=== PATIENT | female | born 1935 | race Caucasian/White ===

== ENCOUNTER 2017-03-01 23:31 | Inpatient (IN) | payer MEDICARE ==
[2017-03-01 23:42] LABS: Lactic Acid 2.6 (0.4-2.0); VBG BASE EXCESS -0.3 (-2.0-2.0); VBG CARBOXYHEMOGLOBIN 2.2 % T HGB (0.0-6.9); VBG HCO3- 28.3 meq/L (22-28); VBG HEMOGLOBIN 14.1; VBG O2 SATURATION 71.9 (95-100); VBG POTASSIUM 4.7 (3.5-5.1); VBG pH 7.26 (7.32-7.42)
[2017-03-01] MEDS ORDERED: DUONEB 0.5-3 MG/3 ml Neb IH ONE ×2 (23:44→23:48)
[2017-03-01] MEDS ORDERED: Lasix 40 MG/4 ML IV ONE (23:44)
[2017-03-01 23:47] LABS: BASOPHIL % 0.4 % (0.0-0.4); Eosinophil % 2.8 % (0.00-5.0); Granulocytes % 53.3 % (36.0-66.0); Lymphocytes % 35.9 % (24.0-44.0); Mean Cell Volume 100.2 fl (78-100); Mean Corpuscular Hemoglobin 31.9 pg (26-32); Mean Platelet Volume 10.1 fl (6-9.5); Monocytes % 7.6 % (0.0-12.0); Platelet Count 213 K/mm3 (150-450); Red Blood Count 4.17 M/mm3 (4.1-5.4); Red Cell Distribution Width 13.7 % (11.5-14.0); White Blood Count 11.3 K/mm3 (4.0-10.5)
[2017-03-01] MEDS ORDERED: Lasix 40 MG/4 ML ONE (23:47)
[2017-03-01] MEDS ORDERED: Zithromax 500 MG/ 250 ML NaCl Premix 500 MG/250 ML IVPB IV STA (23:56)
[2017-03-01] MEDS ORDERED: ROCEPHIN 1 Gm-D5w 50 ml Bag** 1 G/50 ML IVPB IV STA (23:56)
[2017-03-02] MEDS ORDERED: Zithromax 500 MG/ 250 ML NaCl Premix 500 MG/250 ML IVPB IV ONE
[2017-03-02] MEDS ORDERED: ROCEPHIN 1 Gm-D5w 50 ml Bag** 1 G/50 ML IVPB IV ONE
[2017-03-02 00:11] LABS: ADD URINE CULTURE? YES (NO); Bacteria MODERATE /HPF (NEGATIVE); COMPLETE URINE MICROSCOPIC? YES; Collection Type CLEAN CATCH; Epithelial Cells MODERATE /HPF (FEW); Mucus MODERATE /HPF (NEGATIVE); Ph 5.5 (5-6)
[2017-03-02 00:16] LABS: INR 1.45 (0.8-3.0); PROTIME 16.3 SECONDS (9.95-12.35)
[2017-03-02 00:17] LABS: ALBUMIN 3.8 g/dL (3.4-5.0); BILIRUBIN,TOTAL 1.4 mg/dL (0.2-1.0); Carbon Dioxide 27.6 mEq/L (21-32); MAGNESIUM 2.2 mg/dL (1.8-2.4); Potassium 4.5 mEq/L (3.5-5.1); Total Protein 7.6 gm/dL (6.4-8.2)
[2017-03-02 00:19] LABS: PTT 28.6 SECONDS (25.3-37.0)
--- NOTE | 2017-03-02 00:27 | ERPHSYRPT ---
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 She has hx of COPD, CHF, and prior AICD. She uses home oxygen. She is on [facility]. Daughters reports she has been skipping some lasix doses as her ankles were not swollen. She has increasing dyspnea all day today. No cough or fever. No chest pain. She is on eliquis and ASA for afib and took those today. Missed AM lasix today. Worsened shortness of breath so called EMS. Initial saturations 70's but required CPAP for improvement. Symptoms severe. Timing/Duration: today Severity of Dyspnea-Max: severe Severity of Dyspnea-Current: severe Allergies/Adverse Reactions: OLIVIA Inhibitors Allergy (Intermediate, Verified 03/02/17 00:05) Home Medications: Amlodipine Besylate 5 mg [Norvasc 5 mg] 5 mg PO DAILY 03/02/17 [History] Apixaban [Eliquis] 2.5 mg PO BID 03/02/17 [History] Aspirin 81 gm Chew [Baby Aspirin 81 mg Chew] 81 mg PO DAILY 03/02/17 [ History] Atorvastatin Calcium [Lipitor] 20 mg PO HS 03/02/17 [History] Citalopram Hydrobromide 20 mg* [ceLEXa 20 MG] 20 mg PO DAILY 03/02/17 [ History] Furosemide 20 mg [Lasix 20 mg] 20 mg PO BID 03/02/17 [History] Levothyroxine Sodium 112 Mcg [Synthroid 112 Mcg] 112 mcg PO DAILY 03/02/17 [History] Nitroglycerin 0.4 mg (Ed) [Nitrostat 0.4 MG (ED)] 0.4 mg SL UD 03/02/17 [ History] Tramadol HCl 50 mg [Ultram 50 mg] 50 mg PO UD 03/02/17 [History] Hx Tetanus, Diphtheria Vaccination/Date Given: No Hx Influenza Vaccination/Date Given: Yes Hx Pneumococcal Vaccination/Date Given: Yes Immunizations Up to Date: Yes - Review of Systems Constitutional: Malaise, Weakness, No Fever, No Chills Eyes: No Symptoms Ears, Nose, & Throat: No Symptoms Respiratory: Dyspnea, No Cough Cardiac: Edema, No Chest Pain Abdominal/Gastrointestinal: No Abdominal Pain, No Nausea, No Vomiting All Other Systems: Reviewed and Negative - Past Medical History Pertinent Past Medical History: Yes Cardiac History: Arrhythmia, Congestive Heart Failure, Hypertension Respiratory History: COPD Endocrine Medical History: Hypothyroidism - Past Surgical History Past Surgical History: Yes Cardiac: CABG Other Surgical History: AICD - Social History Smoking Status: Never smoker Drug Use: none Patient Lives Alone: No - Nursing Vital Signs Nursing Vital Signs: Initial Vital Signs Temperature 96.5 F Temperature Source Core Pulse Rate 82 Respiratory Rate 24 Blood Pressure [] 113/66 Pain Intensity 0 - Physical Exam General Appearance: alert Eye Exam: PERRL/EOMI Neck Exam: normal inspection, non-tender, supple Respiratory Exam: respiratory distress, diminished breath sounds Cardiovascular/Chest Exam: irregular, No edema Abdominal/Gastrointestinal Exam: soft, No tenderness, No distention Extremity Exam: non-tender, pedal edema (mild) Neurologic Exam: alert, oriented x 3, cooperative Skin Exam: warm, dry, No rash SpO2 Interpretation: normal, O2 applied SpO2: 100 Oxygen Delivery: BiPap - Course Nursing assessment & vital signs reviewed: Yes EKG Interpreted by Me: RATE, A-fib (with some pacemaker rhythm), Non-specific ST Changes (similar to prior tracing) - Radiology Exams cxr X-ray Interpretation: Interpreted by me (COPD with bilateral infiltates consistent with CHF) Ordered Tests: Active Orders 24 hr Category Date Time Status Lift Team Technician STAT Care 03/01/17 23:34 Active Catheter-[place] Conrad STAT Care 03/01/17 23:34 Active EKG-ER Only STAT Care 03/01/17 23:34 Active IV Insertion STAT Care 03/01/17 23:34 Active NPO (ED) STAT Care 03/01/17 23:34 Active Pulse Oximetry (ED) STAT Care 03/01/17 23:34 Active CHEST 1 VIEW (PORTABLE) Stat Exams 03/01/17 23:34 Taken BLOOD CULTURE Stat Lab 03/01/17 23:40 Received CBC W DIFF Stat Lab 03/01/17 23:40 Completed CMP Stat Lab 03/01/17 23:40 Completed CULTURE,URINE Stat Lab 03/01/17 23:51 Received Lactic Acid Stat Lab 03/01/17 23:34 Results Lactic Acid Urgent Lab 03/02/17 00:40 Completed MAGNESIUM Stat Lab 03/01/17 23:40 Completed NT PRO BNP Stat Lab 03/01/17 23:40 Completed PROTIME WITH INR Stat Lab 03/01/17 23:40 Completed PTT Stat Lab 03/01/17 23:40 Completed TROPONIN Q3H Lab 03/01/17 23:48 Completed TROPONIN Q3H Lab 03/02/17 02:45 Ordered TROPONIN Q3H Lab 03/02/17 05:45 Ordered TROPONIN Q3H Lab 03/02/17 08:45 Ordered TROPONIN Q3H Lab 03/02/17 11:45 Ordered UA W/ MICROSCOPIC Stat Lab 03/01/17 23:51 Completed VENOUS BLOOD GAS Stat Lab 03/01/17 23:34 Results VENOUS BLOOD GAS Urgent Lab 03/02/17 00:40 Completed Respiratory Nebulizer STAT RT 03/01/17 23:45 Completed Medication Summary Generic Name Dose Route Start Last Admin Trade Name Freq PRN Reason Stop Dose Admin Azithromycin 500 mg in 250 mls @ 250 mls/hr 03/01/17 23:56 03/02/17 00:07 Zithromax 500 Mg/ 250 Ml Nacl Premix IV 03/02/17 00:55 250 mls/hr STAT STA Administration Discontinued Medications Generic Name Dose Route Start Last Admin Trade Name Freq PRN Reason Stop Dose Admin Albuterol/Ipratropium 3 ml 03/01/17 23:44 03/01/17 23:49 Duoneb 0.5-3 Mg/3 Ml Neb IH 03/01/17 23:45 3 ml STAT ONE Administration Albuterol/Ipratropium Confirm 03/01/17 23:48 Duoneb 0.5-3 Mg/3 Ml Neb Administered 03/01/17 23:49 Dose 3 ml IH .STK-MED ONE Furosemide 40 mg 03/01/17 23:44 03/01/17 23:58 Lasix 40 Mg/4 Ml IV 03/01/17 23:45 40 mg STAT ONE Administration Furosemide Confirm 03/01/17 23:47 Lasix 40 Mg/4 Ml Administered 03/01/17 23:48 Dose 40 mg .ROUTE .STK-MED ONE Ceftriaxone Sodium/Dextrose 1 g in 50 mls @ 100 mls/hr 03/01/17 23:56 00:04 Rocephin 1 Gm-D5w 50 Ml Bag IV 03/02/17 00:25 100 mls/hr STAT STA Administration Azithromycin Confirm 03/02/17 00:00 Zithromax 500 Mg/ 250 Ml Nacl Premix Administered 03/02/17 00:01 Dose 500 mg in 250 mls @ ud IV .STK-MED ONE Ceftriaxone Sodium/Dextrose Confirm 03/02/17 00:00 Rocephin 1 Gm-D5w 50 Ml Bag Administered 03/02/17 00:01 Dose 1 g in 50 mls @ ud IV .STK-MED ONE Insulin Aspart 5 unit 03/02/17 00:48 Novolog Insulin SQ 03/02/17 00:49 STAT ONE Lab/Rad Data: Laboratory Result Diagrams 03/01/17 23:40 03/01/17 23:40 Laboratory Results 03/02/17 03/01/17 03/01/17 Range/Units 00:40 23:51 23:48 WBC (4.0-10.5) K/mm3 RBC (4.1-5.4) M/mm3 Hgb (12.0-16.0) gm/dl Hct (35-47) % MCV (78-100) fl MCH (26-32) pg MCHC (32-36) g/dl RDW (11.5-14.0) % Plt Count (150-450) K/mm3 MPV (6-9.5) fl Gran % (36.0-66.0) % Lymphocytes % (24.0-44.0) % Monocytes % (0.0-12.0) % Eosinophils % (0.00-5.0) % Basophils % (0.0-0.4) % Basophils # (0-0.4) INR (0.8-3.0) APTT (25.3-37.0) SECONDS VBG pH 7.26 L (7.32-7.42) VBG pCO2 at Pat Temp 71 H* (42-55) mm/Hg VBG pO2 at Pat Temp 29 (25-40) mm/Hg VBG HCO3 31.9 H* (22-28) meq/L VBG O2 Sat ([place]) 48.7 L (95-100) VBG Base Excess 3.1 H (-2.0-2.0) VBG Hemoglobin 11.7 VBG Carboxyhemoglobin 1.6 (0.0-6.9) % T HGB POC Potassium 4.6 (3.5-5.1) Sodium (136-145) mEq/L Potassium (3.5-5.1) mEq/L Chloride (98-107) mEq/L Carbon Dioxide (21-32) mEq/L Anion Gap (5-15) MEQ/L BUN (9-20) mg/dL Creatinine (0.55-1.30) mg/dl Estimated GFR ML/MIN Glucose (70-110) MG/DL Lactic Acid 1.8 (0.4-2.0) Calcium (8.5-10.1) mg/dL Magnesium (1.8-2.4) mg/dL Total Bilirubin (0.2-1.0) mg/dL AST (15-37) U/L ALT (12-78) U/L Alkaline Phosphatase (46-116) U/L Troponin I < 0.017 (0.000-0.056) ng/ml NT-Pro-B Natriuret Pep (0-450) pg/ml Serum Total Protein (6.4-8.2) gm/dL Albumin (3.4-5.0) g/dL Ur Collection Type CLEAN CATCH Urine Color YELLOW (YELLOW) Urine Appearance SLIGHTLY CLOUDY (CLEAR) Urine pH 5.5 (5-6) Ur Specific [place] >=1.030 (1.005-1.025) Urine Protein 100 (Negative) Urine Glucose (UA) NEGATIVE (NEGATIVE) mg/dL Urine Ketones NEGATIVE (NEGATIVE) Urine Nitrite NEGATIVE (NEGATIVE) Urine Bilirubin NEGATIVE (NEGATIVE) Urine Urobilinogen 2 (0-1) mg/dL Urine WBC (Auto) SMALL (NEGATIVE) Urine RBC (Auto) LARGE (0-5) Gaston/ul Urine Microscopic RBC 25-50 (0-2) /HPF Urine Microscopic WBC 10-15 (0-5) /HPF Ur Epithelial Cells MODERATE (FEW) /HPF Urine Bacteria MODERATE (NEGATIVE) /HPF Urine Mucus MODERATE (NEGATIVE) /HPF Specimen Received 03/01/17 [id number] 03/01/17 03/01/17 03/01/17 Range/Units 23:40 23:40 23:40 WBC 11.3 H (4.0-10.5) K/mm3 RBC 4.17 (4.1-5.4) M/mm3 Hgb 13.3 (12.0-16.0) gm/dl Hct 41.8 (35-47) % MCV 100.2 H (78-100) fl MCH 31.9 (26-32) pg MCHC 31.8 L (32-36) g/dl RDW 13.7 (11.5-14.0) % Plt Count 213 (150-450) K/mm3 MPV 10.1 H (6-9.5) fl Gran % 53.3 (36.0-66.0) % Lymphocytes % 35.9 (24.0-44.0) % Monocytes % 7.6 (0.0-12.0) % Eosinophils % 2.8 (0.00-5.0) % Basophils % 0.4 (0.0-0.4) % Basophils # 0.04 (0-0.4) INR 1.45 (0.8-3.0) APTT 28.6 (25.3-37.0) SECONDS VBG pH (7.32-7.42) VBG pCO2 at Pat Temp (42-55) mm/Hg VBG pO2 at Pat Temp (25-40) mm/Hg VBG HCO3 (22-28) meq/L VBG O2 Sat ([place]) (95-100) VBG Base Excess (-2.0-2.0) VBG Hemoglobin VBG Carboxyhemoglobin (0.0-6.9) % T HGB POC Potassium (3.5-5.1) Sodium 138 (136-145) mEq/L Potassium 4.5 (3.5-5.1) mEq/L Chloride 100 (98-107) mEq/L Carbon Dioxide 27.6 (21-32) mEq/L Anion Gap 15.0 (5-15) MEQ/L BUN 23 H (9-20) mg/dL Creatinine 1.77 H (0.55-1.30) mg/dl Estimated GFR 29 ML/MIN Glucose 271 H (70-110) MG/DL Lactic Acid (0.4-2.0) Calcium 9.1 (8.5-10.1) mg/dL Magnesium 2.2 (1.8-2.4) mg/dL Total Bilirubin 1.40 H (0.2-1.0) mg/dL AST 34 (15-37) U/L ALT 27 (12-78) U/L Alkaline Phosphatase 90 (46-116) U/L Troponin I (0.000-0.056) ng/ml NT-Pro-B Natriuret Pep 5328 H (0-450) pg/ml Serum Total Protein 7.6 (6.4-8.2) gm/dL Albumin 3.8 (3.4-5.0) g/dL Ur Collection Type Urine Color (YELLOW) Urine Appearance (CLEAR) Urine pH (5-6) Ur Specific [place] (1.005-1.025) Urine Protein (Negative) Urine Glucose (UA) (NEGATIVE) mg/dL Urine Ketones (NEGATIVE) Urine Nitrite (NEGATIVE) Urine Bilirubin (NEGATIVE) Urine Urobilinogen (0-1) mg/dL Urine WBC (Auto) (NEGATIVE) Urine RBC (Auto) (0-5) Gaston/ul Urine Microscopic RBC (0-2) /HPF Urine Microscopic WBC (0-5) /HPF Ur Epithelial Cells (FEW) /HPF Urine Bacteria (NEGATIVE) /HPF Urine Mucus (NEGATIVE) /HPF Specimen Received 03/01/17 Range/Units 23:34 WBC (4.0-10.5) K/mm3 RBC (4.1-5.4) M/mm3 Hgb (12.0-16.0) gm/dl Hct (35-47) % MCV (78-100) fl MCH (26-32) pg MCHC (32-36) g/dl RDW (11.5-14.0) % Plt Count (150-450) K/mm3 MPV (6-9.5) fl Gran % (36.0-66.0) % Lymphocytes % (24.0-44.0) % Monocytes % (0.0-12.0) % Eosinophils % (0.00-5.0) % Basophils % (0.0-0.4) % Basophils # (0-0.4) INR (0.8-3.0) APTT (25.3-37.0) SECONDS VBG pH 7.26 L (7.32-7.42) VBG pCO2 at Pat Temp 63 H* (42-55) mm/Hg VBG pO2 at Pat Temp 41 H (25-40) mm/Hg VBG HCO3 28.3 H (22-28) meq/L VBG O2 Sat ([place]) 71.9 L (95-100) VBG Base Excess -0.3 (-2.0-2.0) VBG Hemoglobin 14.1 VBG Carboxyhemoglobin 2.2 (0.0-6.9) % T HGB POC Potassium 4.7 (3.5-5.1) Sodium (136-145) mEq/L Potassium (3.5-5.1) mEq/L Chloride (98-107) mEq/L Carbon Dioxide (21-32) mEq/L Anion Gap (5-15) MEQ/L BUN (9-20) mg/dL Creatinine (0.55-1.30) mg/dl Estimated GFR ML/MIN Glucose (70-110) MG/DL Lactic Acid 2.6 H (0.4-2.0) Calcium (8.5-10.1) mg/dL Magnesium (1.8-2.4) mg/dL Total Bilirubin (0.2-1.0) mg/dL AST (15-37) U/L ALT (12-78) U/L Alkaline Phosphatase (46-116) U/L Troponin I (0.000-0.056) ng/ml NT-Pro-B Natriuret Pep (0-450) pg/ml Serum Total Protein (6.4-8.2) gm/dL Albumin (3.4-5.0) g/dL Ur Collection Type Urine Color (YELLOW) Urine Appearance (CLEAR) Urine pH (5-6) Ur Specific [place] (1.005-1.025) Urine Protein (Negative) Urine Glucose (UA) (NEGATIVE) mg/dL Urine Ketones (NEGATIVE) Urine Nitrite (NEGATIVE) Urine Bilirubin (NEGATIVE) Urine Urobilinogen (0-1) mg/dL Urine WBC (Auto) (NEGATIVE) Urine RBC (Auto) (0-5) Gaston/ul Urine Microscopic RBC (0-2) /HPF Urine Microscopic WBC (0-5) /HPF Ur Epithelial Cells (FEW) /HPF Urine Bacteria (NEGATIVE) /HPF Urine Mucus (NEGATIVE) /HPF Specimen Received - Progress Progress Note: 03/02/17 00:26 Pt afebrile. LAsix, bipap given. She has possible UTI. Will cover with abtx. Cultures sent. This appears to be CHF exacerbation as prior. Daughters request SCO status with no CPR or ventilator but agree with admission here, bipap, and medication management. CHF likely exacerbated by her lasix noncompliance. 03/02/17 00:54 She is clinically improved. Even speaking to family. pH same. LActic improved. Called Dr Llamas and will admit to ICU. Discussed with .: Gab Will see patient in: hospital (full admit) Counseled pt/family regarding: lab results, diagnosis, need for follow-up, rad results - Departure Time of Disposition: 00:55 Departure Disposition: In-patient Admission Clinical Impression: CHF (congestive heart failure), Atrial fibrillation, UTI (urinary tract infection), Acute respiratory failure Condition: Fair Critical Care Time: Yes Critical Care Time(excluding separately billable procedures): 30-74 minutes Referrals: MITCH LLAMAS MD [Primary Care Provider] -
[2017-03-02 00:45] LABS: Lactic Acid 1.8 (0.4-2.0); VBG BASE EXCESS 3.1 (-2.0-2.0); VBG CARBOXYHEMOGLOBIN 1.6 % T HGB (0.0-6.9); VBG HCO3- 31.9 meq/L (22-28); VBG HEMOGLOBIN 11.7; VBG O2 SATURATION 48.7 (95-100); VBG POTASSIUM 4.6 (3.5-5.1); VBG pH 7.26 (7.32-7.42)
[2017-03-02] MEDS ORDERED: NovoLOG Insulin SQ ONE (00:48)
[2017-03-02] MEDS ORDERED: NovoLOG Insulin ONE (00:56)
[2017-03-02 03:20] LABS: A-aADO2 203; ARTERIAL BLD GAS O2 SATURATION 99.1 % (95-100); ARTERIAL BLOOD GAS BASE EXCESS 4.7 (-2.0-2.0); ARTERIAL BLOOD GAS FIO2 50 %; ARTERIAL BLOOD GAS PO2 101 mmHg (75-100); ARTERIAL BLOOD GAS pH 7.45 (7.35-7.45); BIPAP(E) 6; BIPAP(I) 14
[2017-03-02] MEDS: DUONEB 0.5-3 MG/3 ml Neb IH SCH ×3 (03:25→11:14)
[2017-03-02 05:58] LABS: Mean Cell Volume 99.7 fl (78-100); Platelet Count 143 K/mm3 (150-450); Red Cell Distribution Width 13.6 % (11.5-14.0); White Blood Count 7.5 K/mm3 (4.0-10.5)
[2017-03-02 06:03] LABS: Mean Corpuscular Hemoglobin 32.1 pg (26-32)
[2017-03-02 06:33] LABS: ANION GAP 12.9 MEQ/L (5-15); Potassium 4.1 mEq/L (3.5-5.1)
--- NOTE | 2017-03-02 09:05 | XRAY ---
Indication: Dyspnea. Comparison: December 04, 2011. Portable chest demonstrates interval enlarging heart, central vascular congestion, and small bibasilar effusions favoring cardiac decompensation. Superimposed pneumonia not completely excluded. Again CABG surgery with new left-sided dual lead pacemaker. Bony thorax intact.
[2017-03-02] MEDS: Nitrostat 0.4 MG Tablet SL PRN ×2 (11:14→11:58)
[2017-03-02] MEDS: Lasix 40 MG/4 ML IV SCH ×2 (11:25→17:59)
[2017-03-02] MEDS: ceLEXa 20 MG PO SCH (11:25)
[2017-03-02] MEDS: ELIQUIS PO SCH ×2 (11:25→21:39)
[2017-03-02] MEDS: Pepcid 20 MG VIAL IV SCH ×2 (11:25→21:39)
[2017-03-02] MEDS: NORVASC 5 MG PO SCH (11:25)
[2017-03-02] MEDS: ECOTRIN 81 MG PO SCH (11:25)
[2017-03-02] MEDS: COREG 12.5 MG PO SCH ×2 (11:25→21:39)
[2017-03-02] MEDS: SYNTHROID 112 MCG PO SCH (11:26)
[2017-03-02] MEDS ORDERED: MEDICATION INTERVENTION MC PRN (11:33)
--- NOTE | 2017-03-02 12:54 | PCM.HP ---
History of Present Illness - Chief Complaint Chief Complaint: Shortness of Breath History of Present Illness: 82 y/o patient of Dr De Guzman and Dr sorensen. She has hx of COPD, CHF, and prior AICD. She uses home oxygen. She is on [facility]. Daughters reports she has been skipping some lasix doses as her ankles were not swollen. She has increasing dyspnea all day today. No cough or fever. No chest pain. She is on eliquis and ASA for afib and took those today. Missed AM lasix today. Worsened shortness of breath so called EMS. Initial saturations 70's but required CPAP for improvement. Symptoms severe. - Review of Systems Constitutional: No Fever, No Chills Eyes: No Symptoms Ears, Nose, & Throat: No Symptoms Respiratory: Orthopnea, Short Of Breath, No Cough Cardiac: Edema, Palpitations, No Chest Pain, No Syncope Abdominal/Gastrointestinal: No Abdominal Pain, No Nausea, No Vomiting, No Diarrhea Genitourinary Symptoms: No Dysuria Musculoskeletal: No Back Pain, No Neck Pain Skin: No Rash Neurological: No Dizziness, No Focal Weakness, No Sensory Changes Psychological: No Symptoms Endocrine: No Symptoms Hematologic/Lymphatic: No Symptoms Immunological/Allergic: No Symptoms Medications & Allergies Home Medications: Home Medication List Amlodipine Besylate 5 mg [Norvasc 5 mg] 5 mg PO DAILY 03/02/17 [History Confirmed 03/02/17] Apixaban [Eliquis] 2.5 mg PO BID 03/02/17 [History Confirmed 03/02/17] Aspirin 81 gm Chew [Baby Aspirin 81 mg Chew] 81 mg PO DAILY 03/02/17 [ History Confirmed 03/02/17] Atorvastatin Calcium [Lipitor] 20 mg PO HS 03/02/17 [History Confirmed 03/02/17] Carvedilol 12.5 mg [Coreg 12.5 mg] 25 mg PO BID 03/02/17 [History Confirmed 03/02/17] Citalopram Hydrobromide 20 mg* [ceLEXa 20 MG] 20 mg PO DAILY 03/02/17 [ History Confirmed 03/02/17] Furosemide 20 mg [Lasix 20 mg] 20 mg PO BID 03/02/17 [History Confirmed ] Levothyroxine Sodium 112 Mcg [Synthroid 112 Mcg] 112 mcg PO DAILY 03/02/17 [History Confirmed 03/02/17] Nitroglycerin 0.4 mg (Ed) [Nitrostat 0.4 MG (ED)] 0.4 mg SL UD 03/02/17 [ History Confirmed 03/02/17] Tramadol HCl 50 mg [Ultram 50 mg] 50 mg PO TIDPRN PRN 03/02/17 [History Confirmed 03/02/17] Allergies/Adverse Reactions: Allergies Allergy/AdvReac Type Severity Reaction Status Date / Time OLIVIA Inhibitors Allergy Intermediate Verified 03/02/17 00:05 - Past Medical History Past Medical History: Yes Neurological History: No Pertinent History ENT History: No Pertinent History Cardiac History: Arrhythmia, Congestive Heart Failure, Hypertension Respiratory History: COPD Endocrine Medical History: Hypothyroidism Musculoskelatal History: No Pertinent History GI Medical History: No Pertinent History History: No Pertinent History Pyscho-Social History: No Pertinent History Reproductive Disorders: No Pertinent History - Female History Are you now?: No - Past Surgical History Past Surgical History: Yes Neuro Surgical History: No Pertinent History Cardiac History: CABG Respiratory Surgery: No Pertinent History GI Surgical History: No Pertinent History Genitourinary Surgical Hx: No Pertinent History Musculskeletal Surgical Hx: No Pertinent History Female Surgical History: No Pertinent History Other Surgical History: AICD replaced by pacemaker 4weeks ago. - Social History Smoking Status: Former smoker Alcohol: None Drug Use: none - Physical Exam Vital Signs: Vital Signs - 24 hr Temp Pulse Resp BP BP Pulse Ox 03/02/17 12:00 99.5 F 124 H 23 115/87 91 L 03/02/17 11:58 140 H 115/87 03/02/17 11:14 140 H 20 131/89 92 L 03/02/17 10:00 99.9 F 136 H 19 131/89 91 L 03/02/17 08:00 98.8 F 115 H 25 H 127/93 92 L 03/02/17 06:48 91 H 18 95 03/02/17 06:00 98.6 F 52 L 14 118/73 95 03/02/17 04:00 98.2 F 86 17 136/67 98 03/02/17 03:25 90 20 96 03/02/17 02:00 98.4 F 92 H 24 122/67 98 03/02/17 01:59 94 H 25 H 134/75 88 L 03/02/17 00:57 92 H 26 H 104/67 99 03/02/17 00:55 100 03/02/17 00:19 82 24 113/66 100 03/01/17 23:50 96.5 F 97 H 30 H 145/78 100 03/01/17 23:49 91 H 25 H 100 Oxygen-Last 24 hours O2 Percentage 5 Liters = 40% O2 Percentage 5 Liters = 40% O2 Percentage 5 Liters = 40% O2 Percentage 40% O2 Percentage 50% O2 Percentage 50% O2 Percentage 6 Liters = 44% General Appearance: no apparent distress, alert Neurologic Exam: alert, oriented x 3, cooperative, normal mood/affect, nml cerebellar function, nml station & gait, sensation nml, No motor deficits Eye Exam: PERRL/EOMI, eyes nml inspection Ears, Nose, Throat Exam: normal ENT inspection, TMs normal, pharynx normal, moist mucous membranes Neck Exam: normal inspection, non-tender, supple, full range of motion Respiratory Exam: normal breath sounds, lungs clear, No respiratory distress Cardiovascular Exam: regular rate/rhythm, normal heart sounds, normal peripheral pulses Gastrointestinal/Abdomen Exam: soft, normal bowel sounds, No tenderness, No mass Back Exam: normal inspection, normal range of motion, No CVA tenderness, No vertebral tenderness Extremity Exam: normal inspection, normal range of motion, pelvis stable Skin Exam: normal color, warm, dry, No rash Lymphatic Exam: No adenopathy Results - Labs Lab/Micro Results: Accuchecks Accucheck Value: 131 Accucheck Value: 148 Lab Results-Last 24 Hours 03/02/17 03/02/17 03/02/17 Range/Units 03:13 03:13 03:14 WBC (4.0-10.5) K/mm3 RBC (4.1-5.4) M/mm3 Hgb (12.0-16.0) gm/dl Hct (35-47) % MCV (78-100) fl MCH (26-32) pg MCHC (32-36) g/dl RDW (11.5-14.0) % Plt Count (150-450) K/mm3 MPV (6-9.5) fl Puncture Site RIGHT BRACHIAL pCO2 42 (35-45) mmHg pO2 101 H (75-100) mmHg Base Excess 4.7 H (-2.0-2.0) O2 Saturation 95.4 (94-100) g/dF ABG pH 7.45 (7.35-7.45) ABG HCO3 29.2 H* (22-28) ABG O2 Sat (Measured) 99.1 (95-100) % Chris Test NOT APPLICABLE A-a Gradient 203 a/A Ratio 0.33 Hemoglobin 10.9 Carboxyhemoglobin 2.5 (0.0-6.9) % THgb Methemoglobin 1.1 L (1.4-1.5) % Potassium 4.0 (3.5-5.1) Temperature 37.0 C POC O2 Flow Rate 50 % Inspiratory BiPAP 14 Expiratory BiPAP 6 Sodium (136-145) mEq/L Chloride (98-107) mEq/L Carbon Dioxide (21-32) mEq/L Anion Gap (5-15) MEQ/L BUN (9-20) mg/dL Creatinine (0.55-1.30) mg/dl Estimated GFR ML/MIN Glucose (70-110) MG/DL Lactic Acid 1.0 (0.4-2.0) Calcium (8.5-10.1) mg/dL Troponin I 0.032 (0.000-0.056) ng/ml NT-Pro-B Natriuret Pep (0-450) pg/ml 03/02/17 03/02/17 03/02/17 Range/Units 05:25 05:25 05:25 WBC 7.5 (4.0-10.5) K/mm3 RBC 3.70 L (4.1-5.4) M/mm3 Hgb 11.9 L (12.0-16.0) gm/dl Hct 36.9 (35-47) % MCV 99.7 (78-100) fl MCH 32.1 H (26-32) pg MCHC 32.2 (32-36) g/dl RDW 13.6 (11.5-14.0) % Plt Count 143 L (150-450) K/mm3 MPV 10.0 H (6-9.5) fl Puncture Site pCO2 (35-45) mmHg pO2 (75-100) mmHg Base Excess (-2.0-2.0) O2 Saturation (94-100) g/dF ABG pH (7.35-7.45) ABG HCO3 (22-28) ABG O2 Sat (Measured) (95-100) % Chris Test A-a Gradient a/A Ratio Hemoglobin Carboxyhemoglobin (0.0-6.9) % THgb Methemoglobin (1.4-1.5) % Potassium 4.1 (3.5-5.1) Temperature C POC O2 Flow Rate % Inspiratory BiPAP Expiratory BiPAP Sodium 141 (136-145) mEq/L Chloride 102 (98-107) mEq/L Carbon Dioxide 30.0 (21-32) mEq/L Anion Gap 12.9 (5-15) MEQ/L BUN 23 H (9-20) mg/dL Creatinine 1.61 H (0.55-1.30) mg/dl Estimated GFR 32 ML/MIN Glucose 121 H (70-110) MG/DL Lactic Acid (0.4-2.0) Calcium 9.2 (8.5-10.1) mg/dL Troponin I 0.037 (0.000-0.056) ng/ml NT-Pro-B Natriuret Pep 6832 H (0-450) pg/ml 03/02/17 03/02/17 Range/Units 08:55 11:42 WBC (4.0-10.5) K/mm3 RBC (4.1-5.4) M/mm3 Hgb (12.0-16.0) gm/dl Hct (35-47) % MCV (78-100) fl MCH (26-32) pg MCHC (32-36) g/dl RDW (11.5-14.0) % Plt Count (150-450) K/mm3 MPV (6-9.5) fl Puncture Site pCO2 (35-45) mmHg pO2 (75-100) mmHg Base Excess (-2.0-2.0) O2 Saturation (94-100) g/dF ABG pH (7.35-7.45) ABG HCO3 (22-28) ABG O2 Sat (Measured) (95-100) % Chris Test A-a Gradient a/A Ratio Hemoglobin Carboxyhemoglobin (0.0-6.9) % THgb Methemoglobin (1.4-1.5) % Potassium (3.5-5.1) Temperature C POC O2 Flow Rate % Inspiratory BiPAP Expiratory BiPAP Sodium (136-145) mEq/L Chloride (98-107) mEq/L Carbon Dioxide (21-32) mEq/L Anion Gap (5-15) MEQ/L BUN (9-20) mg/dL Creatinine (0.55-1.30) mg/dl Estimated GFR ML/MIN Glucose (70-110) MG/DL Lactic Acid (0.4-2.0) Calcium (8.5-10.1) mg/dL Troponin I 0.034 0.038 (0.000-0.056) ng/ml NT-Pro-B Natriuret Pep (0-450) pg/ml Accuchecks Accucheck Value: 131 Accucheck Value: 148 - Other Procedures and Tests Respiratory Therapy 03/02/17 02:24 BiPap/CPAP Assessment ROUTINE 03/02/17 02:25 Oxygen NASAL CANNULA 2 lpm 03/02/17 03:00 Respiratory Nebulizer Q4H Assessment/Plan (1) Atrial fibrillation Current Visit: Yes Status: Acute Code(s): I48.91 - UNSPECIFIED ATRIAL FIBRILLATION (2) CHF (congestive heart failure) Current Visit: Yes Status: Acute Code(s): I50.9 - HEART FAILURE, UNSPECIFIED
[2017-03-02] MEDS: Xopenex 1.25 MG/0.5 ML UD NEBULE IH SCH (18:43)
[2017-03-02] MEDS: PULMICORT 0.5 MG/2 ML RESPULES IH SCH (18:43)
[2017-03-02] MEDS: ZOCOR 20MG PO SCH (21:38)
[2017-03-02] MEDS: NovoLOG Insulin SQ PRN (21:46)
[2017-03-02] MEDS: ROCEPHIN 1 Gm-D5w 50 ml Bag** 1 G/50 ML IVPB IV SCH (21:48)
[2017-03-02] MEDS ORDERED: NON-FORMULARY ITEM (Atorvastatin Calcium [Lipitor] 20 MG) PO SCH (22:00)
[2017-03-02] MEDS ORDERED: LASIX 20 MG PO SCH (22:00)
[2017-03-02] MEDS: Zithromax 500 MG/ 250 ML NaCl Premix 500 MG/250 ML IVPB IV SCH (22:20)
[2017-03-03] MEDS ORDERED: Sodium Chloride 3 ML UD NEBULES IH ONE (06:37)
[2017-03-03] MEDS: Xopenex 1.25 MG/0.5 ML UD NEBULE IH SCH ×2 (06:40→19:43)
[2017-03-03] MEDS: PULMICORT 0.5 MG/2 ML RESPULES IH SCH ×2 (06:40→19:43)
[2017-03-03] MEDS: Lasix 40 MG/4 ML IV SCH ×2 (09:16→17:27)
[2017-03-03] MEDS: COREG 12.5 MG PO SCH ×2 (09:16→22:37)
[2017-03-03] MEDS: ECOTRIN 81 MG PO SCH (09:16)
[2017-03-03] MEDS: SYNTHROID 112 MCG PO SCH (09:16)
[2017-03-03] MEDS: ceLEXa 20 MG PO SCH (09:16)
[2017-03-03] MEDS: Pepcid 20 MG VIAL IV SCH ×2 (09:16→22:37)
[2017-03-03] MEDS: NORVASC 5 MG PO SCH (09:16)
[2017-03-03] MEDS: ELIQUIS PO SCH ×2 (09:17→22:38)
[2017-03-03] MEDS ORDERED: BABY ASPIRIN 81 MG CHEW PO SCH (10:00)
--- NOTE | 2017-03-03 14:31 | XRAY ---
Indication: CHF. Comparison: March 01, 2017. PA/lateral chest again hyperinflated with the heart slightly smaller and diminished vascular congestion. Little to no improvement in the bibasilar infiltrates/atelectasis/effusion. No new abnormalities.
--- NOTE | 2017-03-03 14:44 | PROG NOTE ---
DATE: 03/03/17 Chart reviewed. Events noted. At the time of this evaluation, the patient says she is still having some shortness of breath. Denied chest pain. Complains of cough with occasional phlegm. Denies palpitations. Complains of fatigue. Appears comfortable. VITALS: BP 102/64, heart rate 97, respiratory rate 20, temperature 100, O2 saturations of 92-94% on 5 liters. HEENT: Pallor present. No icterus noted. NECK: No JVD present. CVS: S1 and S2 present. RESPIRATORY: Breath sounds bilaterally diminished. Occasional crackles present. ABDOMEN: Obese, soft, nontender. NEURO: She is alert and awake. Answers simple questions appropriately. EXTREMITIES: Reveals no edema on bilateral lower extremities. There were no new labs today. Medications were reviewed. ASSESSMENT: 82 y/o woman with impression: 1. CONGESTIVE HEART FAILURE WITH DECOMPENSATION. 2. ATRIAL FIBRILLATION. 3. CHRONIC RESPIRATORY FAILURE. 4. HISTORY OF HYPERTENSION/CORONARY ARTERY DISEASE. 5. ANEMIA. 6. RENAL INSUFFICIENCY. 7. ACUTE BRONCHOPNEUMONIA. PLAN: 1. Patient appears to be hemodynamically stable. Patient's directory carrier was contacted by nursing yesterday and they have advised to continue current medications and no transfer is indicated at this time per cardiology. 2. Will continue to follow CBC. 3. Continue IV diuretics and broad spectrum IV antibiotics. 4. Continue to follow labs and chest x-ray. 5. Transfer out of Intensive Care Unit. Plan was discussed with patient. She seems to be in understanding and agreement. Discussed with patient's nurse, Mir.
[2017-03-03] MEDS: NovoLOG Insulin SQ PRN (17:35)
[2017-03-03] MEDS: ULTRAM 50 MG PO PRN (18:39)
[2017-03-03] MEDS ORDERED: TYLENOL 325 MG PO PRN (18:59)
[2017-03-03] MEDS ORDERED: Ativan 2 MG/1 ML VIAL IV PRN (19:02)
[2017-03-03] MEDS: Zithromax 500 MG/ 250 ML NaCl Premix 500 MG/250 ML IVPB IV SCH (22:37)
[2017-03-03] MEDS: ROCEPHIN 1 Gm-D5w 50 ml Bag** 1 G/50 ML IVPB IV SCH (22:37)
[2017-03-03] MEDS: ZOCOR 20MG PO SCH (22:39)
[2017-03-04 05:40] LABS: Mean Cell Volume 97.8 fl (78-100); Mean Platelet Volume 9.8 fl (6-9.5); Platelet Count 150 K/mm3 (150-450); Red Blood Count 3.56 M/mm3 (4.1-5.4); Red Cell Distribution Width 13.9 % (11.5-14.0); White Blood Count 7.6 K/mm3 (4.0-10.5)
[2017-03-04 06:21] LABS: ANION GAP 10.8 MEQ/L (5-15); Carbon Dioxide 29.6 mEq/L (21-32); Potassium 3.1 mEq/L (3.5-5.1)
[2017-03-04] MEDS: Xopenex 1.25 MG/0.5 ML UD NEBULE IH SCH ×2 (06:44→19:12)
[2017-03-04] MEDS: PULMICORT 0.5 MG/2 ML RESPULES IH SCH ×2 (06:44→19:13)
[2017-03-04] MEDS ORDERED: PREVNAR 13 SYRINGE IM ONE (10:00)
[2017-03-04] MEDS: ceLEXa 20 MG PO SCH (11:02)
[2017-03-04] MEDS: COREG 12.5 MG PO SCH ×2 (11:02→22:11)
[2017-03-04] MEDS: Pepcid 20 MG VIAL IV SCH ×2 (11:03→22:12)
[2017-03-04] MEDS: ELIQUIS PO SCH ×2 (11:03→22:10)
[2017-03-04] MEDS: ECOTRIN 81 MG PO SCH (11:03)
[2017-03-04] MEDS: Lasix 40 MG/4 ML IV SCH (11:03)
[2017-03-04] MEDS: NORVASC 5 MG PO SCH (11:03)
[2017-03-04] MEDS: SYNTHROID 112 MCG PO SCH (11:06)
[2017-03-04] MEDS ORDERED: Klor Con 10 MEQ PO SCH ×2 (12:00→18:00)
[2017-03-04] MEDS: Lasix 20 MG/2 ML IV SCH (16:54)
[2017-03-04] MEDS ORDERED: Lasix 40 MG/4 ML IV SCH (17:00)
[2017-03-04] MEDS: ULTRAM 50 MG PO PRN (18:39)
[2017-03-04] MEDS: ZOCOR 20MG PO SCH (22:11)
[2017-03-04] MEDS: ROCEPHIN 1 Gm-D5w 50 ml Bag** 1 G/50 ML IVPB IV SCH (22:12)
[2017-03-04] MEDS: Zithromax 500 MG/ 250 ML NaCl Premix 500 MG/250 ML IVPB IV SCH (22:51)
[2017-03-05 05:50] LABS: Mean Cell Volume 99.4 fl (78-100); Mean Platelet Volume 10.2 fl (6-9.5); Platelet Count 140 K/mm3 (150-450); Red Blood Count 3.48 M/mm3 (4.1-5.4); Red Cell Distribution Width 13.9 % (11.5-14.0); White Blood Count 7.9 K/mm3 (4.0-10.5)
[2017-03-05 05:52] LABS: ANION GAP 9.6 MEQ/L (5-15); Carbon Dioxide 30.3 mEq/L (21-32); Mean Corpuscular Hemoglobin 32.7 pg (26-32); Potassium 3.8 mEq/L (3.5-5.1)
[2017-03-05] MEDS: PULMICORT 0.5 MG/2 ML RESPULES IH SCH ×2 (06:50→18:46)
[2017-03-05] MEDS: Xopenex 1.25 MG/0.5 ML UD NEBULE IH SCH ×2 (06:50→18:46)
[2017-03-05] MEDS: ULTRAM 50 MG PO PRN (08:05)
[2017-03-05] MEDS: NORVASC 5 MG PO SCH (09:53)
[2017-03-05] MEDS: Klor Con 10 MEQ PO SCH (09:53)
[2017-03-05] MEDS: ECOTRIN 81 MG PO SCH (09:54)
[2017-03-05] MEDS: Lasix 20 MG/2 ML IV SCH ×2 (09:54→16:31)
[2017-03-05] MEDS: ceLEXa 20 MG PO SCH (09:54)
[2017-03-05] MEDS: ELIQUIS PO SCH ×2 (09:54→21:17)
[2017-03-05] MEDS: Pepcid 20 MG VIAL IV SCH ×2 (09:54→21:21)
[2017-03-05] MEDS: SYNTHROID 112 MCG PO SCH (09:55)
[2017-03-05] MEDS: COREG 12.5 MG PO SCH ×2 (10:04→21:17)
[2017-03-05] MEDS: Flonase NASAL NS SCH ×2 (11:55→21:19)
[2017-03-05 13:18] LABS: Collection Type VOID
[2017-03-05 13:19] LABS: COMPLETE URINE MICROSCOPIC? YES
[2017-03-05 13:22] LABS: Epithelial Cells RARE /HPF (FEW); WBC 0-2 /HPF (0-5)
--- NOTE | 2017-03-05 20:55 | XRAY ---
Indication: Acute respiratory failure. CHF. Comparison: March 03, 2017. PA/lateral chest again hyperinflated with bibasilar infiltrates/atelectasis/effusions, slightly worsened on the left. Heart remains borderline enlarged again with left-sided AICD. No new cardiopulmonary abnormalities. Comment: Preliminary interpretation was made by [facility]. No critical discrepancy.
[2017-03-05] MEDS: ZOCOR 20MG PO SCH (21:17)
[2017-03-05] MEDS: ROCEPHIN 1 Gm-D5w 50 ml Bag** 1 G/50 ML IVPB IV SCH (21:20)
[2017-03-05] MEDS: Zithromax 500 MG/ 250 ML NaCl Premix 500 MG/250 ML IVPB IV SCH (21:56)
[2017-03-06 06:08] LABS: Mean Cell Volume 98.6 fl (78-100); Mean Corpuscular Hemoglobin 31.9 pg (26-32); Mean Platelet Volume 10.2 fl (6-9.5); Platelet Count 161 K/mm3 (150-450); Red Blood Count 3.57 M/mm3 (4.1-5.4); Red Cell Distribution Width 13.9 % (11.5-14.0); White Blood Count 8.3 K/mm3 (4.0-10.5)
[2017-03-06 06:37] LABS: ALBUMIN 3.1 g/dL (3.4-5.0); ANION GAP 11.2 MEQ/L (5-15); Carbon Dioxide 30.2 mEq/L (21-32); Potassium 3.8 mEq/L (3.5-5.1); Total Protein 6.5 gm/dL (6.4-8.2)
[2017-03-06] MEDS: PULMICORT 0.5 MG/2 ML RESPULES IH SCH ×2 (06:46→18:59)
[2017-03-06] MEDS: Xopenex 1.25 MG/0.5 ML UD NEBULE IH SCH ×2 (06:46→18:59)
[2017-03-06] MEDS: COREG 12.5 MG PO SCH ×2 (09:37→22:11)
[2017-03-06] MEDS: ECOTRIN 81 MG PO SCH (09:37)
[2017-03-06] MEDS: Flonase NASAL NS SCH ×2 (09:37→22:24)
[2017-03-06] MEDS: ELIQUIS PO SCH ×2 (09:37→22:11)
[2017-03-06] MEDS: NORVASC 5 MG PO SCH (09:37)
[2017-03-06] MEDS: Lasix 20 MG/2 ML IV SCH ×2 (09:37→16:48)
[2017-03-06] MEDS: ceLEXa 20 MG PO SCH (09:37)
[2017-03-06] MEDS: Pepcid 20 MG VIAL IV SCH ×2 (09:37→22:12)
[2017-03-06] MEDS: Klor Con 10 MEQ PO SCH (09:38)
[2017-03-06] MEDS: SYNTHROID 112 MCG PO SCH (09:39)
[2017-03-06] MEDS: ULTRAM 50 MG PO PRN (09:52)
--- NOTE | 2017-03-06 14:11 | PCM.NOTE ---
Date and Time: 03/06/17 1411 Subjective Assessment: still very short of breath - Review of Systems Constitutional: No Fever, No Chills Eyes: No Symptoms Ears, Nose, & Throat: No Symptoms Respiratory: No Cough, No Short Of Breath Cardiac: No Chest Pain, No Edema, No Syncope Abdominal/Gastrointestinal: No Abdominal Pain, No Nausea, No Vomiting, No Diarrhea Genitourinary Symptoms: No Dysuria Musculoskeletal: No Back Pain, No Neck Pain Skin: No Rash Neurological: No Dizziness, No Focal Weakness, No Sensory Changes Psychological: No Symptoms Endocrine: No Symptoms Hematologic/Lymphatic: No Symptoms Immunological/Allergic: No Symptoms Objective Exam General Appearance: mild distress, alert Neurologic Exam: alert, oriented x 3, cooperative, normal mood/affect, nml cerebellar function, sensation nml, No motor deficits Skin Exam: normal color, warm, dry Eye Exam: PERRL, EOMI, eyes nml inspection Ears, Nose, Throat Exam: normal ENT inspection, pharynx normal, moist mucous membranes Neck Exam: normal inspection, non-tender, supple, full range of motion Respiratory Exam: normal breath sounds, lungs clear, No respiratory distress Cardiovascular Exam: regular rate/rhythm, normal heart sounds Gastrointestinal/Abdomen Exam: soft, No tenderness, No mass Extremity Exam: normal inspection, normal range of motion Back Exam: normal inspection, normal range of motion, No CVA tenderness, No vertebral tenderness Pelvic Exam: deferred Rectal Exam: deferred OBJECTIVE DATA Vital Signs: Vital Signs - 24 hr Temp Pulse Resp BP Pulse Ox 03/06/17 10:59 97.6 F 92 H 18 136/88 92 L 03/06/17 07:20 98.0 F 73 24 129/65 96 03/06/17 06:57 73 24 96 03/06/17 03:57 98.2 F 85 20 137/64 92 L 03/06/17 00:00 97.9 F 64 20 118/69 93 L 03/05/17 20:00 97.5 F 61 18 123/71 95 03/05/17 18:49 61 18 95 03/05/17 16:00 98.5 F 86 20 113/61 91 L Oxygen-Last 24 hours O2 Percentage 2 Liters = 28% O2 Percentage 50% O2 Percentage 4 Liters = 36% O2 Percentage 4 Liters = 36% O2 Percentage 4 Liters = 36% O2 Percentage 6 Liters = 44% Pain Assessment - Last Documented Pain Intensity 0 Pain Scale Used 0-10 Pain Scale Intake and Output: Intake & Output 03/04/17 03/05/17 03/06/17 03/07/17 11:59 11:59 11:59 11:59 Intake Total 1175 820 503 Output Total 3825 2660 1150 Balance -640 -137 -985 Weight 57.3 kg 58.377 kg 57.153 kg Lab Results: Accuchecks Date 03/06/17 Date 03/06/17 Date 03/05/17 Date 03/05/17 Time 11:30 Time 07:30 Time 16:30 Accucheck Value: 156 Accucheck Value: 142 Accucheck Value: 127 Accucheck Value: 137 Lab Results-Last 24 Hours 03/06/17 03/06/17 Range/Units 05:50 05:50 WBC 8.3 (4.0-10.5) K/mm3 RBC 3.57 L (4.1-5.4) M/mm3 Hgb 11.4 L (12.0-16.0) gm/dl Hct 35.2 (35-47) % MCV 98.6 (78-100) fl MCH 31.9 (26-32) pg MCHC 32.4 (32-36) g/dl RDW 13.9 (11.5-14.0) % Plt Count 161 (150-450) K/mm3 MPV 10.2 H (6-9.5) fl Sodium 139 (136-145) mEq/L Potassium 3.8 (3.5-5.1) mEq/L Chloride 101 (98-107) mEq/L Carbon Dioxide 30.2 (21-32) mEq/L Anion Gap 11.2 (5-15) MEQ/L BUN 26 H (9-20) mg/dL Creatinine 1.63 H (0.55-1.30) mg/dl Estimated GFR 32 ML/MIN Glucose 118 H (70-110) MG/DL Calcium 9.1 (8.5-10.1) mg/dL Total Bilirubin 1.00 (0.2-1.0) mg/dL AST 22 (15-37) U/L ALT 17 (12-78) U/L Alkaline Phosphatase 61 (46-116) U/L Serum Total Protein 6.5 (6.4-8.2) gm/dL Albumin 3.1 L (3.4-5.0) g/dL Radiology Exams: Radiology Procedures Category Date Time Status CHEST 2 VIEWS (PA AND LAT) Routine Exams 03/05/17 11:30 Completed Assessment/Plan (1) Atrial fibrillation Current Visit: Yes Status: Acute Code(s): I48.91 - UNSPECIFIED ATRIAL FIBRILLATION (2) CHF (congestive heart failure) Current Visit: Yes Status: Acute Code(s): I50.9 - HEART FAILURE, UNSPECIFIED
[2017-03-06] MEDS: ROCEPHIN 1 Gm-D5w 50 ml Bag** 1 G/50 ML IVPB IV SCH (22:11)
[2017-03-06] MEDS: NovoLOG Insulin SQ PRN (22:23)
[2017-03-06] MEDS: Zithromax 500 MG/ 250 ML NaCl Premix 500 MG/250 ML IVPB IV SCH (22:55)
[2017-03-06] MEDS: ZOCOR 20MG PO SCH (23:00)
[2017-03-07] MEDS: Xopenex 1.25 MG/0.5 ML UD NEBULE IH SCH (07:16)
[2017-03-07] MEDS: PULMICORT 0.5 MG/2 ML RESPULES IH SCH (07:16)
[2017-03-07] MEDS: COREG 12.5 MG PO SCH (10:09)
[2017-03-07] MEDS: NORVASC 5 MG PO SCH (10:09)
[2017-03-07] MEDS: ELIQUIS PO SCH (10:09)
[2017-03-07] MEDS: Pepcid 20 MG VIAL IV SCH (10:10)
[2017-03-07] MEDS: Lasix 20 MG/2 ML IV SCH (10:10)
[2017-03-07] MEDS: ceLEXa 20 MG PO SCH (10:10)
[2017-03-07] MEDS: ECOTRIN 81 MG PO SCH (10:11)
[2017-03-07] MEDS: Klor Con 10 MEQ PO SCH (10:11)
[2017-03-07] MEDS: Flonase NASAL NS SCH (10:11)
[2017-03-07] MEDS: SYNTHROID 112 MCG PO SCH (10:12)
--- NOTE | 2017-03-07 12:45 | PCM.DS ---
Discharge Summary Date of Admission: 03/02/17 01:27 Admitting Physician: MITCH LLAMAS Consults: Consults on Case 03/02/17 14:52 Tele-Health Consult Primary Care Provider: MITCH LLAMAS Allergies Allergies OLIVIA Inhibitors Allergy (Intermediate, Verified 03/02/17 00:05) Hospital Summary - Hospital Course Hospital Course: Chief Complaint Diagnosis Shortness of Breath Allergies Allergy/AdvReac Type Severity Reaction Status Date / Time OLIVIA Inhibitors Allergy Intermediate Verified 03/02/17 00:05 Vital Signs (Last 24 hours) Temp Pulse Resp BP Pulse Ox 03/07/17 08:00 97.3 F 97 H 20 159/70 96 03/07/17 07:19 97 H 20 96 03/07/17 04:00 98.6 F 82 19 141/60 96 03/07/17 00:23 98.7 F 79 19 132/69 95 03/06/17 20:17 97.7 F 85 19 132/71 91 L 03/06/17 18:59 97 H 20 95 03/06/17 15:57 98.2 F 71 18 147/75 93 L 03/06/17 15:12 92 L Home Medications Medication Instructions Recorded Confirmed Last Taken Type Amlodipine Besylate 5 mg 5 mg PO DAILY 03/02/17 03/02/17 03/02/17 History [Norvasc 5 mg] Apixaban [Eliquis] 2.5 mg PO BID 03/02/17 03/02/17 03/02/17 History Aspirin 81 gm Chew [Baby 81 mg PO DAILY 03/02/17 03/02/17 03/02/17 History Aspirin 81 mg Chew] Atorvastatin Calcium [Lipitor] 20 mg PO HS 03/02/17 03/02/17 03/02/17 History Carvedilol 12.5 mg [Coreg 12.5 25 mg PO BID 03/02/17 03/02/17 03/01/17 History mg] Citalopram Hydrobromide 20 mg* 20 mg PO DAILY 03/02/17 03/02/17 03/02/17 History [ceLEXa 20 MG] Furosemide 20 mg [Lasix 20 20 mg PO BID 06/05/1103/02/17 03/02/17 History mg] Levothyroxine Sodium 112 Mcg 112 mcg PO DAILY 03/02/17 03/02/17 03/02/17 History [Synthroid 112 Mcg] Nitroglycerin 0.4 mg (Ed) 0.4 mg SL UD 03/02/17 03/02/17 Unknown History [Nitrostat 0.4 MG (ED)] Tramadol HCl 50 mg [Ultram 50 50 mg PO TIDPRN PRN 03/02/17 03/02/17 Unknown History mg] Current Medications Generic Name Dose Route Start Last Admin Trade Name Freq PRN Reason Stop Dose Admin Acetaminophen 650 mg 03/03/17 18:59 03/03/17 19:53 Tylenol 325 Mg PO 04/02/17 18:58 650 mg Q8H PRN PRN Administration PAIN AND/OR FEVER Amlodipine Besylate 5 mg 03/02/17 12:00 03/07/17 10:09 Norvasc 5 Mg PO 04/01/17 11:59 5 mg DAILY ABHIJIT Administration Apixaban 2.5 mg 03/02/17 11:15 03/07/17 10:09 Eliquis PO 04/01/17 11:14 2.5 mg BID ABHIJIT Administration Aspirin 81 mg 03/02/17 11:30 03/07/17 10:11 Ecotrin 81 Mg PO 04/01/17 11:29 81 mg DAILY ABHIJIT Administration Budesonide 0.5 mg 03/02/17 19:00 03/07/17 07:16 Pulmicort 0.5 Mg/2 Ml Respules IH 04/01/17 18:59 0.5 mg BIDRT ABHIIJT Administration Carvedilol 25 mg 03/02/17 11:15 03/07/17 10:09 Coreg 12.5 Mg PO 04/01/17 11:14 25 mg BID ABHIJIT Administration Citalopram Hydrobromide 20 mg 03/02/17 11:15 03/07/17 10:10 Celexa 20 Mg PO 04/01/17 11:14 20 mg DAILY ABHIJIT Administration Famotidine 20 mg 03/02/17 10:00 03/07/17 10:10 Pepcid 20 Mg Vial IV 04/01/17 09:59 20 mg Q12HT ABHIJIT Administration Fluticasone Propionate 0 gm 03/05/17 12:00 03/07/17 10:11 Flonase Nasal NS 04/04/17 11:59 16 gm BID ABHIJIT Administration Furosemide 20 mg 03/04/17 17:00 03/07/17 10:10 Lasix 20 Mg/2 Ml IV 04/03/17 16:59 20 mg BID DIURETIC ABHIJIT Administration Azithromycin 500 mg in 250 mls @ 250 mls/hr 03/02/17 22:00 03/06/17 22:55 Zithromax 500 Mg/ 250 Ml Nacl Premix IV 04/01/17 21:59 250 mls/hr Q24H22 ABHIJIT Administration Ceftriaxone Sodium/Dextrose 1 g in 50 mls @ 100 mls/hr 03/02/17 22:00 22:11 Rocephin 1 Gm-D5w 50 Ml Bag IV 04/01/17 21:59 100 mls/hr Q24H22 ABHIJIT Administration Insulin Aspart 0 unit 03/02/17 01:28 03/06/17 22:23 Novolog Insulin SQ 04/01/17 01:27 3 unit UD PRN Administration HYPERGLYCEMIA Levalbuterol HCl 1.25 mg 03/02/17 19:00 03/07/17 07:16 Xopenex 1.25 Mg/0.5 Ml Ud Nebule IH 04/01/17 18:59 1.25 mg BIDRT ABHIJIT Administration Levothyroxine Sodium 112 mcg 03/02/17 11:15 03/07/17 10:12 Synthroid 112 Mcg PO 04/01/17 11:14 112 mcg DAILY ABHIJIT Administration Lorazepam 0.25 mg 03/03/17 19:02 Ativan 2 Mg/1 Ml Vial IV 04/02/17 19:01 Q4H PRN PRN ANXIETY Nitroglycerin 0.4 mg 03/02/17 11:07 03/02/17 11:58 Nitrostat 0.4 Mg Tablet SL 04/01/17 11:06 0.4 mg PRN PRN Administration Potassium Chloride 10 meq 03/05/17 10:00 03/07/17 10:11 Klor Con 10 Meq PO 04/04/17 09:59 10 meq DAILY ABHIJIT Administration Simvastatin 20 mg 03/02/17 22:00 03/06/17 23:00 Zocor 20mg PO 04/01/17 21:59 20 mg HS ABHIJIT Administration Tramadol HCl 50 mg 03/02/17 11:08 03/06/17 09:52 Ultram 50 Mg PO 04/01/17 11:07 50 mg TIDPRN PRN Administration PAIN Discontinued Medications Generic Name Dose Route Start Last Admin Trade Name Freq PRN Reason Stop Dose Admin Albuterol/Ipratropium 3 ml 03/01/17 23:44 03/01/17 23:49 Duoneb 0.5-3 Mg/3 Ml Neb IH 03/01/17 23:45 3 ml STAT ONE Administration Albuterol/Ipratropium Confirm 03/01/17 23:48 Duoneb 0.5-3 Mg/3 Ml Neb Administered 03/01/17 23:49 Dose 3 ml IH .STK-MED ONE Albuterol/Ipratropium 3 ml 03/02/17 03:00 03/02/17 11:14 Duoneb 0.5-3 Mg/3 Ml Neb IH 04/01/17 02:59 Not Given Q4HRT ABHIJIT Furosemide 40 mg 03/01/17 23:44 03/01/17 23:58 Lasix 40 Mg/4 Ml IV 03/01/17 23:45 40 mg STAT ONE Administration Furosemide Confirm 03/01/17 23:47 Lasix 40 Mg/4 Ml Administered 03/01/17 23:48 Dose 40 mg .ROUTE .STK-MED ONE Furosemide 40 mg 03/02/17 10:00 03/04/17 11:03 Lasix 40 Mg/4 Ml IV 04/01/17 09:59 40 mg BID DIURETIC ABHIJIT Administration Furosemide 20 mg 03/04/17 17:00 Lasix 40 Mg/4 Ml IV 04/03/17 16:59 BID DIURETIC ABHIJIT Ceftriaxone Sodium/Dextrose 1 g in 50 mls @ 100 mls/hr 03/01/17 23:56 00:04 Rocephin 1 Gm-D5w 50 Ml Bag IV 03/02/17 00:25 100 mls/hr STAT STA Administration Azithromycin 500 mg in 250 mls @ 250 mls/hr 03/01/17 23:56 03/02/17 00:07 Zithromax 500 Mg/ 250 Ml Nacl Premix IV 03/02/17 00:55 250 mls/hr STAT STA Administration Azithromycin Confirm 03/02/17 00:00 Zithromax 500 Mg/ 250 Ml Nacl Premix Administered 03/02/17 00:01 Dose 500 mg in 250 mls @ ud IV .STK-MED ONE Ceftriaxone Sodium/Dextrose Confirm 03/02/17 00:00 Rocephin 1 Gm-D5w 50 Ml Bag Administered 03/02/17 00:01 Dose 1 g in 50 mls @ ud IV .STK-MED ONE Insulin Aspart 5 unit 03/02/17 00:48 03/02/17 00:57 Novolog Insulin SQ 03/02/17 00:49 5 unit STAT ONE Administration Insulin Aspart Confirm 03/02/17 00:56 Novolog Insulin Administered 03/02/17 00:57 Dose 5 unit .ROUTE .STK-MED ONE Pneumococcal 13-Valent Conj Vacc 0.5 ml 03/04/17 10:00 03/04/17 11:45 Prevnar 13 Syringe IM 03/04/17 10:01 0.5 ml .ONCE ONE Administration Potassium Chloride 40 meq 03/04/17 12:00 03/04/17 12:06 Klor Con 10 Meq PO 03/04/17 12:01 40 meq 1200 ABHIJIT Administration Potassium Chloride 20 meq 03/04/17 18:00 03/04/17 16:53 Klor Con 10 Meq PO 03/04/17 18:01 20 meq 1800 ABHIJIT Administration Sodium Chloride Confirm 03/03/17 06:37 Sodium Chloride 3 Ml Ud Nebules Administered 03/03/17 06:38 Dose 3 ml IH .STK-MED ONE Intake & Output (Last 24 hours) 03/05/17 03/06/17 03/07/17 03/08/17 11:59 11:59 11:59 11:59 Intake Total 820 503 480 Output Total 1350 1150 1100 Balance -830 -586 -250 Weight 58.377 kg 57.153 kg 61.235 kg Patient Care Notes (Last 24 hours) 03/07/17 08:24 Case Management Note by Beatrice Daugherty REFERRAL TO [facility] LONG-TERM. SPOKE WITH LYLY. TO REPORT TO CARLEEN MOTTA, [employer] , COVERING FOR MYLES COTTER, [employer]. Initialized on 03/07/17 08:24 - END OF NOTE 03/07/17 08:00 (created 03/07/17 08:13) Case Management Note by Beatrice Daugherty LONG DISCUSSION WITH JOAN BECERRA, PT'S DAUGHTER. REPORTS THAT THEY HAVE TALKED A FAMILY AND DISCUSSED A SNF STAY THEY FEEL PT CAN NOT BE LEFT ALONE AT PRESENT TIME. REPORTS THAT THEY HAVE DISCUSSED ALL OPTIONS, HHC, HOSPICE, HIRED CAREGIVERS, AND SNF STAY. REPORTS THAT THEY ALSO DISCUSSED PT MOVING IN WITH ONE OF HER DAUGHTERS. JOAN REPORTS THAT CHAYITO DOES NOT WANT TO MOVE IN WITH FAMILY. SHE IS HOPEFUL THAT SHE CAN GO FOR REHAB STAY AND BECOME STRONG ENOUGH TO RETURN HOME WITH HOSPICE SERVICES AND THAT IS WHAT THEY WOULD LIKE TO TRY. DECLINED ADDNL NEEDS AT PRESENT. REQUESTS REFERRAL TO [facility] THEY ARE FAMILIAR WITH STAFF THERE. DECLINED ADDNL NEEDS AT PRESENT. WILL CONTINUE TO FOLLOW AND ASSESS FOR ALL DC NEEDS. Initialized on 03/07/17 08:13 - END OF NOTE 03/06/17 15:13 Physical Therapy Note by Tatiana Brink PATIENT NOT A CANDIDATE FOR SKILLED THERAPY INTERVENTION. SHE IS UNABLE TO TOLERATE ROUTINE FUNCTIONAL TRANSFERS TO THE BATHROOM WITHOUT O2 DEPLETION REQUIRING BI-PAP VENTILATION HELP AFTERWARDS. IS ON 5L O2 NC AT ALL OTHER TIMES. 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 Initialized on 03/06/17 15:13 - END OF NOTE patient discharge plan d/w daughter. she wanted to go to rehab at [facility]. will continue BIPAP at night. continue all home meds, plan to d/c [facility] - Vitals & Intake/Output Vital Signs: Vital Signs Temperature 97.3 F 03/07/17 08:00 Pulse Rate 97 H 03/07/17 08:00 Respiratory Rate 20 03/07/17 08:00 Blood Pressure 159/70 03/07/17 08:00 O2 Sat by Pulse Oximetry 96 03/07/17 08:00 Oxygen-Last Documented O2 Percentage 50% Intake & Output: Intake & Output 03/05/17 03/06/17 03/07/17 06/14/17 11:59 11:59 11:59 11:59 Intake Total 820 503 480 Output Total 1350 1150 6655 Balance -074 -101 -494 Weight 58.377 kg 57.153 kg 61.235 kg - Lab Result Diagrams: 03/06/17 05:50 03/06/17 05:50 Lab Results-Last 24 Hrs: Accuchecks Date 03/07/17 Date 03/06/1703/06/17 Time 07:30 Time 16:30 Accucheck Value: 140 Accucheck Value: 192 Accucheck Value: 161 Micro Results-Entire Visit: Accuchecks Date 03/07/17 Date 03/06/17 Date 03/06/17 Time 07:30 Time 16:30 Accucheck Value: 140 Accucheck Value: 192 Accucheck Value: 161 - Procedures and Test Procedures and Tests throughout Hospitalization: Therapy Orders & Screens 03/02/17 02:24 BiPap/CPAP Assessment ROUTINE Comment: PRESSURES OF 14/6, O2 TO KEEP SPO2 >92% Diagnosis: Shortness of Breath 03/02/17 02:25 Oxygen NASAL CANNULA 2 lpm Comment: Diagnosis: Shortness of Breath 03/02/17 02:48 RT Screen per Nursing Assess ONCE Comment: Protocol Order Physician Instructions: Greater than 3 points order RT Admission Screen Reason For Exam: Triggered on Admission Diagnosis: Shortness of Breath Diagnosis: Shortness of Breath Pneumonia: No Home O2: Yes: 2L all the time Asthma: No CHF: Yes Home CPAP/BIPAP: No Home Nebs/MDI: No Total Points: 8 03/02/17 03:00 Respiratory Nebulizer Q4H Comment: DUONEB Q4 HOURS Diagnosis: Shortness of Breath 03/02/17 13:04 EKG ROUTINE Comment: Diagnosis: Shortness of Breath 03/02/17 19:00 Respiratory Nebulizer BID Comment: PULMICORT BID Diagnosis: Shortness of Breath Respiratory Nebulizer BID Comment: XOPENEX BID Diagnosis: Shortness of Breath Discharge Exam General Appearance: no apparent distress, alert Neurologic Exam: alert, oriented x 3, cooperative, normal mood/affect, nml cerebellar function, sensation nml, No motor deficits Skin Exam: normal color, warm, dry Eye Exam: PERRL, EOMI, eyes nml inspection Ears, Nose, Throat Exam: normal ENT inspection, pharynx normal, moist mucous membranes Neck Exam: normal inspection, non-tender, supple, full range of motion Respiratory Exam: crackles/rales, rhonchi, No respiratory distress Cardiovascular Exam: regular rate/rhythm, normal heart sounds Gastrointestinal/Abdomen Exam: soft, No tenderness, No mass Extremity Exam: normal inspection, normal range of motion Back Exam: normal inspection, normal range of motion, No CVA tenderness, No vertebral tenderness Pelvic Exam: deferred Rectal Exam: deferred Final Diagnosis/Problem List - Final Discharge Diagnosis/Problem (1) Atrial fibrillation Current Visit: Yes Status: Acute Assessment & Plan: Last Vital Signs Temp 97.3 F 03/07/17 08:00 Pulse 97 H 03/07/17 08:00 Resp 20 03/07/17 08:00 BP 159/70 03/07/17 08:00 Pulse Ox 96 03/07/17 08:00 Allergies OLIVIA Inhibitors Allergy (Intermediate, Verified 03/02/17 00:05) Active Medications Acetaminophen (Tylenol 325 Mg) 650 mg PO Q8H PRN PRN PRN Reason: PAIN AND/OR FEVER Stop: 04/02/17 18:58 Last Admin: 03/03/17 19:53 Dose: 650 mg Amlodipine Besylate (Norvasc 5 Mg) 5 mg PO DAILY [facility] Stop: 04/01/17 11:59 Last Admin: 03/07/17 10:09 Dose: 5 mg Apixaban (Eliquis) 2.5 mg PO BID [facility] Stop: 04/01/17 11:14 Last Admin: 03/07/17 10:09 Dose: 2.5 mg Aspirin (Ecotrin 81 Mg) 81 mg PO DAILY [facility] Stop: 04/01/17 11:29 Last Admin: 03/07/17 10:11 Dose: 81 mg Budesonide (Pulmicort 0.5 Mg/2 Ml Respules) 0.5 mg IH BIDRT [facility] Stop: 04/01/17 18:59 Last Admin: 03/07/17 07:16 Dose: 0.5 mg Carvedilol (Coreg 12.5 Mg) 25 mg PO BID [facility] Stop: 04/01/17 11:14 Last Admin: 03/07/17 10:09 Dose: 25 mg Citalopram Hydrobromide (Celexa 20 Mg) 20 mg PO DAILY [facility] Stop: 04/01/17 11:14 Last Admin: 03/07/17 10:10 Dose: 20 mg Famotidine (Pepcid 20 Mg Vial) 20 mg IV Q12HT [facility] Stop: 04/01/17 09:59 Last Admin: 03/07/17 10:10 Dose: 20 mg Fluticasone Propionate (Flonase Nasal) 0 gm NS BID [facility] Stop: 04/04/17 11:59 Last Admin: 03/07/17 10:11 Dose: 16 gm Furosemide (Lasix 20 Mg/2 Ml) 20 mg IV BID DIURETIC [facility] Stop: 04/03/17 16:59 Last Admin: 03/07/17 10:10 Dose: 20 mg Azithromycin (Zithromax 500 Mg/ 250 Ml Nacl Premix) 500 mg in 250 mls @ 250 mls /hr IV Q24H22 [facility] Stop: 04/01/17 21:59 Last Admin: 03/06/17 22:55 Dose: 250 mls/hr Ceftriaxone Sodium/Dextrose (Rocephin 1 Gm-D5w 50 Ml Bag) 1 g in 50 mls @ 100 mls/hr IV Q24H22 [facility] Stop: 04/01/17 21:59 Last Admin: 03/06/17 22:11 Dose: 100 mls/hr Insulin Aspart (Novolog Insulin) 0 unit SQ UD PRN PRN Reason: HYPERGLYCEMIA Stop: 04/01/17 01:27 Last Admin: 03/06/17 22:23 Dose: 3 unit Levalbuterol HCl (Xopenex 1.25 Mg/0.5 Ml Ud Nebule) 1.25 mg IH BIDRT [facility] Stop: 04/01/17 18:59 Last Admin: 03/07/17 07:16 Dose: 1.25 mg Levothyroxine Sodium (Synthroid 112 Mcg) 112 mcg PO DAILY [facility] Stop: 04/01/17 11:14 Last Admin: 03/07/17 10:12 Dose: 112 mcg Lorazepam (Ativan 2 Mg/1 Ml Vial) 0.25 mg IV Q4H PRN PRN PRN Reason: ANXIETY Stop: 04/02/17 19:01 Nitroglycerin (Nitrostat 0.4 Mg Tablet) 0.4 mg SL PRN PRN Stop: 04/01/17 11:06 Last Admin: 03/02/17 11:58 Dose: 0.4 mg Potassium Chloride (Klor Con 10 Meq) 10 meq PO DAILY ABHIJIT Stop: 04/04/17 09:59 Last Admin: 03/07/17 10:11 Dose: 10 meq Simvastatin (Zocor 20mg) 20 mg PO HS ABHIJIT Stop: 04/01/17 21:59 Last Admin: 03/06/17 23:00 Dose: 20 mg Tramadol HCl (Ultram 50 Mg) 50 mg PO TIDPRN PRN PRN Reason: PAIN Stop: 04/01/17 11:07 Last Admin: 03/06/17 09:52 Dose: 50 mg Intake & Output 03/07/17 03/08/17 11:59 11:59 Intake Total 480 Output Total 1100 Balance -620 Weight 61.235 kg (2) CHF (congestive heart failure) Current Visit: Yes Status: Acute - Discharge Discharge Date: 03/07/17 Disposition: DC TO [facility] Condition: Stable Prescriptions: New Alprazolam 0.25 mg [xanAX 0.25 MG] 0.25 mg PO TID PRN #45 tablet Continue Tramadol HCl 50 mg [Ultram 50 mg] 50 mg PO TIDPRN PRN PRN Reason: Pain Levothyroxine Sodium 112 Mcg [Synthroid 112 Mcg] 112 mcg PO DAILY Furosemide 20 mg [Lasix 20 mg] 20 mg PO BID Citalopram Hydrobromide 20 mg* [ceLEXa 20 MG] 20 mg PO DAILY Atorvastatin Calcium [Lipitor] 20 mg PO HS Aspirin 81 gm Chew [Baby Aspirin 81 mg Chew] 81 mg PO DAILY Apixaban [Eliquis] 2.5 mg PO BID Amlodipine Besylate 5 mg [Norvasc 5 mg] 5 mg PO DAILY Nitroglycerin 0.4 mg (Ed) [Nitrostat 0.4 MG (ED)] 0.4 mg SL UD Carvedilol 12.5 mg [Coreg 12.5 mg] 25 mg PO BID Follow up with: MITCH LLAMAS MD [Primary Care Provider] - 1 Week
[2017-03-07 16:33] VITALS: BP 142/88; PULSE 108; O2SAT 91
== END 2017-03-07 16:20 | DRG 308 ==
LOC: ED 23:31 → ICU 03-02 01:27 → MED SURG 03-04 10:20
PROVIDERS: ADMIT General Practice; ATTEND General Practice
DX: I48.91 Unspecified atrial fibrillation (principal); J96.90 Respiratory failure, unspecified, unspecified whether with hypoxia or hypercapnia; J18.0 Bronchopneumonia, unspecified organism; I25.810 Atherosclerosis of coronary artery bypass graft(s) without angina pectoris; I50.9 Heart failure, unspecified; J44.9 Chronic obstructive pulmonary disease, unspecified; Z99.81 Dependence on supplemental oxygen; I10 Essential (primary) hypertension; E03.9 Hypothyroidism, unspecified; D64.9 Anemia, unspecified; N28.9 Disorder of kidney and ureter, unspecified; Z79.01 Long term (current) use of anticoagulants; Z79.899 Other long term (current) drug therapy; Z95.0 Presence of cardiac pacemaker
CPT/HCPCS: 36000; 36415; 36600; 51702; 71010; 71020; 80048; 80053; 81000; 81002; 82375; 82803; 82805; 82962; 83036; 83605; 83735; 83880; 84443; 84484; 85025; 85027; 85610; 85730; 87040; 87086; 90670; 93005; 93041; 94002; 94003; 94640; 94760; 96360; 96361; 96365; 96366; 96367; 96372; 96374; 99285; 99291; G0009; J0456; J0696; J1940; A9270-GY

== ENCOUNTER 2017-03-19 19:12 | Observation (INO) | payer MEDICARE ==
[2017-03-19 20:35] LABS: Mean Cell Volume 100.5 fl (78-100); Mean Corpuscular Hemoglobin 33.3 pg (26-32); Mean Platelet Volume 10.9 fl (6-9.5); Platelet Count 273 K/mm3 (150-450); Red Blood Count 3.78 M/mm3 (4.1-5.4); Red Cell Distribution Width 14.9 % (11.5-14.0); White Blood Count 11.8 K/mm3 (4.0-10.5)
[2017-03-19 20:49] LABS: ANION GAP 15.3 MEQ/L (5-15); Carbon Dioxide 26.7 mEq/L (21-32); Potassium 4.5 mEq/L (3.5-5.1); TROPONIN 0.042 ng/ml (0.000-0.056)
[2017-03-19] MEDS ORDERED: ZOCOR 20MG PO SCH (23:55)
[2017-03-19] MEDS ORDERED: ELIQUIS PO ONE (23:55)
[2017-03-20] MEDS: COREG 12.5 MG PO SCH ×2 (00:05→09:42)
[2017-03-20] MEDS ORDERED: xanAX 0.25 MG PO PRN (07:14)
[2017-03-20] MEDS ORDERED: ULTRAM 50 MG PO PRN (07:14)
[2017-03-20] MEDS ORDERED: Nitrostat 0.4 MG (ED) SL PRN (07:14)
[2017-03-20] MEDS ORDERED: Nitrostat 0.4 MG Tablet SL PRN (07:21)
[2017-03-20] MEDS ORDERED: LASIX 20 MG PO SCH ×2 (07:30→12:00)
[2017-03-20] MEDS ORDERED: BABY ASPIRIN 81 MG CHEW PO SCH (10:00)
[2017-03-20] MEDS ORDERED: Klor Con 10 MEQ PO SCH (10:00)
[2017-03-20] MEDS ORDERED: NORVASC 5 MG PO SCH (10:00)
[2017-03-20] MEDS ORDERED: NON-FORMULARY ITEM (Potassium Chloride 20 Meq [Klor-Con 20 Meq] 20 MEQ) PO SCH (10:00)
[2017-03-20] MEDS ORDERED: ELIQUIS PO SCH (10:00)
[2017-03-20] MEDS ORDERED: ceLEXa 20 MG PO SCH (10:00)
[2017-03-20] MEDS ORDERED: ECOTRIN 81 MG PO SCH (10:00)
[2017-03-20] MEDS ORDERED: SYNTHROID 112 MCG PO SCH (10:00)
[2017-03-20 11:15] VITALS: BP 120/56; PULSE 80; O2SAT 97
--- NOTE | 2017-03-20 13:01 | PCM.SSS ---
History of Present Illness - Chief Complaint Chief Complaint: shortness of breath for 1 day History of Present Illness: is a 82 year old female.admitted with worsening short of breath at [facility]. so she was send to [facility]. - Review of Systems Constitutional: Lethargy, Weakness, No Fever, No Chills Eyes: No Symptoms Ears, Nose, & Throat: No Symptoms Respiratory: Orthopnea, Short Of Breath, No Cough Cardiac: Orthopnea, No Chest Pain, No Edema, No Syncope Abdominal/Gastrointestinal: No Abdominal Pain, No Nausea, No Vomiting, No Diarrhea Genitourinary Symptoms: No Dysuria Musculoskeletal: No Back Pain, No Neck Pain Skin: No Rash Neurological: No Dizziness, No Focal Weakness, No Sensory Changes Psychological: No Symptoms Endocrine: No Symptoms Hematologic/Lymphatic: No Symptoms Immunological/Allergic: No Symptoms Medications & Allergies Home Medications: Home Medication List Amlodipine Besylate 5 mg [Norvasc 5 mg] 5 mg PO DAILY 03/02/17 [History Confirmed 03/19/17] Apixaban [Eliquis] 2.5 mg PO BID 03/02/17 [History Confirmed 03/19/17] Aspirin 81 gm Chew [Baby Aspirin 81 mg Chew] 81 mg PO DAILY 03/02/17 [ History Confirmed 03/19/17] Atorvastatin Calcium [Lipitor] 20 mg PO HS 03/02/17 [History Confirmed 03/19/17] Carvedilol 12.5 mg [Coreg 12.5 mg] 25 mg PO BID 03/02/17 [History Confirmed 03/19/17] Citalopram Hydrobromide 20 mg* [ceLEXa 20 MG] 20 mg PO DAILY 03/02/17 [ History Confirmed 03/19/17] Furosemide 20 mg [Lasix 20 mg] 20 mg PO DAILY 03/02/17 [History Confirmed 03/19/17] Nitroglycerin 0.4 mg (Ed) [Nitrostat 0.4 MG (ED)] 0.4 mg SL UD PRN [History Confirmed 03/19/17] Tramadol HCl 50 mg [Ultram 50 mg] 50 mg PO TIDPRN PRN 03/02/17 [History Confirmed 03/19/17] Alprazolam 0.25 mg [xanAX 0.25 MG] 0.25 mg PO Q8H PRN PRN 03/19/17 [ History Confirmed 03/19/17] Furosemide 20 mg [Lasix 20 mg] 20 mg PO LUNCH 03/19/17 [History Confirmed 03/19/17] Levothyroxine Sodium 112 Mcg [Synthroid 112 Mcg] 112 mcg PO DAILY 03/19/17 [History Confirmed 03/19/17] Potassium Chloride 20 Meq [Klor-Con 20 MEQ] 20 meq PO BID 03/19/17 [History Confirmed 03/19/17] Allergies/Adverse Reactions: Allergies Allergy/AdvReac Type Severity Reaction Status Date / Time OLIVIA Inhibitors Allergy Intermediate Verified 03/02/17 00:05 - Past Medical History Past Medical History: Yes Neurological History: No Pertinent History ENT History: No Pertinent History Cardiac History: Arrhythmia, Congestive Heart Failure, Hypertension Respiratory History: COPD Endocrine Medical History: Hypothyroidism Musculoskelatal History: No Pertinent History GI Medical History: No Pertinent History History: No Pertinent History Pyscho-Social History: No Pertinent History Reproductive Disorders: No Pertinent History - Female History Are you now?: No - Past Surgical History Past Surgical History: Yes Neuro Surgical History: No Pertinent History Cardiac History: CABG Respiratory Surgery: No Pertinent History GI Surgical History: No Pertinent History Genitourinary Surgical Hx: No Pertinent History Musculskeletal Surgical Hx: No Pertinent History Female Surgical History: No Pertinent History Other Surgical History: pacemaker - Social History Smoking Status: Former smoker Exposure to second hand smoke: No Alcohol: None Drug Use: none - Physical Exam Vital Signs: Vital Signs - 24 hr Temp Pulse Resp BP Pulse Ox 03/20/17 11:13 97.8 F 80 20 120/56 97 03/20/17 07:10 97.9 F 78 22 122/58 98 03/20/17 04:00 97.0 F 69 17 119/58 98 03/19/17 23:53 97.4 F 80 12 142/74 99 03/19/17 21:00 98 03/19/17 20:41 96.2 F 106 H 27 H 122/61 98 Oxygen-Last 24 hours O2 Percentage 5 Liters = 40% O2 Percentage 50% General Appearance: no apparent distress, alert Neurologic Exam: alert, oriented x 3, cooperative, normal mood/affect, nml cerebellar function, nml station & gait, sensation nml, No motor deficits Eye Exam: PERRL/EOMI, eyes nml inspection Ears, Nose, Throat Exam: normal ENT inspection, TMs normal, pharynx normal, moist mucous membranes Neck Exam: normal inspection, non-tender, supple, full range of motion Respiratory Exam: prolonged expirations, crackles/rales, rhonchi, wheezing, No respiratory distress Cardiovascular Exam: regular rate/rhythm, normal heart sounds, normal peripheral pulses Gastrointestinal/Abdomen Exam: soft, normal bowel sounds, No tenderness, No mass Back Exam: normal inspection, normal range of motion, No CVA tenderness, No vertebral tenderness Extremity Exam: normal inspection, normal range of motion, pelvis stable Skin Exam: normal color, warm, dry, No rash Lymphatic Exam: No adenopathy Results - Labs Lab/Micro Results: Accuchecks Date 03/20/17 Time 11:07 Accucheck Value: 110 Lab Results-Last 24 Hours 03/19/17 03/19/17 Range/Units 19:00 19:00 WBC 11.8 H (4.0-10.5) K/mm3 RBC 3.78 L (4.1-5.4) M/mm3 Hgb 12.6 (12.0-16.0) gm/dl Hct 38.0 (35-47) % MCV 100.5 H (78-100) fl MCH 33.3 H (26-32) pg MCHC 33.2 (32-36) g/dl RDW 14.9 H (11.5-14.0) % Plt Count 273 (150-450) K/mm3 MPV 10.9 H (6-9.5) fl Sodium 142 (136-145) mEq/L Potassium 4.5 (3.5-5.1) mEq/L Chloride 104 (98-107) mEq/L Carbon Dioxide 26.7 (21-32) mEq/L Anion Gap 15.3 H (5-15) MEQ/L BUN 25 H (9-20) mg/dL Creatinine 1.94 H (0.55-1.30) mg/dl Estimated GFR 26 ML/MIN Glucose 311 H (70-110) MG/DL Calcium 8.5 (8.5-10.1) mg/dL Troponin I 0.042 (0.000-0.056) ng/ml NT-Pro-B Natriuret Pep 9222 H (0-450) pg/ml Accuchecks Date 03/20/17 Time 11:07 Accucheck Value: 110 - Other Procedures and Tests Respiratory Therapy 03/19/17 20:24 BiPap/CPAP Assessment ROUTINE Oxygen NASAL CANNULA 4 lpm Assessment/Plan (1) Atrial fibrillation Current Visit: Yes Status: Chronic Qualifiers: Atrial fibrillation type: chronic Qualified Code(s): I48.2 - Chronic atrial fibrillation Code(s): I48.91 - UNSPECIFIED ATRIAL FIBRILLATION (2) CHF (congestive heart failure) Current Visit: Yes Status: Acute Qualifiers: Congestive heart failure type: combined Congestive heart failure chronicity : acute on chronic Qualified Code(s): I50.43 - Acute on chronic combined systolic (congestive) and diastolic (congestive) heart failure Code(s): I50.9 - HEART FAILURE, UNSPECIFIED Hospital Summary - Hospital Course Hospital Course: Chief Complaint Diagnosis CHF Allergies Allergy/AdvReac Type Severity Reaction Status Date / Time OLIVIA Inhibitors Allergy Intermediate Verified 03/02/17 00:05 Vital Signs (Last 24 hours) Temp Pulse Resp BP Pulse Ox 03/20/17 11:13 97.8 F 80 20 120/56 97 03/20/17 07:10 97.9 F 78 22 122/58 98 03/20/17 04:00 97.0 F 69 17 119/58 98 03/19/17 23:53 97.4 F 80 12 142/74 99 03/19/17 21:00 98 03/19/17 20:41 96.2 F 106 H 27 H 122/61 98 Home Medications Medication Instructions Recorded Confirmed Last Taken Type Alprazolam 0.25 mg [xanAX 0.25 0.25 mg PO Q8H PRN PRN 03/19/17 03/19/17 Unknown History MG] Furosemide 20 mg [Lasix 20 20 mg PO LUNCH 03/19/17 03/19/17 Unknown History mg] Levothyroxine Sodium 112 Mcg 112 mcg PO DAILY 03/19/17 03/19/17 Unknown History [Synthroid 112 Mcg] Potassium Chloride 20 Meq 20 meq PO BID 03/19/17 03/19/17 Unknown History [Klor-Con 20 MEQ] Current Medications Generic Name Dose Route Start Last Admin Trade Name Freq PRN Reason Stop Dose Admin Alprazolam 0.25 mg 03/20/17 07:14 Xanax 0.25 Mg PO 04/19/17 07:13 Q8H PRN PRN ANXIETY Amlodipine Besylate 5 mg 03/20/17 10:00 03/20/17 09:42 Norvasc 5 Mg PO 04/19/17 09:59 5 mg DAILY ABHIJIT Administration Apixaban 2.5 mg 03/20/17 10:00 03/20/17 09:41 Eliquis PO 04/19/17 09:59 2.5 mg BID ABHIJIT Administration Aspirin 81 mg 03/20/17 10:00 03/20/17 09:41 Ecotrin 81 Mg PO 04/19/17 09:59 81 mg DAILY ABHIJIT Administration Carvedilol 25 mg 03/19/17 23:55 03/20/17 09:42 Coreg 12.5 Mg PO 04/18/17 23:54 25 mg BID ABHIJIT Administration Citalopram Hydrobromide 20 mg 03/20/17 10:00 03/20/17 09:42 Celexa 20 Mg PO 04/19/17 09:59 20 mg DAILY ABHIJIT Administration Furosemide 20 mg 03/20/17 07:30 03/20/17 09:44 Lasix 20 Mg PO 04/19/17 07:29 20 mg 0600 ABHIJIT Administration Furosemide 20 mg 03/20/17 12:00 03/20/17 12:54 Lasix 20 Mg PO 04/19/17 11:59 20 mg LUNCH ABHIJIT Administration Levothyroxine Sodium 112 mcg 03/20/17 10:00 03/20/17 09:42 Synthroid 112 Mcg PO 04/19/17 09:59 112 mcg DAILY ABHIJIT Administration Nitroglycerin 0.4 mg 03/20/17 07:21 Nitrostat 0.4 Mg Tablet SL 04/19/17 07:20 PRN PRN CHEST PAIN Potassium Chloride 20 meq 03/20/17 10:00 03/20/17 09:41 Klor Con 10 Meq PO 04/19/17 09:59 20 meq BID ABHIJIT Administration Simvastatin 20 mg 03/19/17 23:55 03/20/17 00:03 Zocor 20mg PO 04/18/17 23:54 20 mg HS ABHIJIT Administration Tramadol HCl 50 mg 03/20/17 07:14 Ultram 50 Mg PO 04/19/17 07:13 TIDPRN PRN PAIN Discontinued Medications Generic Name Dose Route Start Last Admin Trade Name Hitesh PRN Reason Stop Dose Admin Apixaban 2.5 mg 03/19/17 23:55 03/20/17 00:03 Eliquis PO 03/19/17 23:56 2.5 mg ONCE ONE Administration Intake & Output (Last 24 hours) 03/18/17 03/19/17 03/20/17 03/21/17 11:59 11:59 11:59 11:59 Intake Total 460 240 Output Total 150 300 Balance 310 -60 Weight 56.79 kg Laboratory Results (Last 24 hours) 03/19/17 03/19/17 19:00 19:00 WBC 11.8 H RBC 3.78 L Hgb 12.6 Hct 38.0 MCV 100.5 H MCH 33.3 H MCHC 33.2 RDW 14.9 H Plt Count 273 MPV 10.9 H Sodium 142 Potassium 4.5 Chloride 104 Carbon Dioxide 26.7 Anion Gap 15.3 H BUN 25 H Creatinine 1.94 H Estimated GFR 26 Glucose 311 H Calcium 8.5 Troponin I 0.042 NT-Pro-B Natriuret Pep 9222 H Orders (Last 24 hours) Category Date Time Status Bedrest TOLERATED Activity 03/19/17 20:20 Active Admission/Status Order ROUTINE Care 03/19/17 20:19 Active Code Status Order ROUTINE Care 03/19/17 20:17 Active Implement CHF Pathway ROUTINE Care 03/19/17 20:19 Active Miscellaneous Nursing Order ROUTINE Care 03/19/17 21:29 Active Telemetry Q4H Care 03/19/17 21:52 Active Weight,Daily 0600 Care 03/19/17 20:19 Active Nutritional Consult Diet 03/19/17 20:19 Active Regular Diet Diet 03/20/17 Lunch Active BMP Stat Lab 03/19/17 19:00 Completed CBC Stat Lab 03/19/17 19:00 Completed NT PRO BNP Stat Lab 03/19/17 19:00 Completed TROPONIN Stat Lab 03/19/17 19:00 Completed Alprazolam 0.25 mg [xanAX 0.25 MG] Med 03/20/17 07:14 Active 0.25 mg PO Q8H PRN PRN Amlodipine Besylate 5 mg [Norvasc 5 mg] Med 03/20/17 10:00 Active 5 mg PO DAILY Apixaban [Eliquis] Med 03/20/17 10:00 Active 2.5 mg PO BID Apixaban [Eliquis] Med 03/19/17 23:55 Discontinued 2.5 mg PO ONCE ONE Aspirin EC 81 mg [Ecotrin 81 mg] Med 03/20/17 10:00 Active 81 mg PO DAILY Carvedilol 12.5 mg [Coreg 12.5 mg] Med 03/19/17 23:55 Active 25 mg PO BID Citalopram Hydrobromide 20 mg* [ceLEXa 20 MG] Med 03/20/17 10:00 Active 20 mg PO DAILY Furosemide 20 mg [Lasix 20 mg] Med 03/20/17 07:30 Active 20 mg PO 0600 Furosemide 20 mg [Lasix 20 mg] Med 03/20/17 12:00 Active 20 mg PO LUNCH Levothyroxine Sodium 112 Mcg [Synthroid 112 Mcg] Med 03/20/17 10:00 Active 112 mcg PO DAILY Nitroglycerin 0.4 mg Tablet [Nitrostat 0.4 MG Tablet Med 03/20/17 07:21 Active ] 0.4 mg SL PRN PRN Potassium Chloride 10 Meq Tab* [Klor Con 10 MEQ] Med 03/20/17 10:00 Active 20 meq PO BID Simvastatin 20Mg [Zocor 20Mg] Med 03/19/17 23:55 Active 20 mg PO HS Tramadol HCl 50 mg [Ultram 50 mg] Med 03/20/17 07:14 Active 50 mg PO TIDPRN PRN BiPap/CPAP Assessment ROUTINE RT 03/19/17 20:24 Active EKG STAT RT 03/19/17 20:19 Completed Oxygen NASAL CANNULA 4 lpm RT 03/19/17 20:24 Active Pulse Oximetry OVERNIGHT RT 03/19/17 20:19 Active Patient was admitted with shortness of breath. Diagnosed with CHF exacerbation. Patient was put on CHF pathway, BIPAP, Patient condition improved and will transfer to [facility]. - Vitals & Intake/Output Vital Signs: Vital Signs Temperature 97.8 F 03/20/17 11:13 Pulse Rate 80 03/20/17 11:13 Respiratory Rate 20 03/20/17 11:13 Blood Pressure 120/56 03/20/17 11:13 O2 Sat by Pulse Oximetry 97 03/20/17 11:13 Oxygen-Last Documented O2 Percentage 5 Liters = 40% Intake & Output: Intake & Output 03/18/17 03/19/17 03/20/17 03/21/17 11:59 11:59 11:59 11:59 Intake Total 460 240 Output Total 150 300 Balance 310 -60 Weight 56.79 kg - Lab Result Diagrams: 03/19/17 19:00 03/19/17 19:00 Lab Results-Last 24 Hrs: Accuchecks Date 03/20/17 Time 11:07 Accucheck Value: 110 Lab Results-Last 24 Hours 03/19/17 03/19/17 Range/Units 19:00 19:00 WBC 11.8 H (4.0-10.5) K/mm3 RBC 3.78 L (4.1-5.4) M/mm3 Hgb 12.6 (12.0-16.0) gm/dl Hct 38.0 (35-47) % MCV 100.5 H (78-100) fl MCH 33.3 H (26-32) pg MCHC 33.2 (32-36) g/dl RDW 14.9 H (11.5-14.0) % Plt Count 273 (150-450) K/mm3 MPV 10.9 H (6-9.5) fl Sodium 142 (136-145) mEq/L Potassium 4.5 (3.5-5.1) mEq/L Chloride 104 (98-107) mEq/L Carbon Dioxide 26.7 (21-32) mEq/L Anion Gap 15.3 H (5-15) MEQ/L BUN 25 H (9-20) mg/dL Creatinine 1.94 H (0.55-1.30) mg/dl Estimated GFR 26 ML/MIN Glucose 311 H (70-110) MG/DL Calcium 8.5 (8.5-10.1) mg/dL Troponin I 0.042 (0.000-0.056) ng/ml NT-Pro-B Natriuret Pep 9222 H (0-450) pg/ml Micro Results-Entire Visit: Accuchecks Date 03/20/17 Time 11:07 Accucheck Value: 110 - Procedures and Test Procedures and Tests throughout Hospitalization: Therapy Orders & Screens 03/19/17 20:19 EKG STAT Comment: Diagnosis: CHF 03/19/17 20:24 BiPap/CPAP Assessment ROUTINE Comment: Oxygen NASAL CANNULA 4 lpm Comment: as per [facility] - Discharge Discharge Date: 03/20/17 Disposition: DC TO [facility] Condition: Stable Prescriptions: Continue Tramadol HCl 50 mg [Ultram 50 mg] 50 mg PO TIDPRN PRN PRN Reason: Pain Furosemide 20 mg [Lasix 20 mg] 20 mg PO DAILY Citalopram Hydrobromide 20 mg* [ceLEXa 20 MG] 20 mg PO DAILY Atorvastatin Calcium [Lipitor] 20 mg PO HS Aspirin 81 gm Chew [Baby Aspirin 81 mg Chew] 81 mg PO DAILY Apixaban [Eliquis] 2.5 mg PO BID Amlodipine Besylate 5 mg [Norvasc 5 mg] 5 mg PO DAILY Nitroglycerin 0.4 mg (Ed) [Nitrostat 0.4 MG (ED)] 0.4 mg SL UD PRN PRN Reason: Chest Pain Carvedilol 12.5 mg [Coreg 12.5 mg] 25 mg PO BID Levothyroxine Sodium 112 Mcg [Synthroid 112 Mcg] 112 mcg PO DAILY Furosemide 20 mg [Lasix 20 mg] 20 mg PO LUNCH Potassium Chloride 20 Meq [Klor-Con 20 MEQ] 20 meq PO BID Alprazolam 0.25 mg [xanAX 0.25 MG] 0.25 mg PO Q8H PRN PRN PRN Reason: Anxiety Follow up with: MARIYA CARR [Family Provider] - 1 Week SAUNDRA MARRERO [Primary Care Provider] - 1 Week
== END 2017-03-20 15:00 ==
LOC: MED SURG 19:12
PROVIDERS: ADMIT General Practice; ATTEND General Practice
DX: I48.2 Chronic atrial fibrillation (principal); I50.43 Acute on chronic combined systolic (congestive) and diastolic (congestive) heart failure; F41.9 Anxiety disorder, unspecified; I10 Essential (primary) hypertension; E03.9 Hypothyroidism, unspecified; J44.9 Chronic obstructive pulmonary disease, unspecified; Z79.899 Other long term (current) drug therapy; Z95.1 Presence of aortocoronary bypass graft; Z95.0 Presence of cardiac pacemaker
CPT/HCPCS: 36415; 80048; 82962; 83880; 84484; 85027; 93005; 93268; 94002; 94003; 94760; G0378; A9270-GY

== ENCOUNTER 2017-03-30 07:09 | Inpatient (IN) | payer MEDICARE ==
[2017-03-30] MEDS ORDERED: solu-MEDROL 125 MG IV ONE (07:13)
[2017-03-30] MEDS ORDERED: Lasix 40 MG/4 ML IV ONE (07:13)
[2017-03-30] MEDS ORDERED: DUONEB 0.5-3 MG/3 ml Neb IH ONE ×2 (07:13→07:57)
[2017-03-30] MEDS ORDERED: Pepcid 20 MG VIAL IV ONE ×2 (07:13→07:44)
[2017-03-30] MEDS ORDERED: NITRO-BID 2% UD PACKETS TOP ONE (07:13)
[2017-03-30] MEDS ORDERED: Sodium Chloride 0.9% 1000 ML 1,000 ML IV SCH (07:15)
[2017-03-30 07:19] LABS: A-aADO2 535; ALLEN TEST OK? YES; ARTERIAL BLD GAS O2 SATURATION 99.8 % (95-100); ARTERIAL BLOOD GAS BASE EXCESS 0.7 (-2.0-2.0); ARTERIAL BLOOD GAS FIO2 100 %; ARTERIAL BLOOD GAS PO2 124 mmHg (75-100); ARTERIAL BLOOD GAS pH 7.39 (7.35-7.45); Lactic Acid 2.9 (0.4-2.0)
--- NOTE | 2017-03-30 07:22 | ERPHSYRPT ---
- History of Present Illness Time Seen by Provider: 03/30/17 07:13 Source: patient, EMS, old records Exam Limitations: clinical condition (dyspnea) Physician History: progressive SOB x 2 days; hx copd and chf; placed on bipap and given lasix ; no improvement; sats 87% on bipap in NH; no fever; no productive cough; N without emesis; no other complaints Timing/Duration: yesterday, gradual onset, worse Activities at Onset: rest Severity of Dyspnea-Max: severe Severity of Dyspnea-Current: severe Possible Cause: frequent episodes Modifying Factors: Improves With: oxygen, other (bipap) Associated Symptoms: loss of appetite, ankle swelling, sweating Allergies/Adverse Reactions: OLIVIA Inhibitors Allergy (Intermediate, Verified 03/30/17 07:35) Home Medications: Alprazolam 0.25 mg [xanAX 0.25 MG] 0.25 mg PO TIDPRN 03/30/17 [History] Amlodipine Besylate 5 mg [Norvasc 5 mg] 5 mg PO DAILY 03/30/17 [History] Apixaban [Eliquis] 2.5 mg PO BID 03/30/17 [History] Aspirin 81 mg PO DAILY 03/30/17 [History] Atorvastatin Calcium [Lipitor 20MG Tablet] 20 mg PO HS 03/30/17 [History] Carvedilol 12.5 mg [Coreg 12.5 mg] 12.5 mg PO BID 03/30/17 [History] Citalopram Hydrobromide 20 mg* [ceLEXa 20 MG] 20 mg PO DAILY 03/30/17 [ History] Furosemide 20 mg [Lasix 20 mg] 20 mg PO DAILY 03/30/17 [History] Furosemide [Lasix] 10 mg PO UD 03/30/17 [History] Levothyroxine Sodium 125 mcg PO DAILY 03/30/17 [History] Hx Tetanus, Diphtheria Vaccination/Date Given: No Hx Influenza Vaccination/Date Given: Yes Hx Pneumococcal Vaccination/Date Given: Yes - Review of Systems Constitutional: Malaise Eyes: No Symptoms Ears, Nose, & Throat: No Symptoms Respiratory: Dyspnea, Wheezing Cardiac: Edema, Palpitations, Orthopnea Abdominal/Gastrointestinal: Nausea, Diarrhea, No Abdominal Pain, No Vomiting, No Hematemesis, No Melena Genitourinary Symptoms: No Dysuria, No Hematuria, No Flank Pain, No Menorrhagia Musculoskeletal: Arthralgias, No Neck Pain, No Fall, No Injury Skin: No Symptoms Neurological: No Symptoms Psychological: Anxiety, No Alcohol Abuse, No Drug Abuse, No Suicidal Ideations, No Homicidal Ideations Endocrine: No Symptoms Hematologic/Lymphatic: No Symptoms Immunological/Allergic: No Symptoms - Past Medical History Pertinent Past Medical History: Yes Neurological History: No Pertinent History ENT History: No Pertinent History Cardiac History: Arrhythmia, Congestive Heart Failure, Hypertension Respiratory History: COPD Endocrine Medical History: Hypothyroidism Musculoskeletal History: No Pertinent History GI Medical History: No Pertinent History History: No Pertinent History Psycho-Social History: No Pertinent History Female Reproductive Disorders: No Pertinent History - Past Surgical History Past Surgical History: Yes Neuro Surgical History: No Pertinent History Cardiac: CABG Respiratory: No Pertinent History Gastrointestinal: No Pertinent History Genitourinary: No Pertinent History Musculoskeletal: No Pertinent History Female Surgical History: No Pertinent History Other Surgical History: pacemaker - Social History Smoking Status: Former smoker Exposure to second hand smoke: No Alcohol Use: None Drug Use: none Patient Lives Alone: No Significant Family History: no pertinent family hx - Female History Hx Now: No - Nursing Vital Signs Nursing Vital Signs: Initial Vital Signs Temperature 98.8 F Temperature Source Rectal Pulse Rate 115 Respiratory Rate 27 Blood Pressure [] 155/100 Pain Intensity 0 - Physical Exam General Appearance: moderate distress (respiratory), alert, anxiety Eye Exam: PERRL/EOMI, eyes nml inspection, No photophobia Ears, Nose, Throat Exam: hearing grossly normal, normal ENT inspection, normal pharynx Neck Exam: normal inspection, non-tender, supple, full range of motion, JVD ( moderate) Respiratory Exam: respiratory distress (tachypnea), airway intact, diminished breath sounds, crackles/rales (few basilar), wheezing (few scattered), No chest tenderness, No rhonchi, No pleural rub Cardiovascular/Chest Exam: normal peripheral pulses, edema (trace), JVD ( moderate upright), tachycardia (104), irregular, No murmur Abdominal/Gastrointestinal Exam: soft, normal bowel sounds, No tenderness, No distention, No guarding, No pulsatile mass, No rebound, No organomegaly Rectal Exam: deferred Extremity Exam: non-tender, normal range of motion, normal inspection, normal capillary refill, no calf tenderness, pedal edema (trace) Peripheral Pulses Exam: carotid (R): 4+, carotid (L): 4+, femoral (R): 4+, femoral (L): 4+, dorsalis-pedis (R): 3+, dorsalis-pedis (L): 3+ Neurologic Exam: alert, oriented x 3, cooperative, tool analyst II-XII nml as tested, sensation nml, agitation Skin Exam: normal color, warm, dry, No rash, No petechiae Lymphatic Exam: No adenopathy SpO2 Interpretation: ABG ordered SpO2: 100 (rebreather - 100% will adjust after abg) Oxygen Delivery: BiPap (will be applied) - Course Nursing assessment & vital signs reviewed: Yes EKG Interpreted by Me: RATE (83), A-fib, Left [place] Deviation, Left Bundle Branch Block, Non-specific ST Changes Rhythm Strip: Rate (84), Atrial Fibrillation - Radiology Exams Chest X-ray Interpretation: Interpreted by me, Other (cardiomegaly/ s/p CABG; defib unit; changes of chf with effusions; ? infiltrates) Ordered Tests: Active Orders 24 hr Category Date Time Status Staff Scientist STAT Care 03/30/17 07:13 Active Catheter-[place] STAT Care 03/30/17 07:13 Active EKG-ER Only STAT Care 03/30/17 07:13 Active IV Insertion STAT Care 03/30/17 07:13 Active Pulse Oximetry (ED) STAT Care 03/30/17 07:13 Active Re-Check Vital Signs STAT Care 03/30/17 07:17 Completed Rectal Temperature STAT Care 03/30/17 07:13 Active CHEST 1 VIEW (PORTABLE) Stat Exams 03/30/17 07:14 Completed ABG [ARTERIAL BLOOD GASES] Urgent Lab 03/30/17 08:10 Completed ARTERIAL BLOOD GASES Stat Lab 03/30/17 07:15 Completed BLOOD CULTURE Stat Lab 03/30/17 08:04 Received CBC W DIFF Stat Lab 03/30/17 08:04 Completed CMP Stat Lab 03/30/17 08:04 Completed Lactic Acid Stat Lab 03/30/17 07:15 Completed MAGNESIUM Stat Lab 03/30/17 08:04 Completed NT PRO BNP Stat Lab 03/30/17 08:04 Completed PROTIME WITH INR Stat Lab 03/30/17 08:04 Completed TROPONIN Stat Lab 03/30/17 08:04 Completed UA W/RFX UR CULTURE Stat Lab 03/30/17 07:35 Completed BiPap/CPAP Assessment STAT RT 03/30/17 07:13 Active Peak Expiratory Flow Rate ONCE RT 03/30/17 07:13 Completed Respiratory Nebulizer STAT RT 03/30/17 07:16 Completed Medication Summary Generic Name Dose Route Start Last Admin Trade Name Freq PRN Reason Stop Dose Admin Sodium Chloride 1,000 mls @ 50 mls/hr 03/30/17 07:15 03/30/17 07:47 Sodium Chloride 0.9% 1000 Ml IV 04/29/17 07:14 50 mls/hr .Q20H ABHIJIT Administration Levofloxacin/Dextrose 500 mg in 100 mls @ 100 mls/hr 03/30/17 08:51 03/30/17 08:57 Levofloxacin 500mg/100ml D5w IV 03/30/17 09:50 100 mls/hr STAT ONE Administration Discontinued Medications Generic Name Dose Route Start Last Admin Trade Name Freq PRN Reason Stop Dose Admin Albuterol/Ipratropium 3 ml 03/30/17 07:13 03/30/17 08:01 Duoneb 0.5-3 Mg/3 Ml Neb IH 03/30/17 07:14 3 ml STAT ONE Administration Albuterol/Ipratropium Confirm 03/30/17 07:57 Duoneb 0.5-3 Mg/3 Ml Neb Administered 03/30/17 07:58 Dose 3 ml IH .STK-MED ONE Famotidine 20 mg 03/30/17 07:13 03/30/17 07:50 Pepcid 20 Mg Vial IV 03/30/17 07:14 20 mg STAT ONE Administration Famotidine Confirm 03/30/17 07:44 Pepcid 20 Mg Vial Administered 03/30/17 07:45 Dose 20 mg IV .STK-MED ONE Furosemide 40 mg 03/30/17 07:13 03/30/17 07:49 Lasix 40 Mg/4 Ml IV 03/30/17 07:14 40 mg STAT ONE Administration Furosemide Confirm 03/30/17 07:44 Lasix 40 Mg/4 Ml Administered 03/30/17 07:45 Dose 40 mg .ROUTE .STK-MED ONE Metronidazole 500 mg in 100 mls @ 200 mls/hr 03/30/17 08:52 Flagyl 500 Mg Ivpb IV 03/30/17 09:21 STAT STA Levofloxacin/Dextrose Confirm 03/30/17 08:56 Levofloxacin 500mg/100ml D5w Administered 03/30/17 08:57 Dose 500 mg in 100 mls @ ud IV .STK-MED ONE Lorazepam 1 mg 03/30/17 07:28 03/30/17 07:50 Ativan 2 Mg/1 Ml Vial IV 03/30/17 07:29 1 mg STAT ONE Administration Lorazepam Confirm 03/30/17 07:46 Ativan 2 Mg/1 Ml Vial Administered 03/30/17 07:47 Dose 2 mg .ROUTE .STK-MED ONE Methylprednisolone Sodium Succinate 125 mg 03/30/17 07:13 03/30/17 07:49 Solu-Medrol 125 Mg IV 03/30/17 07:14 125 mg STAT ONE Administration Methylprednisolone Sodium Succinate Confirm 03/30/17 07:44 Solu-Medrol 125 Mg Administered 03/30/17 07:45 Dose 125 mg .ROUTE .STK-MED ONE Nitroglycerin 1 gm 03/30/17 07:13 03/30/17 07:49 Nitro-Bid 2% Ud Packets TOP 03/30/17 07:14 1 gm STAT ONE Administration Nitroglycerin Confirm 03/30/17 07:44 Nitro-Bid 2% Ud Packets Administered 03/30/17 07:45 Dose 1 gm .ROUTE .STK-MED ONE Lab/Rad Data: Laboratory Result Diagrams 03/30/17 08:04 03/30/17 08:04 Laboratory Results 03/30/17 03/30/17 03/30/17 Range/Units 08:10 08:04 08:04 WBC (4.0-10.5) K/mm3 RBC (4.1-5.4) M/mm3 Hgb (12.0-16.0) gm/dl Hct (35-47) % MCV (78-100) fl MCH (26-32) pg MCHC (32-36) g/dl RDW (11.5-14.0) % Plt Count (150-450) K/mm3 MPV (6-9.5) fl Gran % (36.0-66.0) % Lymphocytes % (24.0-44.0) % Monocytes % (0.0-12.0) % Eosinophils % (0.00-5.0) % Basophils % (0.0-0.4) % Basophils # (0-0.4) INR 1.59 (0.8-3.0) Puncture Site RIGHT RADIAL pCO2 42 (35-45) mmHg pO2 124 H* (75-100) mmHg Base Excess 1.0 (-2.0-2.0) O2 Saturation 96.0 (94-100) g/dF ABG pH 7.40 (7.35-7.45) ABG HCO3 26.0 (22-28) ABG O2 Sat (Measured) 99.2 (95-100) % Chris Test YES A-a Gradient 180 a/A Ratio 0.41 Hemoglobin 13.9 Carboxyhemoglobin 2.1 (0.0-6.9) % THgb Methemoglobin 1.2 L (1.4-1.5) % Potassium 3.7 (3.5-5.1) Temperature 37.0 C POC O2 Flow Rate 50 % Sodium (136-145) mEq/L Chloride (98-107) mEq/L Carbon Dioxide (21-32) mEq/L Anion Gap (5-15) MEQ/L BUN (9-20) mg/dL Creatinine (0.55-1.30) mg/dl Estimated GFR ML/MIN Glucose (70-110) MG/DL Lactic Acid (0.4-2.0) Calcium (8.5-10.1) mg/dL Magnesium (1.8-2.4) mg/dL Total Bilirubin (0.2-1.0) mg/dL AST (15-37) U/L ALT (12-78) U/L Alkaline Phosphatase (46-116) U/L Troponin I (0.000-0.056) ng/ml NT-Pro-B Natriuret Pep (0-450) pg/ml Serum Total Protein (6.4-8.2) gm/dL Albumin (3.4-5.0) g/dL Ur Collection Type Urine Color (YELLOW) Urine Appearance (CLEAR) Urine pH (5-6) Ur Specific [place] (1.005-1.025) Urine Protein (Negative) Urine Ketones (NEGATIVE) Urine Blood (0-5) [place]/ul Urine Nitrite (NEGATIVE) Urine Bilirubin (NEGATIVE) Urine Urobilinogen (0-1) mg/dL Ur Leukocyte Esterase (NEGATIVE) Urine Glucose (NEGATIVE) mg/dL Influenza Type A Ag NEGATIVE (NEGATIVE) Influenza Type B Ag NEGATIVE (NEGATIVE) RSV (PCR) NEGATIVE (Negative) Specimen Received 03/30/17 03/30/17 03/30/17 Range/Units 08:04 08:04 07:35 WBC 9.5 (4.0-10.5) K/mm3 RBC 4.06 L (4.1-5.4) M/mm3 Hgb 13.2 (12.0-16.0) gm/dl Hct 40.5 (35-47) % MCV 99.8 (78-100) fl MCH 32.5 H (26-32) pg MCHC 32.6 (32-36) g/dl RDW 15.5 H (11.5-14.0) % Plt Count 221 (150-450) K/mm3 MPV 10.6 H (6-9.5) fl Gran % 64.7 (36.0-66.0) % Lymphocytes % 21.5 L (24.0-44.0) % Monocytes % 12.1 H (0.0-12.0) % Eosinophils % 1.3 (0.00-5.0) % Basophils % 0.4 (0.0-0.4) % Basophils # 0.04 (0-0.4) INR (0.8-3.0) Puncture Site pCO2 (35-45) mmHg pO2 (75-100) mmHg Base Excess (-2.0-2.0) O2 Saturation (94-100) g/dF ABG pH (7.35-7.45) ABG HCO3 (22-28) ABG O2 Sat (Measured) (95-100) % Chris Test A-a Gradient a/A Ratio Hemoglobin Carboxyhemoglobin (0.0-6.9) % THgb Methemoglobin (1.4-1.5) % Potassium 3.9 (3.5-5.1) Temperature C POC O2 Flow Rate % Sodium 143 (136-145) mEq/L Chloride 103 (98-107) mEq/L Carbon Dioxide 25.0 (21-32) mEq/L Anion Gap 18.7 H (5-15) MEQ/L BUN 32 H (9-20) mg/dL Creatinine 1.58 H (0.55-1.30) mg/dl Estimated GFR 33 ML/MIN Glucose 141 H (70-110) MG/DL Lactic Acid (0.4-2.0) Calcium 9.7 (8.5-10.1) mg/dL Magnesium 1.8 (1.8-2.4) mg/dL Total Bilirubin 2.00 H (0.2-1.0) mg/dL AST 37 (15-37) U/L ALT 41 (12-78) U/L Alkaline Phosphatase 105 (46-116) U/L Troponin I 0.056 (0.000-0.056) ng/ml NT-Pro-B Natriuret Pep 40097 H (0-450) pg/ml Serum Total Protein 6.4 (6.4-8.2) gm/dL Albumin 3.3 L (3.4-5.0) g/dL Ur Collection Type CLEAN CATCH Urine Color YELLOW (YELLOW) Urine Appearance CLEAR (CLEAR) Urine pH 5.0 (5-6) Ur Specific [place] 1.015 (1.005-1.025) Urine Protein NEGATIVE (Negative) Urine Ketones NEGATIVE (NEGATIVE) Urine Blood NEGATIVE (0-5) [place]/ul Urine Nitrite NEGATIVE (NEGATIVE) Urine Bilirubin NEGATIVE (NEGATIVE) Urine Urobilinogen NORMAL (0-1) mg/dL Ur Leukocyte Esterase NEGATIVE (NEGATIVE) Urine Glucose NEGATIVE (NEGATIVE) mg/dL Influenza Type A Ag (NEGATIVE) Influenza Type B Ag (NEGATIVE) RSV (PCR) (Negative) Specimen Received 03/30/17 0709 03/30/17 Range/Units 07:15 WBC (4.0-10.5) K/mm3 RBC (4.1-5.4) M/mm3 Hgb (12.0-16.0) gm/dl Hct (35-47) % MCV (78-100) fl MCH (26-32) pg MCHC (32-36) g/dl RDW (11.5-14.0) % Plt Count (150-450) K/mm3 MPV (6-9.5) fl Gran % (36.0-66.0) % Lymphocytes % (24.0-44.0) % Monocytes % (0.0-12.0) % Eosinophils % (0.00-5.0) % Basophils % (0.0-0.4) % Basophils # (0-0.4) INR (0.8-3.0) Puncture Site LEFT RADIAL pCO2 43 (35-45) mmHg pO2 124 H* (75-100) mmHg Base Excess 0.7 (-2.0-2.0) O2 Saturation 96.4 (94-100) g/dF ABG pH 7.39 (7.35-7.45) ABG HCO3 26.0 (22-28) ABG O2 Sat (Measured) 99.8 (95-100) % Chris Test YES A-a Gradient 535 a/A Ratio 0.19 Hemoglobin 14.1 Carboxyhemoglobin 2.4 (0.0-6.9) % THgb Methemoglobin 0.9 L (1.4-1.5) % Potassium 4.3 (3.5-5.1) Temperature 37.0 C POC O2 Flow Rate 100 % Sodium (136-145) mEq/L Chloride (98-107) mEq/L Carbon Dioxide (21-32) mEq/L Anion Gap (5-15) MEQ/L BUN (9-20) mg/dL Creatinine (0.55-1.30) mg/dl Estimated GFR ML/MIN Glucose (70-110) MG/DL Lactic Acid 2.9 H (0.4-2.0) Calcium (8.5-10.1) mg/dL Magnesium (1.8-2.4) mg/dL Total Bilirubin (0.2-1.0) mg/dL AST (15-37) U/L ALT (12-78) U/L Alkaline Phosphatase (46-116) U/L Troponin I (0.000-0.056) ng/ml NT-Pro-B Natriuret Pep (0-450) pg/ml Serum Total Protein (6.4-8.2) gm/dL Albumin (3.4-5.0) g/dL Ur Collection Type Urine Color (YELLOW) Urine Appearance (CLEAR) Urine pH (5-6) Ur Specific [place] (1.005-1.025) Urine Protein (Negative) Urine Ketones (NEGATIVE) Urine Blood (0-5) [place]/ul Urine Nitrite (NEGATIVE) Urine Bilirubin (NEGATIVE) Urine Urobilinogen (0-1) mg/dL Ur Leukocyte Esterase (NEGATIVE) Urine Glucose (NEGATIVE) mg/dL Influenza Type A Ag (NEGATIVE) Influenza Type B Ag (NEGATIVE) RSV (PCR) (Negative) Specimen Received reviewed - Progress Progress: improved (after placed on bipap), re-examined (after meds, xr and bipap) Air Movement: fair Progress Note: 03/30/17 07:27 willl get ABG and place on bipap; ekg A Fib with chronic changes; cxr pending; clinically in chf; will give diuretic and NTG, monitor and recheck; patient is DNR 03/30/17 07:48 rechecked after meds and bipap; patient feeling better; VS improved; moving air better; Breath sounds improved; lab and cxr pending; abg ok; will monitor and recheck 03/30/17 07:53 CXR show CM with CHF and possible infiltrates;EKG with chronic AF and changes non-specific with LBBB; rechecked patient and much improved clinically on bipap ; labs pending 03/30/17 08:02 u/a cath clear and negative; patient continues to improve 03/30/17 08:34 patietn continues to do well; repeat ABG on bipap all ok except pO2 remains hi and will reduce to 31% fio2 and recheck; CBC wnl; PT 18.1 and INR 1.59 03/30/17 08:46 lytes ok; lactate elevated at 2.9 but in CHF and Pulmonary edema so have to cautious with fluids; will give small boluses and moinitor and start on ATBS; will notify LMD for disposition pBNP elevated at 18,736, Troponin upper limit normal; will repeat 03/30/17 08:59 rechecked after 100 cc bolus IV saline; BP improved; pulse decreased - less tachycardia; resting quietly; tolerating bipap ok; will repeat bolus and recheck ; DR Gab dodd 03/30/17 09:16 recheck and continues as before; slight tachycardia; sats 94% on bipap; ATBs ordered; fluid bolus x 2; resp panel negative; maintaining BP ok; repeat lactate pending 03/30/17 09:23 Dr Llamas consulted and will admit. 03/30/17 09:24 no family has arrived Blood Culture(s) Obtained: Yes Antibiotics given: Yes Discussed with : Gab (consulted for disposition and will accept for admission) Will see patient in: hospital (observation) Counseled pt/family regarding: lab results, diagnosis, need for follow-up, rad results - Departure Time of Disposition: 09:24 Departure Disposition: Observation Clinical Impression: Acute respiratory distress, CHF (congestive heart failure), Atrial fibrillation , Pulmonary edema, Infiltrate noted on imaging study, Diarrhea, Elevated serum lactate dehydrogenase, Sepsis Condition: Serious Critical Care Time: Yes Critical Care Time(excluding separately billable procedures): 30-74 minutes Referrals: MITCH LLAMAS MD [Primary Care Provider] - Instructions: Heart Failure
[2017-03-30] MEDS ORDERED: Ativan 2 MG/1 ML VIAL IV ONE (07:28)
[2017-03-30] MEDS ORDERED: NITRO-BID 2% UD PACKETS ONE (07:44)
[2017-03-30] MEDS ORDERED: Lasix 40 MG/4 ML ONE (07:44)
[2017-03-30] MEDS ORDERED: solu-MEDROL 125 MG ONE (07:44)
[2017-03-30] MEDS ORDERED: Sodium Chloride 0.9% 1000 ML 1,000 ML ONE (07:46)
[2017-03-30] MEDS ORDERED: Ativan 2 MG/1 ML VIAL ONE (07:46)
[2017-03-30 07:56] LABS: ADD URINE CULTURE? NO (NO); Bilirubin NEGATIVE (NEGATIVE); Blood NEGATIVE Ery/ul (0-5); COMPLETE URINE MICROSCOPIC? NO; Collection Type CLEAN CATCH; Glucose NEGATIVE (NEGATIVE); Leukocyte Esterase NEGATIVE (NEGATIVE)
[2017-03-30 08:07] LABS: BASOPHIL % 0.4 % (0.0-0.4); Eosinophil % 1.3 % (0.00-5.0); Granulocytes % 64.7 % (36.0-66.0); Lymphocytes % 21.5 % (24.0-44.0); Mean Cell Volume 99.8 fl (78-100); Mean Corpuscular Hemoglobin 32.5 pg (26-32); Mean Platelet Volume 10.6 fl (6-9.5); Monocytes % 12.1 % (0.0-12.0); Platelet Count 221 K/mm3 (150-450); Red Blood Count 4.06 M/mm3 (4.1-5.4); Red Cell Distribution Width 15.5 % (11.5-14.0); White Blood Count 9.5 K/mm3 (4.0-10.5)
[2017-03-30 08:15] LABS: A-aADO2 180; ALLEN TEST OK? YES; ARTERIAL BLD GAS O2 SATURATION 99.2 % (95-100); ARTERIAL BLOOD GAS FIO2 50 %; ARTERIAL BLOOD GAS PO2 124 mmHg (75-100)
[2017-03-30 08:23] LABS: INR 1.59 (0.8-3.0); PROTIME 18.1 SECONDS (9.95-12.35)
--- NOTE | 2017-03-30 08:36 | XRAY ---
Indication: Short of breath. Comparison: March 05, 2017. Portable chest unchanged again demonstrating previous CABG surgery, left-sided AICD, borderline cardiomegaly, pulmonary edema, and bibasilar infiltrates/atelectasis/effusions concerning for cardiac decompensation. Superimposed pneumonia not excluded.
[2017-03-30 08:40] LABS: ALBUMIN 3.3 g/dL (3.4-5.0); ANION GAP 18.7 MEQ/L (5-15); MAGNESIUM 1.8 mg/dL (1.8-2.4); Potassium 3.9 mEq/L (3.5-5.1); TROPONIN 0.056 ng/ml (0.000-0.056); Total Protein 6.4 gm/dL (6.4-8.2)
[2017-03-30] MEDS ORDERED: Levofloxacin 500MG/100ML D5W 500 MG/100 ML BAG IV ONE ×2 (08:51→08:56)
[2017-03-30] MEDS ORDERED: FLAGYL 500 MG IVPB 500 MG/100 ML BAG IV STA (08:52)
[2017-03-30] MEDS ORDERED: FLAGYL 500 MG IVPB 500 MG/100 ML BAG IV ONE (09:50)
[2017-03-30] MEDS ORDERED: DUONEB 0.5-3 MG/3 ml Neb IH PRN (11:12)
[2017-03-30] MEDS ORDERED: Nitrostat 0.4 MG Tablet SL PRN (13:37)
[2017-03-30] MEDS ORDERED: ULTRAM 50 MG PO PRN (13:37)
[2017-03-30] MEDS: SYNTHROID 125 MCG PO SCH (14:35)
[2017-03-30] MEDS: ECOTRIN 81 MG PO SCH (14:35)
[2017-03-30] MEDS: COREG 12.5 MG PO SCH ×2 (14:35→20:47)
[2017-03-30] MEDS: NORVASC 5 MG PO SCH (14:36)
[2017-03-30] MEDS: ELIQUIS PO SCH ×2 (14:36→20:45)
[2017-03-30] MEDS: ceLEXa 20 MG PO SCH (14:36)
[2017-03-30] MEDS: xanAX 0.25 MG PO PRN (20:45)
[2017-03-30] MEDS: ZOCOR 20MG PO SCH (20:47)
[2017-03-30] MEDS ORDERED: NON-FORMULARY ITEM (Atorvastatin Calcium 20 MG) PO SCH (22:00)
[2017-03-31] MEDS: LASIX 20 MG PO SCH ×2 (06:45→12:31)
[2017-03-31] MEDS: NORVASC 5 MG PO SCH (09:36)
[2017-03-31] MEDS: COREG 12.5 MG PO SCH ×2 (09:36→21:15)
[2017-03-31] MEDS: ECOTRIN 81 MG PO SCH (09:36)
[2017-03-31] MEDS: ceLEXa 20 MG PO SCH (09:36)
[2017-03-31] MEDS: ELIQUIS PO SCH ×2 (09:36→21:16)
[2017-03-31] MEDS: SYNTHROID 125 MCG PO SCH (09:36)
[2017-03-31] MEDS: xanAX 0.25 MG PO PRN ×2 (09:40→21:36)
[2017-03-31] MEDS ORDERED: NON-FORMULARY ITEM (Aspirin [Aspirin] 81 MG) PO SCH (10:00)
--- NOTE | 2017-03-31 13:30 | PCM.NOTE ---
Date and Time: 03/31/17 1329 Subjective Assessment: doing better - Review of Systems Constitutional: No Fever, No Chills Eyes: No Symptoms Ears, Nose, & Throat: No Symptoms Respiratory: No Cough, No Short Of Breath Cardiac: No Chest Pain, No Edema, No Syncope Abdominal/Gastrointestinal: No Abdominal Pain, No Nausea, No Vomiting, No Diarrhea Genitourinary Symptoms: No Dysuria Musculoskeletal: No Back Pain, No Neck Pain Skin: No Rash Neurological: No Dizziness, No Focal Weakness, No Sensory Changes Psychological: No Symptoms Endocrine: No Symptoms Hematologic/Lymphatic: No Symptoms Immunological/Allergic: No Symptoms Objective Exam General Appearance: no apparent distress, alert Neurologic Exam: alert, oriented x 3, cooperative, normal mood/affect, nml cerebellar function, sensation nml, No motor deficits Skin Exam: normal color, warm, dry Eye Exam: PERRL, EOMI, eyes nml inspection Ears, Nose, Throat Exam: normal ENT inspection, pharynx normal, moist mucous membranes Neck Exam: normal inspection, non-tender, supple, full range of motion Respiratory Exam: normal breath sounds, lungs clear, No respiratory distress Cardiovascular Exam: regular rate/rhythm, normal heart sounds Gastrointestinal/Abdomen Exam: soft, No tenderness, No mass Extremity Exam: normal inspection, normal range of motion Back Exam: normal inspection, normal range of motion, No CVA tenderness, No vertebral tenderness Pelvic Exam: deferred Rectal Exam: deferred OBJECTIVE DATA Vital Signs: Vital Signs - 24 hr Temp Pulse Resp BP Pulse Ox 03/31/17 11:49 97.6 F 84 18 134/69 95 03/31/17 07:20 97.5 F 87 18 136/83 93 L 03/31/17 07:08 71 18 93 L 03/31/17 03:57 97.9 F 85 17 126/70 93 L 03/30/17 23:57 97.9 F 91 H 15 134/64 94 L 03/30/17 20:00 105 H 17 96 03/30/17 19:57 97.2 F 108 H 21 144/71 99 03/30/17 16:00 97.4 F 123 H 17 133/80 98 Oxygen-Last 24 hours O2 Percentage 50% O2 Percentage 50% Pain Assessment - Last Documented Pain Scale Used 0-10 Pain Scale Intake and Output: Intake & Output 03/29/17 03/30/17 03/31/1704/01/17 11:59 11:59 11:59 11:59 Intake Total 1145 Output Total 1200 Balance -55 Weight 58.559 kg 59.103 kg Assessment/Plan (1) CHF (congestive heart failure) Current Visit: Yes Status: Acute Qualifiers: Congestive heart failure type: unspecified congestive heart failure type Congestive heart failure chronicity: acute on chronic Qualified Code(s): I50.9 - Heart failure, unspecified Code(s): I50.9 - HEART FAILURE, UNSPECIFIED (2) Pulmonary edema Current Visit: Yes Status: Resolved Qualifiers: Chronicity: acute Qualified Code(s): J81.0 - Acute pulmonary edema Code(s): J81.1 - CHRONIC PULMONARY EDEMA (3) Atrial fibrillation Current Visit: Yes Status: Chronic Qualifiers: Atrial fibrillation type: chronic Code(s): I48.91 - UNSPECIFIED ATRIAL FIBRILLATION
[2017-03-31] MEDS: Sodium Chloride 0.9% 10 ML FLUSH Syringe IV SCH (21:16)
[2017-03-31] MEDS: ZOCOR 20MG PO SCH (21:16)
[2017-04-01] MEDS: LASIX 20 MG PO SCH ×2 (05:20→11:50)
[2017-04-01] MEDS: Sodium Chloride 0.9% 10 ML FLUSH Syringe IV SCH ×2 (05:23→11:51)
--- NOTE | 2017-04-01 06:01 | PCM.NOTE ---
Date and Time: 04/01/17 0600 Subjective Assessment: doing better, - Review of Systems Constitutional: No Fever, No Chills Eyes: No Symptoms Ears, Nose, & Throat: No Symptoms Respiratory: Orthopnea, Short Of Breath, No Cough Cardiac: No Chest Pain, No Edema, No Syncope Abdominal/Gastrointestinal: No Abdominal Pain, No Nausea, No Vomiting, No Diarrhea Genitourinary Symptoms: No Dysuria Musculoskeletal: No Back Pain, No Neck Pain Skin: No Rash Neurological: No Dizziness, No Focal Weakness, No Sensory Changes Psychological: No Symptoms Endocrine: No Symptoms Hematologic/Lymphatic: No Symptoms Immunological/Allergic: No Symptoms Objective Exam General Appearance: no apparent distress, alert Neurologic Exam: alert, oriented x 3, cooperative, normal mood/affect, nml cerebellar function, sensation nml, No motor deficits Skin Exam: normal color, warm, dry Eye Exam: PERRL, EOMI, eyes nml inspection Ears, Nose, Throat Exam: normal ENT inspection, pharynx normal, moist mucous membranes Neck Exam: normal inspection, non-tender, supple, full range of motion Respiratory Exam: diminished breath sounds, No respiratory distress Cardiovascular Exam: gallop, tachycardia, capillary refill >3 sec Gastrointestinal/Abdomen Exam: soft, No tenderness, No mass Extremity Exam: normal inspection, normal range of motion Back Exam: normal inspection, normal range of motion, No CVA tenderness, No vertebral tenderness Pelvic Exam: deferred Rectal Exam: deferred OBJECTIVE DATA Vital Signs: Vital Signs - 24 hr Temp Pulse Resp BP Pulse Ox 04/01/17 04:08 97.8 F 75 14 126/73 94 L 04/01/17 00:00 97.7 F 72 15 121/57 93 L 03/31/17 20:02 96 03/31/17 19:56 76 22 96 03/31/17 19:55 97.4 F 75 24 130/62 95 03/31/17 16:00 97 F 76 18 110/57 96 03/31/17 11:49 97.6 F 84 18 134/69 95 03/31/17 07:20 97.5 F 87 18 136/83 93 L 03/31/17 07:08 71 18 93 L Oxygen-Last 24 hours O2 Percentage 50% O2 Percentage 50% O2 Percentage 50% O2 Percentage 5 Liters = 40% O2 Percentage 5 Liters = 40% Pain Assessment - Last Documented Pain Scale Used FLACC Intake and Output: Intake & Output 03/29/17 03/30/17 03/31/17 04/01/17 11:59 11:59 11:59 11:59 Intake Total 1145 1230 Output Total 1200 1900 Balance -55 -670 Weight 58.559 kg 59.103 kg Assessment/Plan (1) CHF (congestive heart failure) Current Visit: Yes Status: Acute Qualifiers: Congestive heart failure type: unspecified congestive heart failure type Congestive heart failure chronicity: acute on chronic Qualified Code(s): I50.9 - Heart failure, unspecified Code(s): I50.9 - HEART FAILURE, UNSPECIFIED (2) Pulmonary edema Current Visit: Yes Status: Resolved Qualifiers: Chronicity: acute Qualified Code(s): J81.0 - Acute pulmonary edema Code(s): J81.1 - CHRONIC PULMONARY EDEMA (3) Atrial fibrillation Current Visit: Yes Status: Chronic Qualifiers: Atrial fibrillation type: chronic Code(s): I48.91 - UNSPECIFIED ATRIAL FIBRILLATION
[2017-04-01] MEDS: ceLEXa 20 MG PO SCH (10:22)
[2017-04-01] MEDS: xanAX 0.25 MG PO PRN (10:22)
[2017-04-01] MEDS: ECOTRIN 81 MG PO SCH (10:22)
[2017-04-01] MEDS: SYNTHROID 125 MCG PO SCH (10:22)
[2017-04-01] MEDS: COREG 12.5 MG PO SCH (10:23)
[2017-04-01] MEDS: NORVASC 5 MG PO SCH (10:23)
[2017-04-01] MEDS: ELIQUIS PO SCH (10:23)
[2017-04-01 11:26] VITALS: BP 123/67; PULSE 73; O2SAT 98
== END 2017-04-01 13:15 | DRG 292 ==
LOC: ED 07:09 → MED SURG 09:55
PROVIDERS: ADMIT General Practice; ATTEND General Practice
DX: I50.9 Heart failure, unspecified (principal); J81.1 Chronic pulmonary edema; J81.0 Acute pulmonary edema; I48.91 Unspecified atrial fibrillation
CPT/HCPCS: 36000; 36415; 36600; 51702; 71010; 80053; 81002; 82375; 82803; 83605; 83735; 83880; 84484; 85025; 85610; 87040; 87631; 93005; 93041; 94002; 94003; 94640; 94760; 96360; 96361; 96365; 96366; 96374; 96375; 99285; J1940; J1956; J2060; J2930; A9270-GY

== ENCOUNTER 2017-06-08 17:23 | Observation (INO) | payer MEDICARE ==
[2017-06-08 17:48] LABS: VBG BASE EXCESS 14.1 (-2.0-2.0); VBG CARBOXYHEMOGLOBIN 2.4 % T HGB (0.0-6.9); VBG HCO3- 39.6 meq/L (22-28); VBG HEMOGLOBIN 12.4; VBG O2 SATURATION 61.3 (95-100); VBG POTASSIUM 4.6 (3.5-5.1); VBG pH 7.49 (7.32-7.42)
[2017-06-08 17:54] LABS: BASOPHIL % 0.4 % (0.0-0.4); Eosinophil % 3.5 % (0.00-5.0); Granulocytes % 49.5 % (36.0-66.0); Mean Cell Volume 95.1 fl (78-100); Mean Corpuscular Hemoglobin 30.2 pg (26-32); Mean Platelet Volume 9.9 fl (6-9.5); Monocytes % 9.6 % (0.0-12.0); Platelet Count 254 K/mm3 (150-450); Red Blood Count 4.07 M/mm3 (4.1-5.4); Red Cell Distribution Width 15.2 % (11.5-14.0); White Blood Count 8.3 K/mm3 (4.0-10.5)
[2017-06-08 18:08] LABS: INR 1.77 (0.8-3.0); PROTIME 19.8 SECONDS (9.95-12.35)
[2017-06-08 18:10] LABS: PTT 31.9 SECONDS (25.3-37.0)
[2017-06-08] MEDS ORDERED: DUONEB 0.5-3 MG/3 ml Neb IH ONE ×2 (18:18→18:30)
--- NOTE | 2017-06-08 18:18 | ERPHSYRPT ---
- History of Present Illness Time Seen by Provider: 06/08/17 17:32 Source: patient, EMS, shelter records Patient Subjective Stated Complaint: Pt states "I have been short of breath for 4 days." Triage Nursing Assessment: Pt alert and oriented X 3, skin pwd pt able to speak in full sentences. tachypneic. Physician History: CC: short of breath for 4 days Hx: 82 y/o patient of [facility]. She has shortness of breath for 4 days. She has no chest pain. No fever. No cough. She uses oxygen and bipap off and on. Feels better since EMS placed her on oxygen N/C. She uses nebs sometimes. Timing/Duration: day(s) (4) Severity of Dyspnea-Max: moderate Severity of Dyspnea-Current: mild Allergies/Adverse Reactions: OLIVIA Inhibitors Allergy (Intermediate, Verified 03/30/17 07:35) Home Medications: Alprazolam 0.25 mg [xanAX 0.25 MG] 0.25 mg PO Q8HPRN PRN 03/30/17 [History ] Amlodipine Besylate 5 mg [Norvasc 5 mg] 5 mg PO DAILY 03/30/17 [History] Apixaban [Eliquis] 2.5 mg PO BID 03/30/17 [History] Aspirin 81 mg PO DAILY 03/30/17 [History] Atorvastatin Calcium [Lipitor 20MG Tablet] 20 mg PO HS 03/30/17 [History] Carvedilol 12.5 mg [Coreg 12.5 mg] 12.5 mg PO BID 03/30/17 [History] Furosemide 20 mg [Lasix 20 mg] 20 mg PO DAILY 03/30/17 [History] Furosemide [Lasix] 40 mg PO DAILY 03/30/17 [History] Levothyroxine Sodium 125 mcg PO DAILY 03/30/17 [History] Nitroglycerin 0.4 mg Tablet [Nitrostat 0.4 MG Tablet] 0.4 mg SL Q5MIN PRN MR X 3 PRN 03/30/17 [History] Tramadol HCl 50 mg [Ultram 50 mg] 50 mg PO Q8HPRN PRN 03/30/17 [History] Hx Tetanus, Diphtheria Vaccination/Date Given: No Hx Influenza Vaccination/Date Given: No Hx Pneumococcal Vaccination/Date Given: No Immunizations Up to Date: Yes - Review of Systems Constitutional: No Fever, No Chills Eyes: No Symptoms Ears, Nose, & Throat: No Symptoms Respiratory: Dyspnea, No Cough Cardiac: No Chest Pain Abdominal/Gastrointestinal: No Abdominal Pain, No Nausea, No Vomiting Skin: No Rash Neurological: No Headache All Other Systems: Reviewed and Negative - Past Medical History Pertinent Past Medical History: Yes Neurological History: No Pertinent History ENT History: Cataracts Cardiac History: Congestive Heart Failure, Hypertension, Myocardial Infarction ( [place]) Respiratory History: CHF, COPD Endocrine Medical History: No Pertinent History Musculoskeletal History: Arthritis GI Medical History: No Pertinent History History: No Pertinent History Psycho-Social History: Anxiety, Depression Female Reproductive Disorders: No Pertinent History - Past Surgical History Past Surgical History: Yes Neuro Surgical History: No Pertinent History Cardiac: CABG, Internal Defibrillator, Pacemaker Respiratory: No Pertinent History Gastrointestinal: No Pertinent History Genitourinary: No Pertinent History Musculoskeletal: No Pertinent History Female Surgical History: No Pertinent History Other Surgical History: pt no longer has defibrillator. does have pacemaker - Social History Smoking Status: Former smoker Exposure to second hand smoke: No Alcohol Use: None Drug Use: none Patient Lives Alone: No Significant Family History: no pertinent family hx - Female History Hx Last Menstrual Period: menopause Hx Now: No - Nursing Vital Signs Nursing Vital Signs: Initial Vital Signs Temperature 97.9 F 06/08/17 17:24 Pulse Rate 122 H 06/08/17 17:24 Respiratory Rate 24 06/08/17 17:24 Blood Pressure 137/78 06/08/17 17:24 O2 Sat by Pulse Oximetry 89 L 06/08/17 17:24 Pain Scale Pain Intensity 0 - Physical Exam General Appearance: alert, other (dry mucous membranes) Eye Exam: PERRL/EOMI Neck Exam: supple Respiratory Exam: normal breath sounds Cardiovascular/Chest Exam: irregular Abdominal/Gastrointestinal Exam: soft, No tenderness, No distention Extremity Exam: non-tender, normal range of motion Neurologic Exam: alert, oriented x 3, cooperative, sensation nml, No motor deficits Skin Exam: warm, dry, No rash SpO2 Interpretation: normal SpO2: 100 Oxygen Delivery: Room Air - Course Nursing assessment & vital signs reviewed: Yes EKG Interpreted by Me: RATE (115), A-fib, NORMAL AXIS, Left [place] Deviation, prolonged QT interval (QTC 526), Left Bundle Branch Block - Radiology Exams cxr X-ray Interpretation: Reviewed by me (pulmonary fibrosis, AICD, CM) Ordered Tests: Active Orders 24 hr Category Date Time Status Cath for Specimen-Straight STAT Care 06/08/17 17:33 Active EKG-ER Only STAT Care 06/08/17 17:32 Active IV Insertion STAT Care 06/08/17 17:32 Active Pulse Oximetry (ED) STAT Care 06/08/17 17:32 Active CHEST 1 VIEW (PORTABLE) Stat Exams 06/08/17 17:33 Taken CBC W DIFF Stat Lab 06/08/17 17:45 Completed CMP Stat Lab 06/08/17 17:45 Completed CULTURE,URINE Stat Lab 06/08/17 18:20 Received Lactic Acid Stat Lab 06/08/17 Completed NT PRO BNP Stat Lab 06/08/17 17:45 Completed PROTIME WITH INR Stat Lab 06/08/17 17:45 Completed PTT Stat Lab 06/08/17 17:45 Completed TROPONIN Q3H Lab 06/08/17 17:45 Completed TROPONIN Q3H Lab 06/08/17 20:45 Ordered TROPONIN Q3H Lab 06/08/17 23:45 Ordered TROPONIN Q3H Lab 06/09/17 02:45 Ordered TROPONIN Q3H Lab 06/09/17 05:45 Ordered UA W/ MICROSCOPIC Stat Lab 06/08/17 18:20 Completed VENOUS BLOOD GAS Stat Lab 06/08/17 17:32 Completed Respiratory Nebulizer STAT RT 06/08/17 18:19 Active Medication Summary Discontinued Medications Generic Name Dose Route Start Last Admin Trade Name Freq PRN Reason Stop Dose Admin Albuterol/Ipratropium 3 ml 06/08/17 18:18 06/08/17 18:35 Duoneb 0.5-3 Mg/3 Ml Neb IH 06/08/17 18:19 3 ml STAT ONE Administration Albuterol/Ipratropium Confirm 06/08/17 18:30 Duoneb 0.5-3 Mg/3 Ml Neb Administered 06/08/17 18:31 Dose 3 ml IH .STK-MED ONE Lab/Rad Data: Laboratory Result Diagrams 06/08/17 17:45 09/14/17 17:45 Laboratory Results 06/08/17 06/08/17 06/08/17 Range/Units Unknown 18:20 17:45 WBC (4.0-10.5) K/mm3 RBC (4.1-5.4) M/mm3 Hgb (12.0-16.0) gm/dl Hct (35-47) % MCV (78-100) fl MCH (26-32) pg MCHC (32-36) g/dl RDW (11.5-14.0) % Plt Count (150-450) K/mm3 MPV (6-9.5) fl Gran % (36.0-66.0) % Lymphocytes % (24.0-44.0) % Monocytes % (0.0-12.0) % Eosinophils % (0.00-5.0) % Basophils % (0.0-0.4) % Basophils # (0-0.4) INR 1.77 (0.8-3.0) APTT 31.9 (25.3-37.0) SECONDS VBG pH (7.32-7.42) VBG pCO2 at Pat Temp (42-55) mm/Hg VBG pO2 at Pat Temp (25-40) mm/Hg VBG HCO3 (22-28) meq/L VBG O2 Sat ([place]) (95-100) VBG Base Excess (-2.0-2.0) VBG Hemoglobin VBG Carboxyhemoglobin (0.0-6.9) % T HGB POC Potassium (3.5-5.1) Sodium (136-145) mEq/L Potassium (3.5-5.1) mEq/L Chloride (98-107) mEq/L Carbon Dioxide (21-32) mEq/L Anion Gap (5-15) MEQ/L BUN (9-20) mg/dL Creatinine (0.55-1.30) mg/dl Estimated GFR ML/MIN Glucose (70-110) MG/DL Lactic Acid 1.3 (0.4-2.0) Calcium (8.5-10.1) mg/dL Total Bilirubin (0.2-1.0) mg/dL AST (15-37) U/L ALT (12-78) U/L Alkaline Phosphatase (46-116) U/L Troponin I (0.000-0.056) ng/ml NT-Pro-B Natriuret Pep (0-450) pg/ml Serum Total Protein (6.4-8.2) gm/dL Albumin (3.4-5.0) g/dL Ur Collection Type CATH Urine Color YELLOW (YELLOW) Urine Appearance CLOUDY (CLEAR) Urine pH 6.0 (5-6) Ur Specific [place] 1.010 (1.005-1.025) Urine Protein TRACE (Negative) Urine Ketones NEGATIVE (NEGATIVE) Urine Blood 50 (0-5) [place]/ul Urine Nitrite POSITIVE (NEGATIVE) Urine Bilirubin NEGATIVE (NEGATIVE) Urine Urobilinogen NORMAL (0-1) mg/dL Ur Leukocyte Esterase 2+ (NEGATIVE) Urine Microscopic RBC 2-5 (0-2) /HPF Urine Microscopic WBC >100 (0-5) /HPF Ur Epithelial Cells MANY (FEW) /HPF Urine Bacteria MANY (NEGATIVE) /HPF Urine Glucose NEGATIVE (NEGATIVE) mg/dL Specimen Received 06-08-17 1845 06/08/17 06/08/17 06/08/17 Range/Units 17:45 17:45 17:45 WBC 8.3 (4.0-10.5) K/mm3 RBC 4.07 L (4.1-5.4) M/mm3 Hgb 12.3 (12.0-16.0) gm/dl Hct 38.7 (35-47) % MCV 95.1 (78-100) fl MCH 30.2 (26-32) pg MCHC 31.8 L (32-36) g/dl RDW 15.2 H (11.5-14.0) % Plt Count 254 (150-450) K/mm3 MPV 9.9 H (6-9.5) fl Gran % 49.5 (36.0-66.0) % Lymphocytes % 37.0 (24.0-44.0) % Monocytes % 9.6 (0.0-12.0) % Eosinophils % 3.5 (0.00-5.0) % Basophils % 0.4 (0.0-0.4) % Basophils # 0.03 (0-0.4) INR (0.8-3.0) APTT (25.3-37.0) SECONDS VBG pH (7.32-7.42) VBG pCO2 at Pat Temp (42-55) mm/Hg VBG pO2 at Pat Temp (25-40) mm/Hg VBG HCO3 (22-28) meq/L VBG O2 Sat ([place]) (95-100) VBG Base Excess (-2.0-2.0) VBG Hemoglobin VBG Carboxyhemoglobin (0.0-6.9) % T HGB POC Potassium (3.5-5.1) Sodium 143 (136-145) mEq/L Potassium 5.2 H (3.5-5.1) mEq/L Chloride 100 (98-107) mEq/L Carbon Dioxide 32.5 H (21-32) mEq/L Anion Gap 15.6 H (5-15) MEQ/L BUN 44 H (9-20) mg/dL Creatinine 1.35 H (0.55-1.30) mg/dl Estimated GFR 40 ML/MIN Glucose 160 H (70-110) MG/DL Lactic Acid (0.4-2.0) Calcium 10.0 (8.5-10.1) mg/dL Total Bilirubin 1.20 H (0.2-1.0) mg/dL AST 31 (15-37) U/L ALT 23 (12-78) U/L Alkaline Phosphatase 77 (46-116) U/L Troponin I 0.053 (0.000-0.056) ng/ml NT-Pro-B Natriuret Pep 01335 H (0-450) pg/ml Serum Total Protein 6.7 (6.4-8.2) gm/dL Albumin 3.5 (3.4-5.0) g/dL Ur Collection Type Urine Color (YELLOW) Urine Appearance (CLEAR) Urine pH (5-6) Ur Specific [place] (1.005-1.025) Urine Protein (Negative) Urine Ketones (NEGATIVE) Urine Blood (0-5) [place]/ul Urine Nitrite (NEGATIVE) Urine Bilirubin (NEGATIVE) Urine Urobilinogen (0-1) mg/dL Ur Leukocyte Esterase (NEGATIVE) Urine Microscopic RBC (0-2) /HPF Urine Microscopic WBC (0-5) /HPF Ur Epithelial Cells (FEW) /HPF Urine Bacteria (NEGATIVE) /HPF Urine Glucose (NEGATIVE) mg/dL Specimen Received 06/08/17 Range/Units 17:32 WBC (4.0-10.5) K/mm3 RBC (4.1-5.4) M/mm3 Hgb (12.0-16.0) gm/dl Hct (35-47) % MCV (78-100) fl MCH (26-32) pg MCHC (32-36) g/dl RDW (11.5-14.0) % Plt Count (150-450) K/mm3 MPV (6-9.5) fl Gran % (36.0-66.0) % Lymphocytes % (24.0-44.0) % Monocytes % (0.0-12.0) % Eosinophils % (0.00-5.0) % Basophils % (0.0-0.4) % Basophils # (0-0.4) INR (0.8-3.0) APTT (25.3-37.0) SECONDS VBG pH 7.49 H (7.32-7.42) VBG pCO2 at Pat Temp 52 (42-55) mm/Hg VBG pO2 at Pat Temp 29 (25-40) mm/Hg VBG HCO3 39.6 H* (22-28) meq/L VBG O2 Sat ([place]) 61.3 L (95-100) VBG Base Excess 14.1 H (-2.0-2.0) VBG Hemoglobin 12.4 VBG Carboxyhemoglobin 2.4 (0.0-6.9) % T HGB POC Potassium 4.6 (3.5-5.1) Sodium (136-145) mEq/L Potassium (3.5-5.1) mEq/L Chloride (98-107) mEq/L Carbon Dioxide (21-32) mEq/L Anion Gap (5-15) MEQ/L BUN (9-20) mg/dL Creatinine (0.55-1.30) mg/dl Estimated GFR ML/MIN Glucose (70-110) MG/DL Lactic Acid (0.4-2.0) Calcium (8.5-10.1) mg/dL Total Bilirubin (0.2-1.0) mg/dL AST (15-37) U/L ALT (12-78) U/L Alkaline Phosphatase (46-116) U/L Troponin I (0.000-0.056) ng/ml NT-Pro-B Natriuret Pep (0-450) pg/ml Serum Total Protein (6.4-8.2) gm/dL Albumin (3.4-5.0) g/dL Ur Collection Type Urine Color (YELLOW) Urine Appearance (CLEAR) Urine pH (5-6) Ur Specific [place] (1.005-1.025) Urine Protein (Negative) Urine Ketones (NEGATIVE) Urine Blood (0-5) [place]/ul Urine Nitrite (NEGATIVE) Urine Bilirubin (NEGATIVE) Urine Urobilinogen (0-1) mg/dL Ur Leukocyte Esterase (NEGATIVE) Urine Microscopic RBC (0-2) /HPF Urine Microscopic WBC (0-5) /HPF Ur Epithelial Cells (FEW) /HPF Urine Bacteria (NEGATIVE) /HPF Urine Glucose (NEGATIVE) mg/dL Specimen Received - Progress Progress Note: 06/08/17 19:20 Allergic to ACEi. She is on eliquis so ASA not given. Lungs pretty clear here. Stable on oxygen. Called Dr Altaf Linder who saw pt today. He advised she is retaining fluid and weight up so place in obs for lasix and rocephin for UTI. Counseled pt/family regarding: lab results, diagnosis, need for follow-up, rad results - Departure Time of Disposition: 19:21 Departure Disposition: Observation Clinical Impression: CHF (congestive heart failure), UTI (urinary tract infection) Condition: Fair Critical Care Time: No Referrals: SAUNDRA MARRERO [Primary Care Provider] - Instructions: Heart Failure
[2017-06-08 18:34] LABS: ALBUMIN 3.5 g/dL (3.4-5.0); ANION GAP 15.6 MEQ/L (5-15); BILIRUBIN,TOTAL 1.2 mg/dL (0.2-1.0); Carbon Dioxide 32.5 mEq/L (21-32); Potassium 5.2 mEq/L (3.5-5.1); Total Protein 6.7 gm/dL (6.4-8.2)
[2017-06-08 18:46] LABS: Bilirubin NEGATIVE (NEGATIVE); Blood 50 Ery/ul (0-5); COMPLETE URINE MICROSCOPIC? YES; Collection Type CATH; Glucose NEGATIVE (NEGATIVE); Leukocyte Esterase 2+ (NEGATIVE)
[2017-06-08 18:47] LABS: ADD URINE CULTURE? YES (NO); Bacteria MANY /HPF (NEGATIVE); Epithelial Cells MANY /HPF (FEW); WBC >100 /HPF (0-5)
[2017-06-08] MEDS ORDERED: ROCEPHIN 1 Gm-D5w 50 ml Bag** 1 G/50 ML IVPB IV STA (19:19)
[2017-06-08] MEDS ORDERED: Lasix 40 MG/4 ML IV ONE (19:20)
[2017-06-08] MEDS ORDERED: ROCEPHIN 1 Gm-D5w 50 ml Bag** 1 G/50 ML IVPB IV ONE (19:26)
[2017-06-08] MEDS ORDERED: Lasix 40 MG/4 ML ONE (19:26)
[2017-06-08] MEDS ORDERED: Lasix 40 MG/4 ML IV SCH (20:24)
[2017-06-08] MEDS ORDERED: DUONEB 0.5-3 MG/3 ml Neb IH PRN (20:24)
[2017-06-08] MEDS ORDERED: TYLENOL 325 MG PO PRN (20:24)
[2017-06-08] MEDS ORDERED: xanAX 0.25 MG PO PRN (20:48)
[2017-06-08] MEDS ORDERED: Nitrostat 0.4 MG Tablet SL PRN (20:50)
[2017-06-08] MEDS ORDERED: ULTRAM 50 MG PO PRN (20:52)
[2017-06-08] MEDS: Klor Con 10 MEQ PO SCH (21:31)
[2017-06-08] MEDS: ZOCOR 20MG PO SCH (21:32)
[2017-06-08] MEDS: COREG 12.5 MG PO SCH (21:32)
[2017-06-08] MEDS: ELIQUIS PO SCH (21:33)
[2017-06-09 06:17] LABS: ANION GAP 12.1 MEQ/L (5-15); Carbon Dioxide 34.6 mEq/L (21-32); Potassium 3.6 mEq/L (3.5-5.1)
[2017-06-09] MEDS ORDERED: Lasix 40 MG/4 ML IV SCH (08:00)
--- NOTE | 2017-06-09 09:02 | XRAY ---
Indication: Short of breath. Comparison: March 30, 2017. Portable chest again demonstrates borderline cardiomegaly and bibasilar infiltrates/atelectasis/effusions, decreased on the left, concerning for cardiac decompensation. Superimposed pneumonia not excluded. Stable CABG surgery, left-sided AICD, osteopenia, and bony degenerative changes.
[2017-06-09] MEDS: Zaroxolyn 2.5 MG PO SCH (09:03)
[2017-06-09] MEDS: ECOTRIN 81 MG PO SCH (09:03)
[2017-06-09] MEDS: SYNTHROID 125 MCG PO SCH (09:03)
[2017-06-09] MEDS: ELIQUIS PO SCH ×2 (09:03→21:23)
[2017-06-09] MEDS: Klor Con 10 MEQ PO SCH ×3 (09:03→21:24)
[2017-06-09] MEDS: COREG 12.5 MG PO SCH ×2 (09:03→21:23)
[2017-06-09] MEDS: Lexapro 10 MG PO SCH (09:04)
--- NOTE | 2017-06-09 09:32 | HP ---
HISTORY OF PRESENT ILLNESS: This is an 82 year-old patient of Dr. Sudheer Melendez from [facility] who presented to the emergency department with increasing shortness of breath. The patient reports that she has had breathing problems since last Monday. She usually wears 5 liters of oxygen all the time at [facility]. She reports that she just could not seem to get her breath. She does state that she feels better now. The patient was unsure if she had a history of pulmonary fibrosis that had been reported to me by her primary care doctor. REVIEW OF SYSTEMS: She denies any pain anywhere. No cough. No fever. No dysuria. She reports that her stools have been normal. She has had decreased appetite. Otherwise the review of systems is negative. PAST MEDICAL HISTORY: The patient reports congestive heart failure, coronary artery disease with history of remote bypass. She has a pacemaker in place. She use to have a defibrillator but this has been removed and the group home chart also says hyperlipidemia, atrial fibrillation, chronic obstructive pulmonary disease, hypertension, depression, sleep apnea, hypothyroidism, anxiety. PAST SURGICAL HISTORY: Coronary artery bypass graft, pacemaker placement, defibrillator placement and removal. MEDICATIONS: Alprazolam 0.25 mg every 8 hours as needed, amlodipine 5 mg daily, Eliquis 2.5 mg p.o. b.i.d., aspirin 81 mg p.o. daily, atorvastatin 20 mg p.o. q.h.s., carvedilol 12.5 mg p.o. b.i.d., Lexapro 20 mg p.o. daily, Lasix 20 mg at noon and 40 mg at 0600 hours, levothyroxine 125 mcg daily, Imodium 2 mg every six hours as needed, Zaroxolyn 2.5 mg daily, nitroglycerin 0.4 mg as needed, potassium chloride 10 mEq daily, potassium chloride 20 mEq daily, tramadol 50 mg every 8 hours as needed. ALLERGIES: OLIVIA INHIBITOR. SOCIAL HISTORY: She reports that she has been at [facility] for three months and that she has been there since the hospitalization. She denies any current tobacco. She used to smoke 25 years ago. No alcohol use. She has family who lives in [place]. FAMILY HISTORY: Her mother is and had hypertension. Her father is and had diabetes mellitus type 2. PHYSICAL EXAMINATION: VITAL SIGNS: Temperature current 97.9F, temperature max 97.9F, heart rate 66 to 122 currently 66, respiratory rate 18 to 24 currently 20, blood pressure 116 to 146 over 60 to 78, weight on 06/08/2017 at 2044 hours was 52.5 and on 06/09/2017 at 0600 hours 50.9. Oxygen saturation 89% on room air, 93-100% on 5 liters nasal cannula. GENERAL: The patient is a pleasant lady lying back in bed in no acute distress. CVS: She has an irregular-irregular rhythm. No murmurs, gallops or rubs are appreciated. CHEST: Clear to auscultation bilaterally with no crackles or wheezes. She has distant breath sounds that are equal. ABDOMEN: Soft, nontender, nondistended with normal bowel sounds. EXTREMITIES: No clubbing, cyanosis or edema. SKIN: Warm, dry and intact. LABORATORY DATA AND TESTS: CBC within normal limits. Potassium 5.2 on admission and now 3.6, creatinine 1.35 on admission and now 1.31. BNP was 12,264. She had serial troponins that have been negative. UA is greater than 100 white blood cells and many bacteria. Urine culture growing gram negative with ID and sensitivity pending. Blood cultures have been canceled. EKG from 06/08/2017 at 1730 hours revealed atrial fibrillation with rate of 115 with a left bundle branch block, intraventricular conduction delay. Chest x-ray there is no formal report from the radiologist. ASSESSMENT AND PLAN: 1) CONGESTIVE HEART FAILURE: She has Lasix 40 mg IV ordered every 12 hours. Her weight is down significantly and is now only been measured with how many times she has urinated. Will try to get more accurate ins and outs. I would like to change her Lasix IV once a day. She has been continued on metolazone as well. Will try to obtain an echo as she has not had a recent one. She is allergic to OLIVIA inhibitors. 2) ATRIAL FIBRILLATION WHICH IS CHRONIC: She is currently anticoagulated. Her rate is fairly well controlled and they need to increase her carvedilol. 3) HISTORY OF CHRONIC OBSTRUCTIVE PULMONARY DISEASE: Will continue with breathing treatments. She is on her home level of oxygen at 5 liters right now. 4) ANXIETY: Will continue with her home medications. 5) CODE STATUS: She desires to be supportive care only and this was confirmed with her today. 6) URINARY TRACT INFECTION: Will continue with ceftriaxone for his and await the sensitivity on her culture that is growing a gram negative organism.
[2017-06-09] MEDS ORDERED: NON-FORMULARY ITEM (Escitalopram Oxalate [Lexapro] 20 MG) PO SCH (10:00)
[2017-06-09] MEDS ORDERED: NON-FORMULARY ITEM (Aspirin [Aspirin] 81 MG) PO SCH (10:00)
[2017-06-09] MEDS: ZOCOR 20MG PO SCH (21:24)
[2017-06-09] MEDS ORDERED: ROCEPHIN 1 Gm-D5w 50 ml Bag** 1 G/50 ML IVPB IV SCH (22:00)
[2017-06-10 05:50] LABS: ANION GAP 10.3 MEQ/L (5-15); Carbon Dioxide 36.6 mEq/L (21-32); Potassium 3.4 mEq/L (3.5-5.1)
[2017-06-10 09:41] VITALS: O2SAT 98
[2017-06-10] MEDS: ELIQUIS PO SCH (09:57)
[2017-06-10] MEDS: Lexapro 10 MG PO SCH (09:58)
[2017-06-10] MEDS: Zaroxolyn 2.5 MG PO SCH (09:58)
[2017-06-10] MEDS: Klor Con 10 MEQ PO SCH (09:59)
[2017-06-10] MEDS ORDERED: Lasix 40 MG/4 ML IV SCH (10:00)
[2017-06-10] MEDS: COREG 12.5 MG PO SCH (10:01)
[2017-06-10] MEDS: ECOTRIN 81 MG PO SCH (10:02)
[2017-06-10] MEDS: SYNTHROID 125 MCG PO SCH (10:04)
[2017-06-10 11:09] VITALS: BP 102/58; PULSE 90
--- NOTE | 2017-06-10 11:26 | PCM.DCORD ---
- Discharge Discharge Date: 06/10/17 Disposition: DC TO [facility] Condition: Fair Prescriptions: New Cefdinir 300 mg [Omnicef 300 mg] 300 mg PO BID #10 capsule Acetaminophen 325 mg [Tylenol 325 mg] 650 mg PO Q4H PRN PRN tablet PRN Reason: Pain And/Or Fever Continue Apixaban [Eliquis] 2.5 mg PO BID Levothyroxine Sodium 125 mcg PO DAILY Carvedilol 12.5 mg [Coreg 12.5 mg] 12.5 mg PO BID Atorvastatin Calcium [Lipitor 20MG Tablet] 20 mg PO HS Aspirin 81 mg PO DAILY Alprazolam 0.25 mg [xanAX 0.25 MG] 0.25 mg PO Q8HPRN PRN PRN Reason: Anxiety Nitroglycerin 0.4 mg Tablet [Nitrostat 0.4 MG Tablet] 0.4 mg SL Q5MIN PRN MR X 3 PRN PRN Reason: Chest Pain Tramadol HCl 50 mg [Ultram 50 mg] 50 mg PO Q8HPRN PRN PRN Reason: Pain Furosemide 40 mg [Lasix 40 MG] 40 mg PO 0600 Potassium Chloride 10 Meq Tab* [Klor Con 10 MEQ] 10 meq PO DAILY Metolazone 2.5 mg [Zaroxolyn 2.5 MG] 2.5 mg PO DAILY Escitalopram Oxalate [Lexapro] 20 mg PO DAILY Furosemide 20 mg [Lasix 20 mg] 1 tab PO 1200 Discontinued Amlodipine Besylate 5 mg [Norvasc 5 mg] 5 mg PO DAILY Loperamide HCl 2 mg [Imodium 2 mg] 2 mg PO Q6H PRN PRN Reason: Diarrhea Potassium Chloride 20 Meq [Klor-Con 20 MEQ] 1 tab PO DAILY Instructions: Heart Failure Additional Instructions: BMP on Monday06/12/17. Follow up with: SAUNDRA MARRERO [Primary Care Provider] -
--- NOTE | 2017-06-10 16:25 | DS ---
DISCHARGE DIAGNOSIS: 1. CONGESTIVE HEART FAILURE. 2. ATRIAL FIBRILLATION. 3. CHRONIC HISTORY OF CHRONIC OBSTRUCTIVE PULMONARY DISEASE. 4. ANXIETY. 5. URINARY TRACT INFECTION. DISCHARGE PHYSICAL EXAM: VITALS: Temperature current 97.9, temperature maximum 97.9, heart rate 73-90, respiratory rate 18-20, O2 saturation 96-98% on 5 liters nasal cannula, BP 102-118/55-81. Discharge weight 50.07 Kg. GENERAL: Patient is lying in bed a pleasant, talkative lady in no acute distress. CVS: She has an irregularly irregular rhythm. No murmurs, gallops, or rubs are appreciated. CHEST: Clear to auscultation bilaterally with distant breath sounds. No crackles. No wheezes. The breath sounds are equal. ABDOMEN: Soft, nontender, nondistended with normal bowel sounds. EXTREMITIES: No clubbing, cyanosis, or edema. SKIN: Warm, dry, and intact. HOSPITAL COURSE: 1. Congestive heart failure exacerbation. Echocardiogram was ordered. It appears that it has been taken, but there is no formal report on this yet. She could not be on an angiotensin-converting enzyme inhibitor as she is allergic to this. She was given Lasix IV with good urine output. Will have her return to [facility] on her home doses of Lasix and metolazone and recheck a BMP on Monday. 2. Atrial fibrillation. This is chronic and was stable during her hospitalization. 3. History of chronic obstructive pulmonary disease. This was also stable during her hospitalization. She continued on 5 liters nasal cannula of O2. 4. Anxiety. Again, stable during her hospitalization. She was continued on her medications. 5. Urinary tract infection. She had a urine culture growing a gram negative organism. The ID and sensitivity was not back at the time of her discharge. She was given ceftriaxone 1 Gm IV q 24 h for 2 days' worth while she was here. I am discharging her on cefdinir 300 mg PO bid for 5 more days to finish out her course. DISPOSITION: The patient will be discharged to [facility]. Please see discharge order for discharge medications. Dr. Carlitos Melendez can follow-up with her at [facility].
--- NOTE | 2017-06-14 09:12 | ECHO ---
DATE OF PROCEDURE: 06/09/2017 CLINICAL INFORMATION: Exacerbation of congestive heart failure. The M-mode 2D, and Doppler echocardiogram including color flow Doppler shows the left ventricle was normal in size with a dimension of 5.2 cm. The septal wall thickness is normal at 0.6 cm. The left ventricular posterior wall thickness is normal at 1.1 cm. The ejection fraction was calculated to be 31%. However there appears to be severe left ventricular systolic dysfunction with an ejection fraction in the range of 10 to 15%. The right ventricle is not well visualized. The left atrium is mildly dilated with dimension of 4.5 cm. The right atrium appears to be dilated. The intra-atrial septum is intact. There is aortic valve leaflet calcification and evidence of sclerosis without evidence of significant stenosis. There is mitral valve leaflet thickening associated with moderate mitral regurgitation. There is mild pulmonic regurgitation present. There is a pacing electrode in the right ventricle and right atrium. There is no left ventricular thrombus. There is moderate to severe tricuspid regurgitation. The right ventricular systolic pressure is elevated to 36 mm of [place] consistent with mild pulmonary hypertension. The aortic root is normal at 2.1 cm. There is no pericardial effusion present. IMPRESSION: 1) SEVERE LEFT VENTRICULAR SYSTOLIC DYSFUNCTION. 2) MILD LEFT ATRIAL DILATATION. 3) AORTIC VALVULAR SCLEROSIS. 4) MODERATE MITRAL REGURGITATION. 5) MILD TRICUSPID REGURGITATION. 6) MILD PULMONARY HYPERTENSION. 7) MILD PULMONIC REGURGITATION. 8) RIGHT ATRIAL AND RIGHT VENTRICULAR ELECTRODE. 9) NO LEFT VENTRICULAR THROMBUS IS NOTED. 10) MILD RIGHT ATRIAL DILATATION.
== END 2017-06-10 13:25 ==
LOC: ED 17:23 → MED SURG 20:12
PROVIDERS: ADMIT Family Medicine; ATTEND Family Medicine
DX: I50.9 Heart failure, unspecified (principal); I48.91 Unspecified atrial fibrillation; J44.9 Chronic obstructive pulmonary disease, unspecified; N39.0 Urinary tract infection, site not specified; F41.9 Anxiety disorder, unspecified; I44.7 Left bundle-branch block, unspecified; I45.9 Conduction disorder, unspecified
CPT/HCPCS: 93268; 96374; 99285; 36000; 96360; 93005; 81000; 85610; 85730; 36415 ×3; 83880; 87077 ×2; 85025; 80048 ×2; 80053; 84484 ×2; 87086; 93306; 71010; 82805; 94640; 94760 ×2; 83605; P9612; G0378; J0696; J1940; A9270-GY

== ENCOUNTER 2017-08-19 10:32 | Emergency (ER) | payer MEDICARE, MEDICAID ==
--- NOTE | 2017-08-19 10:49 | ERPHSYRPT ---
- History of Present Illness Time Seen by Provider: 08/19/17 10:43 Source: patient, EMS, group home records Exam Limitations: no limitations Physician History: pt accidentally given another patients meds, digoxin, lisinopril and lopressor, at 9:15am today at the [facility], no symptoms, no chest pain, not dizzy, not short of breath, no NV Timing/Duration: today Associated Symptoms: denies symptoms Allergies/Adverse Reactions: OLIVIA Inhibitors Allergy (Intermediate, Verified 08/19/17 10:49) Home Medications: Alprazolam 0.25 mg [xanAX 0.25 MG] 0.25 mg PO Q8HPRN PRN 03/30/17 [History ] Apixaban [Eliquis] 2.5 mg PO BID 03/30/17 [History] Aspirin 81 mg PO DAILY 03/30/17 [History] Atorvastatin Calcium [Lipitor 20MG Tablet] 20 mg PO HS 03/30/17 [History] Carvedilol 12.5 mg [Coreg 12.5 mg] 12.5 mg PO BID 03/30/17 [History] Levothyroxine Sodium 125 mcg PO DAILY 03/30/17 [History] Nitroglycerin 0.4 mg Tablet [Nitrostat 0.4 MG Tablet] 0.4 mg SL Q5MIN PRN MR X 3 PRN 03/30/17 [History] Tramadol HCl 50 mg [Ultram 50 mg] 50 mg PO Q8HPRN PRN 03/30/17 [History] Escitalopram Oxalate [Lexapro] 20 mg PO DAILY 06/08/17 [History] Furosemide 20 mg [Lasix 20 mg] 1 tab PO 1200 06/08/17 [History] Furosemide 40 mg [Lasix 40 MG] 40 mg PO 0600 06/08/17 [History] Metolazone 2.5 mg [Zaroxolyn 2.5 MG] 2.5 mg PO DAILY 06/08/17 [History] Potassium Chloride 10 Meq Tab* [Klor Con 10 MEQ] 10 meq PO DAILY 06/08/17 [ History] Hx Tetanus, Diphtheria Vaccination/Date Given: No Hx Influenza Vaccination/Date Given: No Hx Pneumococcal Vaccination/Date Given: No - Review of Systems Constitutional: No Symptoms Eyes: No Symptoms Ears, Nose, & Throat: No Symptoms Respiratory: No Symptoms Cardiac: No Symptoms Abdominal/Gastrointestinal: No Symptoms Musculoskeletal: No Symptoms Skin: No Symptoms Neurological: No Symptoms Psychological: No Symptoms - Past Medical History Pertinent Past Medical History: Yes Neurological History: No Pertinent History ENT History: Cataracts Cardiac History: Congestive Heart Failure, Hypertension, Myocardial Infarction ( [place]) Respiratory History: CHF, COPD Endocrine Medical History: No Pertinent History Musculoskeletal History: Arthritis GI Medical History: No Pertinent History History: No Pertinent History Psycho-Social History: Anxiety, Depression Female Reproductive Disorders: No Pertinent History - Past Surgical History Past Surgical History: Yes Neuro Surgical History: No Pertinent History Cardiac: CABG, Internal Defibrillator, Pacemaker Respiratory: No Pertinent History Gastrointestinal: No Pertinent History Genitourinary: No Pertinent History Musculoskeletal: No Pertinent History Female Surgical History: No Pertinent History Other Surgical History: pt no longer has defibrillator. does have pacemaker - Social History Smoking Status: Former smoker How long have you smoked: 40 Exposure to second hand smoke: No Alcohol Use: None Drug Use: none Patient Lives Alone: No Significant Family History: no pertinent family hx - Nursing Vital Signs Nursing Vital Signs: Initial Vital Signs Temperature 97.0 F 08/19/17 10:35 Pulse Rate 65 08/19/17 10:35 Respiratory Rate 20 08/19/17 10:35 Blood Pressure 120/66 08/19/17 10:35 O2 Sat by Pulse Oximetry 100 08/19/17 10:35 Pain Scale Pain Intensity 0 - Physical Exam General Appearance: no apparent distress Eye Exam: PERRL/EOMI Ears, Nose, Throat Exam: moist mucous membranes Neck Exam: normal inspection Respiratory Exam: normal breath sounds Cardiovascular Exam: regular rate/rhythm Gastrointestinal/Abdomen Exam: soft, No tenderness Extremity Exam: normal inspection Neurologic Exam: alert, cooperative Skin Exam: normal color, warm, dry - Course Nursing assessment & vital signs reviewed: Yes Ordered Tests: Active Orders 24 hr Category Date Time Status Classification And Treatment Director STAT Care 08/19/17 10:46 Active Oxygen-ED Only NASAL CANNULA 2 lpm Care 08/19/17 10:46 Active DIGOXIN Stat Lab 08/19/17 10:58 Completed Lab/Rad Data: Laboratory Results 08/19/17 Range/Units 10:58 Digoxin 0.63 (0.5-1.5) ng/ml - Progress Progress: improved Progress Note: 08/19/17 13:52 no decompensation, pt vss, alert d/w poison control Discussed with Dr.: Felicia Will see patient in: office Counseled pt/family regarding: lab results, diagnosis, need for follow-up - Departure Time of Disposition: 13:54 Departure Disposition: Extended Care Facility Clinical Impression: Accidental drug ingestion Qualifiers: Encounter type: initial encounter Qualified Code(s): T50.901A - Poisoning by unspecified drugs, medicaments and biological substances, accidental ( unintentional), initial encounter Condition: Stable Critical Care Time: No Referrals: SAUNDRA MARRERO [Primary Care Provider] - Instructions: Accidental Ingestion -- Adult Additional Instructions: continue present medical regimen, return if worse
[2017-08-19 14:07] VITALS: BP 103/70; PULSE 68; O2SAT 98
== END 2017-08-19 14:26 | disposition home or self-care (01) ==
LOC: ED 10:32
DX: T50.901A Poisoning by unspecified drugs, medicaments and biological substances, accidental (unintentional), initial encounter (principal); Y92.129 Unspecified place in nursing home as the place of occurrence of the external cause; Z79.899 Other long term (current) drug therapy
CPT/HCPCS: 36415; 80162; 93041; 99284

== ENCOUNTER 2017-10-28 00:51 | Observation (INO) | payer MEDICARE ==
[2017-10-28] MEDS ORDERED: Sodium Chloride 0.9% 1000 ML 1,000 ML ONE (01:05)
[2017-10-28] MEDS ORDERED: Phenergan 25 MG INJ IV ONE (01:09)
[2017-10-28] MEDS ORDERED: Sodium Chloride 0.9% 1000 ML 1,000 ML IV STA (01:09)
[2017-10-28] MEDS ORDERED: Phenergan 25 MG INJ ONE (01:10)
[2017-10-28] MEDS ORDERED: Cardizem IV 50 MG/10 ML IV ONE ×3 (01:10→06:36)
--- NOTE | 2017-10-28 01:13 | ERPHSYRPT ---
- History of Present Illness Time Seen by Provider: 10/28/17 01:05 Source: patient Exam Limitations: no limitations Physician History: FOR THE PAST 12 HOURS PT HAS HAD NAUSEA, SHORTNESS OF AIR AND HOT FLASHES; DENIES CHEST PAIN, ABDOMINAL PAIN, VOMITING, DIARRHEA. LAST BM WAS YESTERDAY & WNL. Allergies/Adverse Reactions: OLIVIA Inhibitors Allergy (Intermediate, Verified 10/28/17 02:03) Home Medications: Alprazolam 0.25 mg [xanAX 0.25 MG] 0.25 mg PO Q8HPRN PRN 03/30/17 [History ] Apixaban [Eliquis] 2.5 mg PO BID 03/30/17 [History] Aspirin 81 mg PO DAILY 03/30/17 [History] Atorvastatin Calcium [Lipitor 20MG Tablet] 20 mg PO HS 03/30/17 [History] Carvedilol 12.5 mg [Coreg 12.5 mg] 12.5 mg PO BID 03/30/17 [History] Levothyroxine Sodium 125 mcg PO DAILY 03/30/17 [History] Nitroglycerin 0.4 mg Tablet [Nitrostat 0.4 MG Tablet] 0.4 mg SL Q5MIN PRN MR X 3 PRN 03/30/17 [History] Tramadol HCl 50 mg [Ultram 50 mg] 50 mg PO Q8HPRN PRN 03/30/17 [History] Escitalopram Oxalate [Lexapro] 20 mg PO DAILY 06/08/17 [History] Furosemide 20 mg [Lasix 20 mg] 1 tab PO 1200 06/08/17 [History] Furosemide 40 mg [Lasix 40 MG] 40 mg PO 0600 06/08/17 [History] Metolazone 2.5 mg [Zaroxolyn 2.5 MG] 2.5 mg PO DAILY 06/08/17 [History] Potassium Chloride 10 Meq Tab* [Klor Con 10 MEQ] 10 meq PO DAILY 06/08/17 [ History] Hx Tetanus, Diphtheria Vaccination/Date Given: No Hx Influenza Vaccination/Date Given: No Hx Pneumococcal Vaccination/Date Given: No - Review of Systems Constitutional: Other (HOT FLASHES) Respiratory: Dyspnea Cardiac: No Chest Pain Abdominal/Gastrointestinal: Nausea, No Abdominal Pain, No Vomiting, No Diarrhea Endocrine: No Excessive Sweating All Other Systems: Reviewed and Negative - Past Medical History Pertinent Past Medical History: Yes Neurological History: No Pertinent History ENT History: Cataracts Cardiac History: Congestive Heart Failure, Hypertension, Myocardial Infarction ( [place]) Respiratory History: CHF, COPD Endocrine Medical History: No Pertinent History Musculoskeletal History: Arthritis GI Medical History: No Pertinent History History: No Pertinent History Psycho-Social History: Anxiety, Depression Female Reproductive Disorders: No Pertinent History - Past Surgical History Past Surgical History: Yes Neuro Surgical History: No Pertinent History Cardiac: CABG, Internal Defibrillator, Pacemaker Respiratory: No Pertinent History Gastrointestinal: No Pertinent History Genitourinary: No Pertinent History Musculoskeletal: No Pertinent History Female Surgical History: No Pertinent History Other Surgical History: pt no longer has defibrillator. does have pacemaker - Social History Smoking Status: Former smoker How long have you smoked: 40 Exposure to second hand smoke: No Alcohol Use: None Drug Use: none Patient Lives Alone: No Significant Family History: no pertinent family hx - Nursing Vital Signs Nursing Vital Signs: Initial Vital Signs Temperature 97.8 F 10/28/17 01:10 Pulse Rate 139 H 10/28/17 01:10 Respiratory Rate 24 10/28/17 01:10 Blood Pressure 129/107 10/28/17 01:10 O2 Sat by Pulse Oximetry 99 10/28/17 01:10 Pain Scale Pain Intensity 0 - Physical Exam General Appearance: alert Eye Exam: eyes nml inspection Ears, Nose, Throat Exam: TMs normal, dry mucous membranes Neck Exam: normal inspection Respiratory Exam: diminished breath sounds (BILATERAL BASES) Cardiovascular Exam: tachycardia Gastrointestinal/Abdomen Exam: soft, normal bowel sounds Back Exam: normal range of motion Extremity Exam: normal inspection, No pedal edema Neurologic Exam: alert, cooperative Skin Exam: warm, dry - Course Nursing assessment & vital signs reviewed: Yes EKG Interpreted by Me: RATE (146), A-fib (RVR), Left [place] Deviation, Non- specific ST Changes - Radiology Exams Chest X-ray Interpretation: Interpreted by me (MILD CONGESTIVE CHANGES; CM; INFILTRATES R>L.) Ordered Tests: Active Orders 24 hr Category Date Time Status EKG-ER Only STAT Care 10/28/17 01:10 Active IV Insertion STAT Care 10/28/17 01:09 Active Oxygen-ED Only NASAL CANNULA 2 lpm Care 10/28/17 01:10 Active CHEST 1 VIEW (PORTABLE) Stat Exams 10/28/17 01:10 Taken AMYLASE Stat Lab 10/28/17 01:30 Completed BLOOD CULTURE Stat Lab 10/28/17 01:35 Received CBC W DIFF Stat Lab 10/28/17 01:30 Completed CMP Stat Lab 10/28/17 01:30 Completed CULTURE, THROAT Stat Lab 10/28/17 01:35 Received CULTURE,SPUTUM Stat Lab 10/28/17 01:34 Uncollected LIPASE Stat Lab 10/28/17 01:30 Completed Lactic Acid Stat Lab 10/28/17 01:14 Completed Lactic Acid Stat Lab 10/28/17 03:28 Results MAG [MAGNESIUM] Stat Lab 10/28/17 01:30 Completed PROTIME WITH INR Stat Lab 10/28/17 01:30 Completed PTT Stat Lab 10/28/17 01:30 Completed STREP SCREEN-BETA A Stat Lab 10/28/17 01:35 Completed T4 Stat Lab 10/28/17 01:30 Completed TROPONIN Q3H Lab 10/28/17 01:30 Completed TROPONIN Q3H Lab 10/28/17 03:20 Received TROPONIN Q3H Lab 10/28/17 07:15 Ordered TROPONIN Q3H Lab 10/28/17 10:15 Ordered TROPONIN Q3H Lab 10/28/17 13:15 Ordered TSH [TSH, 3RD Generation] Stat Lab 10/28/17 01:30 Completed UA W/RFX UR CULTURE Stat Lab 10/28/17 01:09 Ordered Medication Summary Generic Name Dose Route Start Last Admin Trade Name Freq PRN Reason Stop Dose Admin Sodium Chloride 1,000 mls @ 100 mls/hr 10/28/17 01:30 10/28/17 01:38 Sodium Chloride 0.9% 1000 Ml IV 11/27/17 01:29 100 mls/hr .Q10H ABHIJIT Administration Discontinued Medications Generic Name Dose Route Start Last Admin Trade Name Freq PRN Reason Stop Dose Admin Diltiazem HCl 5 mg 10/28/17 01:10 10/28/17 01:24 Cardizem Iv 50 Mg/10 Ml IV 10/28/17 01:11 5 mg STAT ONE Administration Diltiazem HCl Confirm 10/28/17 01:22 Cardizem Iv 50 Mg/10 Ml Administered 10/28/17 01:23 Dose 50 mg IV .STK-MED ONE Furosemide 20 mg 10/28/17 01:30 10/28/17 01:46 Lasix 40 Mg/4 Ml IV 10/28/17 01:31 20 mg STAT ONE Administration Furosemide Confirm 10/28/17 01:42 Lasix 40 Mg/4 Ml Administered 10/28/17 01:43 Dose 40 mg .ROUTE .STK-MED ONE Sodium Chloride Confirm 10/28/17 01:05 Sodium Chloride 0.9% 1000 Ml Administered 10/28/17 01:06 Dose 1,000 mls @ ud .ROUTE .STK-MED ONE Sodium Chloride 1,000 mls @ 999 mls/hr 10/28/17 01:09 10/28/17 01:20 Sodium Chloride 0.9% 1000 Ml IV 10/28/17 02:09 999 mls/hr .Q1H1M STA Administration Ceftriaxone Sodium/Dextrose 1 g in 50 mls @ 100 mls/hr 10/28/17 01:34 01:46 Rocephin 1 Gm-D5w 50 Ml Bag IV 10/28/17 02:03 100 mls/hr STAT STA Administration Azithromycin 500 mg in 250 mls @ 250 mls/hr 10/28/17 01:34 10/28/17 02:05 Zithromax 500 Mg/ 250 Ml Nacl Premix IV 10/28/17 02:33 250 mls/hr STAT STA Administration Ceftriaxone Sodium/Dextrose Confirm 10/28/17 01:42 Rocephin 1 Gm-D5w 50 Ml Bag Administered 10/28/17 01:43 Dose 1 g in 50 mls @ ud IV .STK-MED ONE Azithromycin Confirm 10/28/17 01:57 Zithromax 500 Mg/ 250 Ml Nacl Premix Administered 10/28/17 01:58 Dose 500 mg in 250 mls @ ud IV .STK-MED ONE Promethazine HCl 12.5 mg 10/28/17 01:09 10/28/17 01:19 Phenergan 25 Mg Inj IV 10/28/17 01:10 12.5 mg STAT ONE Administration Promethazine HCl Confirm 10/28/17 01:10 Phenergan 25 Mg Inj Administered 10/28/17 01:11 Dose 25 mg .ROUTE .STK-MED ONE Lab/Rad Data: Laboratory Result Diagrams 10/28/17 01:30 10/28/17 01:30 Laboratory Results 10/28/17 10/28/17 10/28/17 Range/Units 03:28 01:35 01:35 WBC (4.0-10.5) K/mm3 RBC (4.1-5.4) M/mm3 Hgb (12.0-16.0) gm/dl Hct (35-47) % MCV (78-100) fl MCH (26-32) pg MCHC (32-36) g/dl RDW (11.5-14.0) % Plt Count (150-450) K/mm3 MPV (6-9.5) fl Gran % (36.0-66.0) % Lymphocytes % (24.0-44.0) % Monocytes % (0.0-12.0) % Eosinophils % (0.00-5.0) % Basophils % (0.0-0.4) % Basophils # (0-0.4) INR (0.8-3.0) APTT (25.3-37.0) SECONDS Sodium (136-145) mEq/L Potassium (3.5-5.1) mEq/L Chloride (98-107) mEq/L Carbon Dioxide (21-32) mEq/L Anion Gap (5-15) MEQ/L BUN (9-20) mg/dL Creatinine (0.55-1.30) mg/dl Estimated GFR ML/MIN Glucose (70-110) MG/DL Lactic Acid 3.0 H (0.4-2.0) Calcium (8.5-10.1) mg/dL Magnesium (1.8-2.4) mg/dL Total Bilirubin (0.2-1.0) mg/dL AST (15-37) U/L ALT (12-78) U/L Alkaline Phosphatase (46-116) U/L Troponin I (0.000-0.056) ng/ml Serum Total Protein (6.4-8.2) gm/dL Albumin (3.4-5.0) g/dL Amylase (25-115) U/L Lipase (73-393) U/L Thyroxine (T4) (4.7-13.3) UG/DL TSH 3rd Generation (0.358-3.740) mIU/L Influenza Type A Ag NEGATIVE (NEGATIVE) Influenza Type B Ag NEGATIVE (NEGATIVE) RSV (PCR) NEGATIVE (Negative) Streptococcus Screen NEGATIVE (Negative) 10/28/17 10/28/17 10/28/17 Range/Units 01:30 01:30 01:30 WBC (4.0-10.5) K/mm3 RBC (4.1-5.4) M/mm3 Hgb (12.0-16.0) gm/dl Hct (35-47) % MCV (78-100) fl MCH (26-32) pg MCHC (32-36) g/dl RDW (11.5-14.0) % Plt Count (150-450) K/mm3 MPV (6-9.5) fl Gran % (36.0-66.0) % Lymphocytes % (24.0-44.0) % Monocytes % (0.0-12.0) % Eosinophils % (0.00-5.0) % Basophils % (0.0-0.4) % Basophils # (0-0.4) INR 1.63 (0.8-3.0) APTT 34.9 (25.3-37.0) SECONDS Sodium (136-145) mEq/L Potassium (3.5-5.1) mEq/L Chloride (98-107) mEq/L Carbon Dioxide (21-32) mEq/L Anion Gap (5-15) MEQ/L BUN (9-20) mg/dL Creatinine (0.55-1.30) mg/dl Estimated GFR ML/MIN Glucose (70-110) MG/DL Lactic Acid (0.4-2.0) Calcium (8.5-10.1) mg/dL Magnesium (1.8-2.4) mg/dL Total Bilirubin (0.2-1.0) mg/dL AST (15-37) U/L ALT (12-78) U/L Alkaline Phosphatase (46-116) U/L Troponin I 0.031 (0.000-0.056) ng/ml Serum Total Protein (6.4-8.2) gm/dL Albumin (3.4-5.0) g/dL Amylase (25-115) U/L Lipase (73-393) U/L Thyroxine (T4) 9.1 (4.7-13.3) UG/DL TSH 3rd Generation 1.798 (0.358-3.740) mIU/L Influenza Type A Ag (NEGATIVE) Influenza Type B Ag (NEGATIVE) RSV (PCR) (Negative) Streptococcus Screen (Negative) 10/28/17 10/28/17 10/28/17 Range/Units 01:30 01:30 01:14 WBC 8.3 (4.0-10.5) K/mm3 RBC 4.55 (4.1-5.4) M/mm3 Hgb 13.2 (12.0-16.0) gm/dl Hct 41.5 (35-47) % MCV 91.2 (78-100) fl MCH 29.0 (26-32) pg MCHC 31.8 L (32-36) g/dl RDW 18.1 H (11.5-14.0) % Plt Count 182 (150-450) K/mm3 MPV 11.3 H (6-9.5) fl Gran % 58.2 (36.0-66.0) % Lymphocytes % 31.1 (24.0-44.0) % Monocytes % 9.5 (0.0-12.0) % Eosinophils % 0.8 (0.00-5.0) % Basophils % 0.4 (0.0-0.4) % Basophils # 0.03 (0-0.4) INR (0.8-3.0) APTT (25.3-37.0) SECONDS Sodium 142 (136-145) mEq/L Potassium 4.8 (3.5-5.1) mEq/L Chloride 103 (98-107) mEq/L Carbon Dioxide 27.7 (21-32) mEq/L Anion Gap 15.7 H (5-15) MEQ/L BUN 33 H (9-20) mg/dL Creatinine 1.76 H (0.55-1.30) mg/dl Estimated GFR 29 ML/MIN Glucose 175 H (70-110) MG/DL Lactic Acid 2.2 H (0.4-2.0) Calcium 9.6 (8.5-10.1) mg/dL Magnesium 2.2 (1.8-2.4) mg/dL Total Bilirubin 1.40 H (0.2-1.0) mg/dL AST 51 H (15-37) U/L ALT 55 (12-78) U/L Alkaline Phosphatase 94 (46-116) U/L Troponin I (0.000-0.056) ng/ml Serum Total Protein 7.3 (6.4-8.2) gm/dL Albumin 3.7 (3.4-5.0) g/dL Amylase 67 (25-115) U/L Lipase 119 (73-393) U/L Thyroxine (T4) (4.7-13.3) UG/DL TSH 3rd Generation (0.358-3.740) mIU/L Influenza Type A Ag (NEGATIVE) Influenza Type B Ag (NEGATIVE) RSV (PCR) (Negative) Streptococcus Screen (Negative) - Progress Progress Note: 10/28/17 03:52 PT HAS CHF AND I DON'T WANT TO GIVE MORE FLUID BOLUS BECAUSE PT RESPONDED WELL TO [facility]. Discussed with Dr.: Arelis (OBS - [id number]) - Departure Time of Disposition: 04:04 Departure Disposition: Observation Clinical Impression: A.FIB WITH RVR, PNEUMONIA, CHF, MILD DEHYDRATION, COPD, ARTHRITIS, ANXIETY, DEPRESSION, ELEVATED LACTIC ACID, HTN Condition: Stable Critical Care Time: No Referrals: SAUNDRA MARRERO [Primary Care Provider] -
[2017-10-28] MEDS ORDERED: Sodium Chloride 0.9% 1000 ML 1,000 ML IV SCH ×2 (01:30→05:23)
[2017-10-28] MEDS ORDERED: Lasix 40 MG/4 ML IV ONE (01:30)
[2017-10-28] MEDS ORDERED: Zithromax 500 MG/ 250 ML NaCl Premix 500 MG/250 ML IVPB IV STA (01:34)
[2017-10-28] MEDS ORDERED: ROCEPHIN 1 Gm-D5w 50 ml Bag** 1 G/50 ML IVPB IV STA (01:34)
[2017-10-28] MEDS ORDERED: ROCEPHIN 1 Gm-D5w 50 ml Bag** 1 G/50 ML IVPB IV ONE (01:42)
[2017-10-28] MEDS ORDERED: Lasix 40 MG/4 ML ONE (01:42)
[2017-10-28 01:43] LABS: BASOPHIL % 0.4 % (0.0-0.4); Basophil (Absolute #) 0.03 (0-0.4); Eosinophil % 0.8 % (0.00-5.0); Eosinophil (Absolute #) 0.07 (0-0.5); Granulocyte Absolute (ANC) 4.83 (1.4-6.9); Granulocytes % 58.2 % (36.0-66.0); Hematocrit 41.5 % (35-47); Hemoglobin 13.2 gm/dl (12.0-16.0); Lymphocyte (Absolute #) 2.58 (1.0-4.6); Lymphocytes % 31.1 % (24.0-44.0); Mean Cell Volume 91.2 fl (78-100); Mean Corpuscular Hgb Concent. 31.8 g/dl (32-36); Mean Platelet Volume 11.3 fl (6-9.5); Monocyte (Absolute #) 0.79 (0.0-1.3); Monocytes % 9.5 % (0.0-12.0); Platelet Count 182 K/mm3 (150-450); Red Blood Count 4.55 M/mm3 (4.1-5.4); Red Cell Distribution Width 18.1 % (11.5-14.0); White Blood Count 8.3 K/mm3 (4.0-10.5)
[2017-10-28] MEDS ORDERED: Zithromax 500 MG/ 250 ML NaCl Premix 500 MG/250 ML IVPB IV ONE (01:57)
[2017-10-28 01:58] LABS: INR 1.63 (0.8-3.0)
[2017-10-28 02:00] LABS: PTT 34.9 SECONDS (25.3-37.0)
[2017-10-28 02:07] LABS: ALBUMIN 3.7 g/dL (3.4-5.0); ANION GAP 15.7 MEQ/L (5-15); BILIRUBIN,TOTAL 1.4 mg/dL (0.2-1.0); Calcium 9.6 mg/dL (8.5-10.1); Carbon Dioxide 27.7 mEq/L (21-32); Creatinine 1 1.76 mg/dl (0.55-1.30); MAGNESIUM 2.2 mg/dL (1.8-2.4); Potassium 4.8 mEq/L (3.5-5.1); Total Protein 7.3 gm/dL (6.4-8.2)
[2017-10-28 02:08] LABS: Lactic Acid 2.2 (0.4-2.0)
[2017-10-28 02:17] LABS: T4 9.1 UG/DL (4.7-13.3); TSH, 3RD Generation 1.798 mIU/L (0.358-3.740)
[2017-10-28 03:16] LABS: INFLUENZA A NEGATIVE (NEGATIVE); INFLUENZA B NEGATIVE (NEGATIVE); RESPIRATORY SYNCTIAL VIRUS NEGATIVE (Negative)
[2017-10-28] MEDS ORDERED: Phenergan 25 MG INJ IV PRN (05:23)
[2017-10-28] MEDS ORDERED: PROVENTIL 2.5 MG/3 ML NEB IH PRN (05:23)
[2017-10-28] MEDS ORDERED: TYLENOL 325 MG PO PRN (05:23)
[2017-10-28] MEDS ORDERED: DUONEB 0.5-3 MG/3 ml Neb IH SCH (07:00)
[2017-10-28 07:14] LABS: Lactic Acid 2.2 (0.4-2.0)
[2017-10-28 10:52] LABS: ALBUMIN 3.3 g/dL (3.4-5.0); ANION GAP 14.1 MEQ/L (5-15); BILIRUBIN,TOTAL 1.5 mg/dL (0.2-1.0); Calcium 9.2 mg/dL (8.5-10.1); Carbon Dioxide 23.4 mEq/L (21-32); Creatinine 1 2.03 mg/dl (0.55-1.30); TROPONIN 0.055 ng/ml (0.000-0.056); Total Protein 6.6 gm/dL (6.4-8.2)
--- NOTE | 2017-10-28 10:53 | XRAY ---
Indication: Short of breath. Comparison: June 08, 2017. Portable chest again demonstrates borderline cardiomegaly with slight worsening bibasilar infiltrates/atelectasis/effusions favoring cardiac decompensation. Superimposed pneumonia not completely excluded. Stable CABG surgery, left-sided AICD, osteopenia, and bony degenerative changes.
[2017-10-28 11:00] LABS: BASOPHIL % 0.2 % (0.0-0.4); Basophil (Absolute #) 0.01 (0-0.4); Eosinophil % 0.2 % (0.00-5.0); Eosinophil (Absolute #) 0.01 (0-0.5); Granulocyte Absolute (ANC) 4.07 (1.4-6.9); Granulocytes % 63.5 % (36.0-66.0); Hematocrit 39.8 % (35-47); Hemoglobin 12.4 gm/dl (12.0-16.0); Lymphocytes % 26.6 % (24.0-44.0); Mean Cell Volume 91.7 fl (78-100); Mean Corpuscular Hemoglobin 28.6 pg (26-32); Mean Corpuscular Hgb Concent. 31.2 g/dl (32-36); Mean Platelet Volume 11.3 fl (6-9.5); Monocyte (Absolute #) 0.61 (0.0-1.3); Monocytes % 9.5 % (0.0-12.0); Platelet Count 160 K/mm3 (150-450); Red Blood Count 4.34 M/mm3 (4.1-5.4); Red Cell Distribution Width 18.5 % (11.5-14.0); White Blood Count 6.4 K/mm3 (4.0-10.5)
[2017-10-28] MEDS ORDERED: xanAX 0.25 MG PO PRN (11:20)
[2017-10-28] MEDS ORDERED: Nitrostat 0.4 MG Tablet SL PRN (11:20)
[2017-10-28] MEDS ORDERED: ULTRAM 50 MG PO PRN (11:20)
[2017-10-28] MEDS: Cardizem CD 240 MG PO SCH (11:41)
[2017-10-28] MEDS: Lexapro 10 MG PO SCH (11:41)
[2017-10-28] MEDS: SYNTHROID 125 MCG PO SCH (11:41)
[2017-10-28] MEDS: Klor Con 10 MEQ PO SCH (11:41)
[2017-10-28] MEDS: ECOTRIN 81 MG PO SCH (11:41)
[2017-10-28] MEDS: LASIX 20 MG PO SCH (11:41)
[2017-10-28] MEDS: COREG 12.5 MG PO SCH ×2 (11:48→21:16)
[2017-10-28] MEDS: ELIQUIS PO SCH ×2 (11:48→21:16)
[2017-10-28] MEDS ORDERED: ZOCOR 20MG PO SCH (22:00)
[2017-10-28] MEDS ORDERED: NON-FORMULARY ITEM (Atorvastatin Calcium 20 MG) PO SCH (22:00)
[2017-10-28] MEDS ORDERED: ROCEPHIN 1 Gm-D5w 50 ml Bag** 1 G/50 ML IVPB IV SCH (22:00)
[2017-10-28] MEDS ORDERED: Zithromax 500 MG/ 250 ML NaCl Premix 500 MG/250 ML IVPB IV SCH (22:00)
[2017-10-29 00:14] LABS: Appearance SLIGHTLY CLOUDY (CLEAR); Leukocyte Esterase 1+ (NEGATIVE); Nitrite NEGATIVE (NEGATIVE); Protein,Urine Dip TRACE (Negative)
[2017-10-29 00:15] LABS: Bacteria MODERATE /HPF (NEGATIVE); Bilirubin NEGATIVE (NEGATIVE); Blood 50 Ery/ul (0-5); Epithelial Cells FEW /HPF (FEW); Glucose NEGATIVE (NEGATIVE); Ketones SMALL (NEGATIVE); Urobilinogen NORMAL mg/dL (0-1); WBC 50-100 /HPF (0-5)
[2017-10-29] MEDS ORDERED: Lasix 40 MG PO SCH (06:00)
[2017-10-29 06:03] LABS: Hematocrit 33.9 % (35-47); Hemoglobin 10.6 gm/dl (12.0-16.0); Mean Cell Volume 90.9 fl (78-100); Mean Corpuscular Hemoglobin 28.4 pg (26-32); Mean Corpuscular Hgb Concent. 31.3 g/dl (32-36); Mean Platelet Volume 11.1 fl (6-9.5); Platelet Count 139 K/mm3 (150-450); Red Blood Count 3.73 M/mm3 (4.1-5.4); Red Cell Distribution Width 18.4 % (11.5-14.0); White Blood Count 5.6 K/mm3 (4.0-10.5)
[2017-10-29 06:18] LABS: ANION GAP 12.9 MEQ/L (5-15); Calcium 8.2 mg/dL (8.5-10.1); Carbon Dioxide 25.7 mEq/L (21-32); Creatinine 1 2.15 mg/dl (0.55-1.30); Potassium 4.7 mEq/L (3.5-5.1)
[2017-10-29] MEDS ORDERED: DUONEB 0.5-3 MG/3 ml Neb IH PRN (07:00)
[2017-10-29] MEDS ORDERED: NON-FORMULARY ITEM (Escitalopram Oxalate [Lexapro] 20 MG) PO SCH (10:00)
[2017-10-29] MEDS ORDERED: NON-FORMULARY ITEM (Aspirin [Aspirin] 81 MG) PO SCH (10:00)
[2017-10-29] MEDS: SYNTHROID 125 MCG PO SCH (10:27)
[2017-10-29] MEDS: ELIQUIS PO SCH (10:27)
[2017-10-29] MEDS: Cardizem CD 240 MG PO SCH (10:27)
[2017-10-29] MEDS: COREG 12.5 MG PO SCH (10:27)
[2017-10-29] MEDS: Lexapro 10 MG PO SCH (10:27)
[2017-10-29] MEDS: Klor Con 10 MEQ PO SCH (10:28)
[2017-10-29] MEDS: ECOTRIN 81 MG PO SCH (10:28)
--- NOTE | 2017-10-29 10:38 | PCM.DCORD ---
- Discharge Discharge Date: 10/29/17 Disposition: [facility] Prescriptions: New Smz/Tmp Ds Tablet [Bactrim Ds Tablet] 1 udtab PO BID #14 tablet Diltiazem HCl 240 mg [Cardizem CD 240 MG] 240 mg PO DAILY #30 cap Continue Apixaban [Eliquis] 2.5 mg PO BID Levothyroxine Sodium 125 mcg PO DAILY Carvedilol 12.5 mg [Coreg 12.5 mg] 12.5 mg PO BID Atorvastatin Calcium [Lipitor 20MG Tablet] 20 mg PO HS Aspirin 81 mg PO DAILY Alprazolam 0.25 mg [xanAX 0.25 MG] 0.25 mg PO Q8HPRN PRN PRN Reason: Anxiety Nitroglycerin 0.4 mg Tablet [Nitrostat 0.4 MG Tablet] 0.4 mg SL Q5MIN PRN MR X 3 PRN PRN Reason: Chest Pain Tramadol HCl 50 mg [Ultram 50 mg] 50 mg PO Q8HPRN PRN PRN Reason: Pain Furosemide 40 mg [Lasix 40 MG] 40 mg PO 0600 Potassium Chloride 10 Meq Tab* [Klor Con 10 MEQ] 10 meq PO DAILY Escitalopram Oxalate [Lexapro] 20 mg PO DAILY Furosemide 20 mg [Lasix 20 mg] 1 tab PO 1200 Albuterol/Ipratropium 3ml Neb* [DUONEB 0.5-3 MG/3 ml Neb] 0.5 - 2.5 mg IH Q4H PRN PRN PRN Reason: Shortness Of Breath Follow up with: SAUNDRA MARRERO [Family Provider] -
[2017-10-29 11:18] VITALS: BP 128/64; PULSE 66; O2SAT 97
[2017-10-29] MEDS: LASIX 20 MG PO SCH (13:01)
--- NOTE | 2017-10-30 09:48 | HP ---
CHIEF COMPLAINT: Shortness of breath, hot flashes, abdominal discomfort with vomiting and diarrhea. HISTORY OF PRESENT ILLNESS: The patient is an 82 year-old white female patient who [facility] with the above complaints. She was brought to the emergency room and found to be in atrial fibrillation with rapid ventricular response with also possibility of infiltrate versus atelectasis on chest x-ray. However, her influenza A/B and respiratory syncytial virus were negative and her white blood cell count was normal. She was placed empirically on Rocephin and Zithromax and given Cardizem 5 mg which did help bring her heart rate down but she was not placed on any additional Cardizem. PAST MEDICAL/SURGICAL HISTORY: Significant for internal defibrillator pacemaker, coronary artery bypass grafting, congestive heart failure, hypertension, chronic obstructive pulmonary disease, depression and anxiety. MEDICATIONS: Currently include Albuterol, Alprazolam, apixaban, aspirin, Atorvastatin, Carvedilol, Lexapro, Furosemide, levothyroxine, nitroglycerin, potassium, tramadol. She reports ALLERGIES: OLIVIA INHIBITORS. SOCIAL HISTORY: She has a 40 pack year history of smoking. PHYSICAL EXAMINATION: Revealed a frail, elderly white female currently in no obvious distress. Weight 47 kg, height 5'5" tall. Most recent vital signs showed temperature 97.3F, pulse 114, blood pressure 115/67 and respiratory rate 22. O2 saturation 93% on room air. HEENT: Normocephalic, atraumatic. Pupils equal round reactive to light. Extraocular movements intact. Oropharynx is pink and moist. NECK: Supple without lymphadenopathy, thyromegaly or JVD. CHEST: Clear to auscultation with good air movement bilaterally. ABDOMEN: Soft, nontender, nondistended without hepatosplenomegaly or masses. LAB DATA AND TESTS: Troponins appeared mildly elevated the most recent was 0.05. White blood cell count 8,300, hemoglobin 13.2, PLT count 182,000. No significant left shift. Lactic acid initially 2.2. International normalized ratio 1.63. Strep screen was negative. Respiratory syncytial virus and influenza swabs were negative as well. The patient's TSH was normal. T4 was normal. EKG revealed atrial fibrillation with rapid ventricular response and left bundle branch block pattern. ASSESSMENT: A patient with atrial fibrillation with rapid ventricular rate. She is being given Cardizem, will place her on Cardizem p.o., will continue her usual medications as listed above. She will be given Rocephin and Zithromax for the possibility of underlying pneumonia at this time while we wait for her rate to normalize. Hopefully she will be able to go back to the jail soon.
== END 2017-10-29 15:00 ==
LOC: ED 00:51 → MED SURG 04:34
PROVIDERS: ADMIT Family Medicine; ATTEND Family Medicine
DX: I48.91 Unspecified atrial fibrillation (principal); Z95.810 Presence of automatic (implantable) cardiac defibrillator; I25.810 Atherosclerosis of coronary artery bypass graft(s) without angina pectoris; I50.9 Heart failure, unspecified; I10 Essential (primary) hypertension; J44.9 Chronic obstructive pulmonary disease, unspecified; F41.8 Other specified anxiety disorders; N39.0 Urinary tract infection, site not specified; Z79.899 Other long term (current) drug therapy
CPT/HCPCS: 36000; 36415; 71045; 80048; 80053; 81000; 82150; 83605; 83690; 83735; 83880; 84436; 84443; 84484; 85025; 85027; 85610; 85730; 87040; 87070; 87086; 87430; 87631; 93005; 93268; 96360; 96361; 96365; 96374; 96375; 99285; G0378; J0456; J0696; J1940; J2550; A9270-GY

== ENCOUNTER 2017-11-02 04:35 | Observation (INO) | payer MEDICARE ==
[2017-11-02] MEDS ORDERED: Zithromax 500 MG/ 250 ML NaCl Premix 500 MG/250 ML IVPB IV STA (04:57)
[2017-11-02] MEDS ORDERED: PROVENTIL 2.5 MG/3 ML NEB IH ONE (04:57)
[2017-11-02] MEDS ORDERED: ROCEPHIN 1 Gm-D5w 50 ml Bag** 1 G/50 ML IVPB IV STA (04:57)
[2017-11-02] MEDS ORDERED: PROVENTIL Solution 2.5 MG/0.5 ML IH ONE (05:01)
[2017-11-02] MEDS ORDERED: Sodium Chloride 3 ML UD NEBULES IH ONE (05:01)
[2017-11-02] MEDS ORDERED: Zithromax 500 MG/ 250 ML NaCl Premix 500 MG/250 ML IVPB IV ONE (05:09)
[2017-11-02] MEDS ORDERED: ROCEPHIN 1 Gm-D5w 50 ml Bag** 1 G/50 ML IVPB IV ONE (05:09)
--- NOTE | 2017-11-02 05:14 | ERPHSYRPT ---
- History of Present Illness Time Seen by Provider: 11/02/17 04:55 Source: patient Patient Subjective Stated Complaint: c/o resp distress when she woke up Triage Nursing Assessment: c/o shortness of air, no fevers Physician History: PATIENT WITH A HISTORY OF COPD, CHF AND ATRIAL FIBRILLATION COMPLAINS OF WAKING UP FROM SLEEP WITH DIFFICULTY BREATHING AND SHORTNESS OF BREATH.UNSURE OF FEVER , DENIES CHEST PAIN. Timing/Duration: today Severity of Dyspnea-Max: severe Severity of Dyspnea-Current: severe Possible Cause: occasional episodes Modifying Factors: Improves With: activity, albuterol nebulizer Associated Symptoms: cough Allergies/Adverse Reactions: OLIVIA Inhibitors Allergy (Intermediate, Verified 10/28/17 02:03) Home Medications: Alprazolam 0.25 mg [xanAX 0.25 MG] 0.25 mg PO Q8HPRN PRN 03/30/17 [History ] Apixaban [Eliquis] 2.5 mg PO BID 03/30/17 [History] Aspirin 81 mg PO DAILY 03/30/17 [History] Atorvastatin Calcium [Lipitor 20MG Tablet] 20 mg PO HS 03/30/17 [History] Carvedilol 12.5 mg [Coreg 12.5 mg] 25 mg PO DAILY 03/30/17 [History] Levothyroxine Sodium 125 mcg PO DAILY 03/30/17 [History] Nitroglycerin 0.4 mg Tablet [Nitrostat 0.4 MG Tablet] 0.4 mg SL Q5MIN PRN MR X 3 PRN 03/30/17 [History] Tramadol HCl 50 mg [Ultram 50 mg] 50 mg PO Q8HPRN PRN 03/30/17 [History] Escitalopram Oxalate [Lexapro] 20 mg PO DAILY 06/08/17 [History] Furosemide 20 mg [Lasix 20 mg] 1 tab PO 1200 06/08/17 [History] Furosemide 40 mg [Lasix 40 MG] 40 mg PO 0600 06/08/17 [History] Potassium Chloride 10 Meq Tab* [Klor Con 10 MEQ] 10 meq PO DAILY 06/08/17 [ History] Albuterol/Ipratropium 3ml Neb* [DUONEB 0.5-3 MG/3 ml Neb] 0.5 - 2.5 mg IH Q4H PRN PRN 10/28/17 [History] Acetaminophen [Tylenol] 650 mg PO Q4HPRN PRN 11/02/17 [History] Hx Tetanus, Diphtheria Vaccination/Date Given: Yes Hx Influenza Vaccination/Date Given: No Hx Pneumococcal Vaccination/Date Given: No Immunizations Up to Date: Yes - Review of Systems Constitutional: No Fever, No Chills Eyes: No Symptoms Ears, Nose, & Throat: No Symptoms Respiratory: Cough, Dyspnea, Dyspnea on Exertion (DERAS) Cardiac: No Symptoms, No Chest Pain, No Edema, No Syncope Abdominal/Gastrointestinal: No Symptoms, No Abdominal Pain, No Nausea, No Vomiting, No Diarrhea Genitourinary Symptoms: No Symptoms, No Dysuria Musculoskeletal: No Symptoms, No Back Pain, No Neck Pain Skin: No Rash Neurological: No Dizziness, No Focal Weakness, No Sensory Changes Psychological: No Symptoms Endocrine: No Symptoms All Other Systems: Reviewed and Negative - Past Medical History Pertinent Past Medical History: Yes Neurological History: No Pertinent History ENT History: Cataracts Cardiac History: Congestive Heart Failure, Hypertension, Myocardial Infarction ( [place]) Respiratory History: CHF, COPD Endocrine Medical History: No Pertinent History Musculoskeletal History: Arthritis GI Medical History: No Pertinent History History: No Pertinent History Psycho-Social History: Anxiety, Depression Female Reproductive Disorders: No Pertinent History - Past Surgical History Past Surgical History: Yes Neuro Surgical History: No Pertinent History Cardiac: CABG, Internal Defibrillator, Pacemaker Respiratory: No Pertinent History Gastrointestinal: No Pertinent History Genitourinary: No Pertinent History Musculoskeletal: No Pertinent History Female Surgical History: No Pertinent History Other Surgical History: pt no longer has defibrillator. does have pacemaker - Social History Smoking Status: Former smoker How long have you smoked: 40 years Exposure to second hand smoke: No Alcohol Use: None Drug Use: none Patient Lives Alone: No Significant Family History: no pertinent family hx - Female History Hx Now: No - Nursing Vital Signs Nursing Vital Signs: Initial Vital Signs Temperature 97 F 11/02/17 04:42 Pulse Rate 120 H 11/02/17 04:42 Respiratory Rate 24 11/02/17 04:42 Blood Pressure 138/82 11/02/17 04:42 O2 Sat by Pulse Oximetry 94 L 11/02/17 04:42 Pain Scale Pain Intensity 0 - Physical Exam General Appearance: moderate distress Eye Exam: PERRL/EOMI Ears, Nose, Throat Exam: hearing grossly normal Neck Exam: normal inspection Respiratory Exam: diminished breath sounds, crackles/rales Cardiovascular/Chest Exam: tachycardia, irregular Abdominal/Gastrointestinal Exam: soft, normal bowel sounds Extremity Exam: non-tender, normal range of motion Peripheral Pulses Exam: carotid (R): 2+, carotid (L): 2+, femoral (R): 2+, femoral (L): 2+, dorsalis-pedis (R): 2+, dorsalis-pedis (L): 2+ Neurologic Exam: alert, oriented x 3 Skin Exam: normal color, warm Lymphatic Exam: adenopathy SpO2 Interpretation: borderline oxygenation SpO2: 93 Oxygen Delivery: Oxymizer - Course EKG Interpreted by Me: RATE, A-fib, Left Economy Deviation - Radiology Exams Chest X-ray Interpretation: Interpreted by me (RLL, RML AND LEFT BASILAR INFILTRATES) Ordered Tests: Active Orders 24 hr Category Date Time Status Up With Assistance ROUTINE Activity 11/02/17 06:47 Ordered Admission/Status Order ROUTINE Care 11/02/17 06:47 Ordered Clean Catch Urine Specimen STAT Care 11/02/17 04:57 Active Code Status Order ROUTINE Care 11/02/17 06:47 Ordered EKG-ER Only STAT Care 11/02/17 04:57 Active IV Care Q6H Care 11/02/17 06:47 Ordered IV Insertion STAT Care 11/02/17 04:57 Active Oxygen-ED Only NASAL CANNULA 2 lpm Care 11/02/17 04:57 Active Raciel Joss, Apply ROUTINE Care 11/02/17 06:47 Ordered Vital Signs Q4H Care 11/02/17 06:47 Ordered Weight,Daily 0600 Care 11/02/17 06:47 Ordered Regular Diet Diet 11/02/17 Breakfast Ordered CHEST 1 VIEW (PORTABLE) Stat Exams 11/02/17 04:58 Taken BLOOD CULTURE Stat Lab 11/02/17 05:10 Received CBC W DIFF Stat Lab 11/02/17 05:15 Completed CMP Stat Lab 11/02/17 06:41 Ordered Lactic Acid Stat Lab 11/02/17 05:45 Completed MAGNESIUM Stat Lab 11/02/17 05:15 Completed NT PRO BNP Stat Lab 11/02/17 05:15 Completed TROPONIN Q3H Lab 11/02/17 05:15 Completed TROPONIN Q3H Lab 11/02/17 08:00 Ordered TROPONIN Q3H Lab 11/02/17 11:00 Ordered TROPONIN Q3H Lab 11/02/17 14:00 Ordered TROPONIN Q3H Lab 11/02/17 17:00 Ordered UA W/RFX UR CULTURE Stat Lab 11/02/17 04:57 Ordered Oxygen NASAL CANNULA 2 lpm RT 11/02/17 06:47 Ordered Pulse Oximetry CONTINUOUS RT 11/02/17 06:51 Ordered Respiratory Nebulizer STAT RT 11/02/17 05:00 Completed Respiratory Therapy Consult ROUTINE RT 11/02/17 06:47 Ordered Transfer Order Routine Transfer 11/02/17 Ordered Medication Summary Generic Name Dose Route Start Last Admin Trade Name Fredavid PRN Reason Stop Dose Admin Sodium Chloride 1,000 mls @ 100 mls/hr 11/02/17 05:00 11/02/17 05:17 Sodium Chloride 0.9% 1000 Ml IV 12/02/17 04:59 100 mls/hr .Q10H ABHIJIT Administration Sodium Chloride 1,000 mls @ 500 mls/hr 11/02/17 05:27 11/02/17 06:20 Sodium Chloride 0.9% 1000 Ml IV 11/02/17 07:26 500 mls/hr .Q2H STA Administration Discontinued Medications Generic Name Dose Route Start Last Admin Trade Name Hitesh PRN Reason Stop Dose Admin Albuterol Sulfate 10 mg 11/02/17 04:57 11/02/17 05:04 Proventil 2.5 Mg/3 Ml Neb IH 11/02/17 04:58 10 mg STAT ONE Administration Albuterol Sulfate Confirm 11/02/17 05:01 Proventil Solution 2.5 Mg/0.5 Ml Administered 11/02/17 05:02 Dose 10 mg IH .STK-MED ONE Ceftriaxone Sodium/Dextrose 1 g in 50 mls @ 100 mls/hr 11/02/17 04:57 05:16 Rocephin 1 Gm-D5w 50 Ml Bag IV 11/02/17 05:26 100 mls/hr STAT STA Administration Azithromycin 500 mg in 250 mls @ 250 mls/hr 11/02/17 04:57 11/02/17 05:37 Zithromax 500 Mg/ 250 Ml Nacl Premix IV 11/02/17 05:56 250 mls/hr STAT STA Administration Azithromycin Confirm 11/02/17 05:09 Zithromax 500 Mg/ 250 Ml Nacl Premix Administered 11/02/17 05:10 Dose 500 mg in 250 mls @ ud IV .STK-MED ONE Ceftriaxone Sodium/Dextrose Confirm 11/02/17 05:09 Rocephin 1 Gm-D5w 50 Ml Bag Administered 11/02/17 05:10 Dose 1 g in 50 mls @ ud IV .STK-MED ONE Sodium Chloride Confirm 11/02/17 05:01 Sodium Chloride 3 Ml Ud Nebules Administered 11/02/17 05:02 Dose 6 ml IH .STK-MED ONE Lab/Rad Data: Laboratory Result Diagrams 11/02/17 05:15 Laboratory Results 11/02/17 11/02/17 11/02/17 Range/Units 05:45 05:15 05:15 WBC (4.0-10.5) K/mm3 RBC (4.1-5.4) M/mm3 Hgb (12.0-16.0) gm/dl Hct (35-47) % MCV (78-100) fl MCH (26-32) pg MCHC (32-36) g/dl RDW (11.5-14.0) % Plt Count (150-450) K/mm3 MPV (6-9.5) fl Gran % (36.0-66.0) % Lymphocytes % (24.0-44.0) % Monocytes % (0.0-12.0) % Eosinophils % (0.00-5.0) % Basophils % (0.0-0.4) % Basophils # (0-0.4) Lactic Acid 1.6 (0.4-2.0) Magnesium (1.8-2.4) mg/dL Troponin I 0.028 (0.000-0.056) ng/ml NT-Pro-B Natriuret Pep (0-450) pg/ml Influenza Type A Ag NEGATIVE (NEGATIVE) Influenza Type B Ag NEGATIVE (NEGATIVE) RSV (PCR) NEGATIVE (Negative) 11/02/17 11/02/17 Range/Units 05:15 05:15 WBC 8.5 (4.0-10.5) K/mm3 RBC 4.57 (4.1-5.4) M/mm3 Hgb 13.0 (12.0-16.0) gm/dl Hct 41.8 (35-47) % MCV 91.5 (78-100) fl MCH 28.4 (26-32) pg MCHC 31.1 L (32-36) g/dl RDW 18.6 H (11.5-14.0) % Plt Count 215 (150-450) K/mm3 MPV 10.3 H (6-9.5) fl Gran % 48.4 (36.0-66.0) % Lymphocytes % 37.5 (24.0-44.0) % Monocytes % 6.7 (0.0-12.0) % Eosinophils % 6.9 H (0.00-5.0) % Basophils % 0.5 (0.0-0.4) % Basophils # 0.04 (0-0.4) Lactic Acid (0.4-2.0) Magnesium 2.1 (1.8-2.4) mg/dL Troponin I (0.000-0.056) ng/ml NT-Pro-B Natriuret Pep 93895 H (0-450) pg/ml Influenza Type A Ag (NEGATIVE) Influenza Type B Ag (NEGATIVE) RSV (PCR) (Negative) - Progress Progress: re-examined, unchanged Progress Note: 11/02/17 05:20 CODE STATUS DNR, ADMINISTERED IV NORMAL SALINE 500ML/HR, ROCEPHIN 1GM , ZITHROMAX 500MG IVPB, RECEIVED SOLUMEDROL 125 AND DUONEB VIA EMS Blood Culture(s) Obtained: Yes Antibiotics given: Yes Discussed with DrAntonio: Felicia (DISCUSSED WITH DR Altaf WEST AT 0644 FOR ADMIT) - Departure Time of Disposition: 06:50 Departure Disposition: Observation Clinical Impression: PNEUMONIA, EXACERBATION COPD Condition: Stable Critical Care Time: No Referrals: MAURY WEST [Primary Care Provider] -
[2017-11-02] MEDS: Sodium Chloride 0.9% 1000 ML 1,000 ML IV SCH ×2 (05:17→17:32)
[2017-11-02 05:26] LABS: BASOPHIL % 0.5 % (0.0-0.4); Basophil (Absolute #) 0.04 (0-0.4); Eosinophil % 6.9 % (0.00-5.0); Eosinophil (Absolute #) 0.59 (0-0.5); Granulocyte Absolute (ANC) 4.12 (1.4-6.9); Granulocytes % 48.4 % (36.0-66.0); Hematocrit 41.8 % (35-47); Lymphocyte (Absolute #) 3.19 (1.0-4.6); Lymphocytes % 37.5 % (24.0-44.0); Mean Cell Volume 91.5 fl (78-100); Mean Corpuscular Hemoglobin 28.4 pg (26-32); Mean Corpuscular Hgb Concent. 31.1 g/dl (32-36); Mean Platelet Volume 10.3 fl (6-9.5); Monocyte (Absolute #) 0.57 (0.0-1.3); Monocytes % 6.7 % (0.0-12.0); Platelet Count 215 K/mm3 (150-450); Red Blood Count 4.57 M/mm3 (4.1-5.4); Red Cell Distribution Width 18.6 % (11.5-14.0); White Blood Count 8.5 K/mm3 (4.0-10.5)
[2017-11-02] MEDS ORDERED: Sodium Chloride 0.9% 1000 ML 1,000 ML IV STA (05:27)
[2017-11-02 06:04] LABS: MAGNESIUM 2.1 mg/dL (1.8-2.4)
[2017-11-02 06:06] LABS: INFLUENZA A NEGATIVE (NEGATIVE); INFLUENZA B NEGATIVE (NEGATIVE); RESPIRATORY SYNCTIAL VIRUS NEGATIVE (Negative)
[2017-11-02] MEDS ORDERED: Nitrostat 0.4 MG Tablet SL PRN ×2 (06:53→08:39)
[2017-11-02] MEDS ORDERED: Xopenex 1.25 MG/0.5 ML UD NEBULE IH PRN (06:55)
[2017-11-02 06:58] LABS: ALBUMIN 3.7 g/dL (3.4-5.0); ANION GAP 21.5 MEQ/L (5-15); BILIRUBIN,TOTAL 0.6 mg/dL (0.2-1.0); Calcium 8.9 mg/dL (8.5-10.1); Carbon Dioxide 23.4 mEq/L (21-32); Creatinine 1 1.98 mg/dl (0.55-1.30); Potassium 4.2 mEq/L (3.5-5.1); Total Protein 7.2 gm/dL (6.4-8.2)
[2017-11-02] MEDS ORDERED: DUONEB 0.5-3 MG/3 ml Neb IH SCH (07:00)
[2017-11-02 07:29] LABS: Appearance CLEAR (CLEAR); Bilirubin NEGATIVE (NEGATIVE); Glucose NEGATIVE (NEGATIVE); Ketones NEGATIVE (NEGATIVE); Leukocyte Esterase TRACE (NEGATIVE); Nitrite NEGATIVE (NEGATIVE); Protein,Urine Dip NEGATIVE (Negative); Specific Gravity 1.015 (1.005-1.025); Urobilinogen NORMAL mg/dL (0-1)
[2017-11-02 07:30] LABS: Bacteria FEW /HPF (NEGATIVE); Epithelial Cells MODERATE /HPF (FEW)
--- NOTE | 2017-11-02 08:35 | PCM.HP ---
History of Present Illness - Chief Complaint Chief Complaint: Shortness of Breath Date: 11/02/17 History of Present Illness: is a 82 year old female. who suffers from CHF and copd and chronic hypoxemic respiratory failure at [facility] now and woke up early this am with sudden shortness of breath her oxygen was turned up from 5L to 8L and she was given duoneb and alprazolam. She was telling the nurse she still couldn't get any air and the nurse called Dr. Liriano who advised she send her to the ED. She did not use her bipap last night. She is currently feeling tired but breathing much better after her treatments in the ED - Review of Systems Constitutional: Fatigue, No Fever, No Chills Eyes: No Symptoms Ears, Nose, & Throat: No Symptoms Respiratory: Cough, Short Of Breath Cardiac: No Chest Pain, No Edema, No Syncope Abdominal/Gastrointestinal: No Abdominal Pain, No Nausea, No Vomiting, No Diarrhea Genitourinary Symptoms: No Dysuria Musculoskeletal: No Back Pain, No Neck Pain Skin: No Rash Neurological: No Dizziness, No Focal Weakness, No Sensory Changes Psychological: No Symptoms Endocrine: No Symptoms Hematologic/Lymphatic: No Symptoms Immunological/Allergic: No Symptoms Medications & Allergies Home Medications: Home Medication List Alprazolam 0.25 mg [xanAX 0.25 MG] 0.25 mg PO Q8HPRN PRN 03/30/17 [ History Confirmed 11/02/17] Apixaban [Eliquis] 2.5 mg PO BID 03/30/17 [History Confirmed 11/02/17] Aspirin 81 mg PO DAILY 03/30/17 [History Confirmed 11/02/17] Atorvastatin Calcium [Lipitor 20MG Tablet] 20 mg PO HS 03/30/17 [History Confirmed 11/02/17] Carvedilol 12.5 mg [Coreg 12.5 mg] 25 mg PO DAILY 03/30/17 [History Confirmed 11/02/17] Levothyroxine Sodium 125 mcg PO DAILY 03/30/17 [History Confirmed 11/02/17] Nitroglycerin 0.4 mg Tablet [Nitrostat 0.4 MG Tablet] 0.4 mg SL Q5MIN PRN MR X 3 PRN 03/30/17 [History Confirmed 11/02/17] Tramadol HCl 50 mg [Ultram 50 mg] 50 mg PO Q8HPRN PRN 03/30/17 [History Confirmed 11/02/17] Escitalopram Oxalate [Lexapro] 20 mg PO DAILY 06/08/17 [History Confirmed ] Furosemide 20 mg [Lasix 20 mg] 1 tab PO 1200 06/08/17 [History Confirmed 11/02/17] Furosemide 40 mg [Lasix 40 MG] 40 mg PO 0600 06/08/17 [History Confirmed 11/02/17] Potassium Chloride 10 Meq Tab* [Klor Con 10 MEQ] 10 meq PO DAILY 06/08/17 [ History Confirmed 11/02/17] Albuterol/Ipratropium 3ml Neb* [DUONEB 0.5-3 MG/3 ml Neb] 0.5 - 2.5 mg IH Q4H PRN PRN 10/28/17 [History Confirmed 11/02/17] Diltiazem HCl 240 mg [Cardizem CD 240 MG] 240 mg PO DAILY #30 cap [Rx Confirmed 11/02/17] Smz/Tmp Ds Tablet [Bactrim Ds Tablet] 1 udtab PO BID #14 tablet 10/29/17 [ Rx Confirmed 11/02/17] Acetaminophen [Tylenol] 650 mg PO Q4HPRN PRN 11/02/17 [History Confirmed ] Allergies/Adverse Reactions: Allergies Allergy/AdvReac Type Severity Reaction Status Date / Time OLIVIA Inhibitors Allergy Intermediate Verified 10/28/17 02:03 - Past Medical History Past Medical History: Yes Neurological History: No Pertinent History ENT History: Cataracts Cardiac History: Congestive Heart Failure, Hypertension, Myocardial Infarction ( [place]) Respiratory History: CHF, COPD Endocrine Medical History: No Pertinent History Musculoskelatal History: Arthritis GI Medical History: No Pertinent History History: No Pertinent History Pyscho-Social History: Anxiety, Depression Reproductive Disorders: No Pertinent History - Female History Are you now?: No - Past Surgical History Past Surgical History: Yes Neuro Surgical History: No Pertinent History Cardiac History: CABG, Internal Defibrillator, Pacemaker Respiratory Surgery: No Pertinent History GI Surgical History: No Pertinent History Genitourinary Surgical Hx: No Pertinent History Musculskeletal Surgical Hx: No Pertinent History Female Surgical History: No Pertinent History Other Surgical History: pt no longer has defibrillator. does have pacemaker - Social History Smoking Status: Former smoker How long have you smoked: 40 years Exposure to second hand smoke: No Alcohol: None Drug Use: none Significant Family History: no pertinent family hx - Physical Exam Vital Signs: Vital Signs - 24 hr Temp Pulse Resp BP Pulse Ox 11/02/17 07:14 97.7 F 78 20 134/60 95 11/02/17 06:57 93 L 11/02/17 06:47 97.7 F 78 20 134/60 95 11/02/17 06:25 76 20 111/63 94 L 11/02/17 05:36 87 20 126/69 95 11/02/17 05:14 98 H 22 90 L 11/02/17 04:58 24 93 L 11/02/17 04:42 97 F 120 H 24 138/82 94 L Oxygen-Last 24 hours O2 Percentage 2 Liters = 28% O2 Percentage 2 Liters = 28% O2 Percentage 5 Liters = 40% O2 Percentage 100% General Appearance: no apparent distress, alert, thin Neurologic Exam: oriented x 3, cooperative Eye Exam: pale conjunctivae, No scleral icterus Ears, Nose, Throat Exam: moist mucous membranes Neck Exam: non-tender, supple Respiratory Exam: diminished breath sounds, crackles/rales, wheezing, No respiratory distress Cardiovascular Exam: murmur, tachycardia (rate 100) Gastrointestinal/Abdomen Exam: soft, normal bowel sounds, No tenderness Back Exam: normal inspection, No CVA tenderness Extremity Exam: normal inspection, No calf tenderness, No pedal edema Skin Exam: warm, dry Assessment/Plan (1) Pneumonia Current Visit: Yes Status: Acute Assessment & Plan: continue the ceftriaxone and azithromycin duonebs steroids with the copd bipap while asleep chf appears stable currently with severe disease and LVEF of 10 to 15% continue eliquis, beta casi, stop the bactrim Code(s): J18.9 - PNEUMONIA, UNSPECIFIED ORGANISM (2) CHF (congestive heart failure) Current Visit: Yes Status: Chronic Qualifiers: Congestive heart failure type: systolic Congestive heart failure chronicity : chronic Qualified Code(s): I50.22 - Chronic systolic (congestive) heart failure Code(s): I50.9 - HEART FAILURE, UNSPECIFIED (3) Atrial fibrillation Current Visit: Yes Status: Chronic Qualifiers: Atrial fibrillation type: chronic Code(s): I48.91 - UNSPECIFIED ATRIAL FIBRILLATION (4) COPD (chronic obstructive pulmonary disease) Current Visit: Yes Status: Chronic (5) Chronic hypoxemic respiratory failure Current Visit: Yes Status: Acute (6) Chronic kidney disease Current Visit: Yes Status: Acute Qualifiers: Chronic kidney disease stage: stage 4 (severe) Qualified Code(s): N18.4 - Chronic kidney disease, stage 4 (severe) Code(s): N18.9 - CHRONIC KIDNEY DISEASE, UNSPECIFIED
[2017-11-02] MEDS ORDERED: xanAX 0.25 MG PO PRN (08:39)
[2017-11-02] MEDS ORDERED: ULTRAM 50 MG PO PRN (08:39)
--- NOTE | 2017-11-02 09:03 | XRAY ---
Indication: Dyspnea. Comparison: October 28, 2017. Portable chest demonstrates stable mild bibasilar infiltrates/atelectasis/effusions with new bilateral perihilar interstitial alveolar opacities, right greater than left. Heart remains borderline enlarged again with left-sided AICD.
[2017-11-02] MEDS ORDERED: NON-FORMULARY ITEM (Aspirin [Aspirin] 81 MG) PO SCH (10:00)
[2017-11-02] MEDS ORDERED: NON-FORMULARY ITEM (Escitalopram Oxalate [Lexapro] 20 MG) PO SCH (10:00)
[2017-11-02] MEDS: COREG 12.5 MG PO SCH ×2 (11:23→21:17)
[2017-11-02] MEDS: Cardizem CD 240 MG PO SCH (11:23)
[2017-11-02] MEDS: Lexapro 10 MG PO SCH (11:23)
[2017-11-02] MEDS: ECOTRIN 81 MG PO SCH (11:24)
[2017-11-02] MEDS: SYNTHROID 125 MCG PO SCH (11:24)
[2017-11-02] MEDS: ELIQUIS PO SCH ×2 (11:24→21:18)
[2017-11-02] MEDS: Klor Con 10 MEQ PO SCH (11:24)
[2017-11-02] MEDS: solu-MEDROL 125 MG IV SCH ×3 (11:35→23:50)
[2017-11-02] MEDS: Lasix 40 MG PO SCH (11:36)
[2017-11-02] MEDS ORDERED: DUONEB 0.5-3 MG/3 ml Neb IH PRN (13:27)
[2017-11-02] MEDS ORDERED: LASIX 20 MG PO SCH (15:00)
[2017-11-02] MEDS ORDERED: TYLENOL 325 MG PO PRN (16:27)
[2017-11-02] MEDS ORDERED: ROCEPHIN 1 Gm-D5w 50 ml Bag** 1 G/50 ML IVPB IV SCH (22:00)
[2017-11-02] MEDS ORDERED: Zithromax 250 MG TABLET PO SCH (22:00)
[2017-11-02] MEDS ORDERED: NON-FORMULARY ITEM (Atorvastatin Calcium 20 MG) PO SCH (22:00)
[2017-11-02] MEDS ORDERED: ZOCOR 20MG PO SCH (22:00)
[2017-11-02] MEDS ORDERED: Zithromax 500 MG/ 250 ML NaCl Premix 500 MG/250 ML IVPB IV SCH (22:00)
[2017-11-03] MEDS: Sodium Chloride 0.9% 1000 ML 1,000 ML IV SCH (04:06)
[2017-11-03] MEDS: Lasix 40 MG PO SCH (05:46)
[2017-11-03] MEDS: solu-MEDROL 125 MG IV SCH (05:46)
[2017-11-03] MEDS ORDERED: Lasix 40 MG/4 ML IV ONE (08:04)
[2017-11-03] MEDS ORDERED: PROTONIX 40 MG IV IV ONE (08:04)
--- NOTE | 2017-11-03 08:04 | PCM.DS ---
Discharge Summary Date of Admission: 11/02/17 07:04 Admitting Physician: MAURY WEST Primary Care Provider: MAURY WEST Allergies Allergies OLIVIA Inhibitors Allergy (Intermediate, Verified 10/28/17 02:03) Hospital Summary - Hospital Course Hospital Course: Ms. Ignacio lives at [facility] and is to wear bipap at night but often doesn't. The morning of admission she awoke at 3 am very short of breath. SHe was given a breathing treatment by the nurse at [facility] but it didn' t help. SHe turned up her oxygen to 8L without relief of sob. She discussed the patient with Dr. Liriano via telephone who advised to send her to the ED. In ED she was given treatment and steroids and abx for pneumonia and copd exacerbation and her symptoms improved and she was on her chronic 5L nc O2. Her steroids were weaned and continued on antibiotics. SHe did initially get fluids on day 1 these were stopped and she was given 1 IV dose of lasix. She was breathing much more comfortably and only complaint was of fatigue. She was discharged back to [facility] with instructions for bipap at night. - Vitals & Intake/Output Vital Signs: Vital Signs Temperature 97.7 F 11/03/17 07:35 Pulse Rate 66 11/03/17 07:35 Respiratory Rate 14 11/03/17 07:35 Blood Pressure 130/58 11/03/17 07:35 O2 Sat by Pulse Oximetry 95 11/03/17 07:35 Oxygen-Last Documented O2 Percentage 5 Liters = 40% Intake & Output: Intake & Output 10/31/17 11/01/17 11/02/17 11/03/17 11:59 11:59 11:59 11:59 Intake Total 360 3046 Output Total 650 Balance 360 2396 Weight 50.1 kg - Lab Result Diagrams: 11/02/17 05:15 11/02/17 05:30 Lab Results-Last 24 Hrs: Lab Results-Last 24 Hours 11/02/17 11/02/17 11/02/17 Range/Units 08:10 11:13 14:14 Troponin I 0.052 0.046 0.044 (0.000-0.056) ng/ml - Procedures and Test Procedures and Tests throughout Hospitalization: Therapy Orders & Screens 11/02/17 11:45 Respiratory Nebulizer UD Comment: Diagnosis: Shortness of Breath 11/02/17 11:46 Oxygen OXYMIZER-LPM 5% Comment: Diagnosis: Shortness of Breath Discharge Exam General Appearance: alert, thin Neurologic Exam: cooperative Skin Exam: warm, dry Ears, Nose, Throat Exam: dry mucous membranes Neck Exam: non-tender, supple Respiratory Exam: prolonged expirations, crackles/rales, other (bibasilar rales) , No rhonchi, No wheezing Cardiovascular Exam: murmur Gastrointestinal/Abdomen Exam: soft, normal bowel sounds, No tenderness Extremity Exam: normal inspection, No calf tenderness, No pedal edema Final Diagnosis/Problem List - Final Discharge Diagnosis/Problem (1) Pneumonia Status: Acute (2) CHF (congestive heart failure) Status: Chronic (3) Atrial fibrillation Status: Chronic (4) COPD (chronic obstructive pulmonary disease) Status: Chronic (5) Chronic hypoxemic respiratory failure Status: Acute (6) Chronic kidney disease Status: Acute - Discharge Discharge Date: 11/03/17 Disposition: DC TO [facility] Condition: Stable Prescriptions: New Alprazolam 0.5 mg PO Q6H PRN #56 tablet PRN Reason: Anxiety Prednisone 10 mg [Deltasone 10 mg] 10 mg PO DAILY #24 tablet PANTOPRAZOLE 40 mg Tablet [Protonix 40MG Tablet] 40 mg PO QAM #30 tab Ceftriaxone 1 GM/50 ML PREMIX* [ROCEPHIN 1 Gm-D5w 50 ml Bag] 1 g IV Q24H22 #5 iv piggy Azithromycin 250 mg [Zithromax 250 MG TABLET] 250 mg PO QPM #3 tablet Continue Apixaban [Eliquis] 2.5 mg PO BID Levothyroxine Sodium 125 mcg PO DAILY Carvedilol 12.5 mg [Coreg 12.5 mg] 25 mg PO DAILY Atorvastatin Calcium [Lipitor 20MG Tablet] 20 mg PO HS Aspirin 81 mg PO DAILY Nitroglycerin 0.4 mg Tablet [Nitrostat 0.4 MG Tablet] 0.4 mg SL Q5MIN PRN MR X 3 PRN PRN Reason: Chest Pain Tramadol HCl 50 mg [Ultram 50 mg] 50 mg PO Q8HPRN PRN PRN Reason: Pain Furosemide 40 mg [Lasix 40 MG] 40 mg PO 0600 Potassium Chloride 10 Meq Tab* [Klor Con 10 MEQ] 10 meq PO DAILY Escitalopram Oxalate [Lexapro] 20 mg PO DAILY Furosemide 20 mg [Lasix 20 mg] 1 tab PO 1200 Albuterol/Ipratropium 3ml Neb* [DUONEB 0.5-3 MG/3 ml Neb] 0.5 - 2.5 mg IH Q4H PRN PRN PRN Reason: Shortness Of Breath Diltiazem HCl 240 mg [Cardizem CD 240 MG] 240 mg PO DAILY #30 cap Acetaminophen [Tylenol] 650 mg PO Q4HPRN PRN PRN Reason: discomfort Discontinued Alprazolam 0.25 mg [xanAX 0.25 MG] 0.25 mg PO Q8HPRN PRN PRN Reason: Anxiety Smz/Tmp Ds Tablet [Bactrim Ds Tablet] 1 udtab PO BID #14 tablet Additional Instructions: Leave IV in place for the IV infusion for 5 days D/C IV after infusions of Rocephin complete Use bipap with current ECF settings at night and prn Follow up with: MAURY WEST [Primary Care Provider] -
[2017-11-03] MEDS ORDERED: GI COCKTAIL 45 ML (Maalox/Lidocaine) PO ONE (08:05)
[2017-11-03] MEDS ORDERED: Sodium Chloride 0.9% 10 ML FLUSH Syringe IV PRN (08:06)
[2017-11-03] MEDS: ECOTRIN 81 MG PO SCH (08:48)
[2017-11-03] MEDS: Cardizem CD 240 MG PO SCH (08:48)
[2017-11-03] MEDS: COREG 12.5 MG PO SCH (08:48)
[2017-11-03] MEDS: SYNTHROID 125 MCG PO SCH (08:48)
[2017-11-03] MEDS: ELIQUIS PO SCH (08:48)
[2017-11-03] MEDS: Lexapro 10 MG PO SCH (08:49)
[2017-11-03] MEDS: Klor Con 10 MEQ PO SCH (08:49)
[2017-11-03 11:21] VITALS: BP 128/56; O2SAT 96
[2017-11-03 11:36] VITALS: PULSE 62
[2017-11-03] MEDS ORDERED: Sodium Chloride 0.9% 10 ML FLUSH Syringe IV SCH (14:00)
== END 2017-11-03 12:35 | disposition home or self-care (01) ==
LOC: ED 04:35 → MED SURG 07:04
PROVIDERS: ADMIT Family Medicine; ATTEND Family Medicine
DX: J18.9 Pneumonia, unspecified organism (principal); I50.22 Chronic systolic (congestive) heart failure; I48.91 Unspecified atrial fibrillation; J44.9 Chronic obstructive pulmonary disease, unspecified; J96.11 Chronic respiratory failure with hypoxia; I12.9 Hypertensive chronic kidney disease with stage 1 through stage 4 chronic kidney disease, or unspecified chronic kidney disease; N18.9 Chronic kidney disease, unspecified; M19.90 Unspecified osteoarthritis, unspecified site; Z79.01 Long term (current) use of anticoagulants; Z79.899 Other long term (current) drug therapy; F41.8 Other specified anxiety disorders; Z95.810 Presence of automatic (implantable) cardiac defibrillator; Z72.0 Tobacco use
CPT/HCPCS: 36000; 36415; 71045; 80053; 81000; 83605; 83735; 83880; 84484; 85025; 87040; 87086; 87631; 93005; 93268; 94640; 94760; 96360; 96361; 99285; G0378; J0456; J0696; J1940; J2930; A9270-GY

== ENCOUNTER 2017-12-17 21:18 | Inpatient (IN) | payer MEDICARE ==
[2017-12-17] MEDS ORDERED: CARDIZEM DRIP 100 MG/100 ML D5W 100 ML IV ONE (21:27)
[2017-12-17] MEDS ORDERED: Cardizem IV 50 MG/10 ML IV ONE ×2 (21:28→21:33)
[2017-12-17] MEDS ORDERED: CARDIZEM DRIP 100 MG/100 ML D5W 100 ML IV PRN (21:29)
[2017-12-17] MEDS ORDERED: Sodium Chloride 0.9% 1000 ML 1,000 ML IV SCH (21:30)
[2017-12-17 21:38] LABS: BASOPHIL % 0.3 % (0.0-0.4); Basophil (Absolute #) 0.02 (0-0.4); Eosinophil % 2.3 % (0.00-5.0); Eosinophil (Absolute #) 0.14 (0-0.5); Granulocyte Absolute (ANC) 3.36 (1.4-6.9); Granulocytes % 55.6 % (36.0-66.0); Hematocrit 32.7 % (35-47); Hemoglobin 10.6 gm/dl (12.0-16.0); Lymphocyte (Absolute #) 1.95 (1.0-4.6); Lymphocytes % 32.2 % (24.0-44.0); Mean Cell Volume 94.2 fl (78-100); Mean Corpuscular Hemoglobin 30.5 pg (26-32); Mean Corpuscular Hgb Concent. 32.4 g/dl (32-36); Mean Platelet Volume 10.6 fl (6-9.5); Monocyte (Absolute #) 0.58 (0.0-1.3); Monocytes % 9.6 % (0.0-12.0); Platelet Count 128 K/mm3 (150-450); Red Blood Count 3.47 M/mm3 (4.1-5.4); Red Cell Distribution Width 18.8 % (11.5-14.0); White Blood Count 6.1 K/mm3 (4.0-10.5)
[2017-12-17] MEDS ORDERED: Sodium Chloride 0.9% 1000 ML 1,000 ML ONE (21:44)
[2017-12-17 21:54] LABS: INR 2.01 (0.8-3.0)
[2017-12-17 21:58] LABS: ALBUMIN 3.6 g/dL (3.5-5.0); ANION GAP 15.1 MEQ/L (5-15); BILIRUBIN,TOTAL 1.3 mg/dL (0.2-1.3); Calcium 9.2 mg/dL (8.4-10.2); Creatinine 1 1.51 mg/dL (0.52-1.04); Potassium 4.6 mmol/L (3.5-5.1); Total Protein 6.3 g/dL (6.3-8.2)
[2017-12-17 22:15] LABS: TROPONIN 0.041 ng/mL (0.000-0.034)
--- NOTE | 2017-12-17 22:29 | ERPHSYRPT ---
- History of Present Illness Time Seen by Provider: 12/17/17 21:25 Source: patient, retirement records Exam Limitations: clinical condition Patient Subjective Stated Complaint: shortness of breath Triage Nursing Assessment: Pt A&O x3, O2 88% on arrival on room air, Physician History: PATIENT WITH A HISTORY OF ATRIAL FIBRILLATION, COPD, CHF REFERRED FROM RETIREMENT FOR EVALUATION OF COMPLAINS OF DYSPNEA, PALPITATIONS. DENIES CHEST PAIN OR COUGH. Timing/Duration: today, yesterday Chest Pain Radiation: no radiation Severity of Pain-Max: none Severity of Pain-Current: none Modifying Factors: Improves With: movement Nitro Today/Relief: no nitro taken today Aspirin Treatment Today: 81 mg x 1 Associated Symptoms: shortness of breath, other (PALPITATIONS) Prior Chest Pain/Cardiac Workup: recent hospitalization Allergies/Adverse Reactions: OLIVIA Inhibitors Allergy (Intermediate, Verified 10/28/17 02:03) Home Medications: Apixaban [Eliquis] 2.5 mg PO BID 03/30/17 [History] Aspirin 81 mg PO DAILY 03/30/17 [History] Atorvastatin Calcium [Lipitor 20MG Tablet] 20 mg PO HS 03/30/17 [History] Carvedilol 12.5 mg [Coreg 12.5 mg] 25 mg PO DAILY 03/30/17 [History] Levothyroxine Sodium 125 mcg PO DAILY 03/30/17 [History] Nitroglycerin 0.4 mg Tablet [Nitrostat 0.4 MG Tablet] 0.4 mg SL Q5MIN PRN MR X 3 PRN 03/30/17 [History] Tramadol HCl 50 mg [Ultram 50 mg] 50 mg PO Q8HPRN PRN 03/30/17 [History] Escitalopram Oxalate [Lexapro] 20 mg PO DAILY 06/08/17 [History] Furosemide 20 mg [Lasix 20 mg] 1 tab PO 1200 06/08/17 [History] Furosemide 40 mg [Lasix 40 MG] 40 mg PO 0600 06/08/17 [History] Potassium Chloride 10 Meq Tab* [Klor Con 10 MEQ] 10 meq PO DAILY 06/08/17 [ History] Albuterol/Ipratropium 3ml Neb* [DUONEB 0.5-3 MG/3 ml Neb] 0.5 - 2.5 mg IH Q4H PRN PRN 10/28/17 [History] Acetaminophen [Tylenol] 650 mg PO Q4HPRN PRN 11/02/17 [History] Hx Tetanus, Diphtheria Vaccination/Date Given: Yes Hx Influenza Vaccination/Date Given: No Hx Pneumococcal Vaccination/Date Given: No - Review of Systems Constitutional: No Symptoms, No Fever, No Chills Eyes: No Symptoms Ears, Nose, & Throat: No Symptoms Respiratory: Dyspnea, Dyspnea on Exertion (DERAS), No Cough Cardiac: Palpitations, No Chest Pain, No Edema, No Syncope Abdominal/Gastrointestinal: No Symptoms, No Abdominal Pain, No Nausea, No Vomiting, No Diarrhea Genitourinary Symptoms: No Symptoms, No Dysuria Musculoskeletal: No Symptoms, No Back Pain, No Neck Pain Skin: No Rash Neurological: No Symptoms, No Dizziness, No Focal Weakness, No Sensory Changes Psychological: No Symptoms Endocrine: No Symptoms All Other Systems: Reviewed and Negative - Past Medical History Pertinent Past Medical History: Yes Neurological History: No Pertinent History ENT History: Cataracts Cardiac History: Congestive Heart Failure, Hypertension, Myocardial Infarction ( [place]) Respiratory History: CHF, COPD Endocrine Medical History: No Pertinent History Musculoskeletal History: Arthritis GI Medical History: No Pertinent History History: No Pertinent History Psycho-Social History: Anxiety, Depression Female Reproductive Disorders: No Pertinent History Other Medical History: A fib - Past Surgical History Past Surgical History: Yes Neuro Surgical History: No Pertinent History Cardiac: CABG, Internal Defibrillator, Pacemaker Respiratory: No Pertinent History Gastrointestinal: No Pertinent History Genitourinary: No Pertinent History Musculoskeletal: No Pertinent History Female Surgical History: No Pertinent History Other Surgical History: pt no longer has defibrillator. does have pacemaker - Social History Smoking Status: Former smoker How long have you smoked: 40 years Exposure to second hand smoke: No Alcohol Use: None Drug Use: none Patient Lives Alone: No Significant Family History: no pertinent family hx - Nursing Vital Signs Nursing Vital Signs: Initial Vital Signs Temperature 98.3 F 12/17/17 21:19 Pulse Rate 127 H 12/17/17 21:19 Respiratory Rate 29 H 12/17/17 21:19 Blood Pressure 122/84 12/17/17 21:19 O2 Sat by Pulse Oximetry 88 L 12/17/17 21:19 Pain Scale Pain Intensity 0 - Physical Exam General Appearance: no apparent distress, alert Eye Exam: PERRL/EOMI, eyes nml inspection Ears, Nose, Throat Exam: normal ENT inspection, moist mucous membranes Neck Exam: normal inspection, non-tender, supple Respiratory Exam: diminished breath sounds, crackles/rales (AT BASES, NO WHEEZES), No respiratory distress Cardiovascular Exam: normal heart sounds, tachycardia, irregular, No edema Gastrointestinal/Abdomen Exam: soft, normal bowel sounds (NONTENDER), No tenderness, No mass Back Exam: normal inspection, No CVA tenderness, No vertebral tenderness Extremity Exam: normal inspection, normal range of motion, other (NO PITTING EDEMA) Neurologic Exam: alert, oriented x 3, cooperative, normal mood/affect, nml cerebellar function, sensation nml, No motor deficits Skin Exam: normal color, warm, dry Lymphatic Exam: No adenopathy SpO2 Interpretation: borderline oxygenation SpO2: 90 Oxygen Delivery: Room Air - Course EKG Interpreted by Me: RATE, A-fib (ATRIL FIBRILLATION RVR [id number]) - Radiology Exams Chest X-ray Interpretation: Interpreted by me (NO CHANGE IN MILD CARDIOMEGALY, RIGHT LOWER INFILTRATE AND PLEURAL EFFUSION) Ordered Tests: Active Orders 24 hr Category Date Time Status Post Tensioning Ironworker STAT Care 12/17/17 21:27 Active IV Insertion STAT Care 12/17/17 21:26 Active Oxygen-ED Only NASAL CANNULA 3 lpm Care 12/17/17 21:26 Active CHEST 1 VIEW (PORTABLE) Stat Exams 12/17/17 21:27 Taken BLOOD CULTURE Stat Lab 12/17/17 22:55 Received CBC W DIFF Stat Lab 12/17/17 21:34 Completed CMP Stat Lab 12/17/17 21:34 Completed MAGNESIUM Routine Lab 12/17/17 21:34 Completed NT PRO BNP Stat Lab 12/17/17 21:34 Completed PROTIME WITH INR Stat Lab 12/17/17 21:34 Completed TROPONIN Q3H Lab 12/17/17 21:34 Completed TROPONIN Q3H Lab 12/18/17 00:30 Ordered TROPONIN Q3H Lab 12/18/17 03:30 Ordered TROPONIN Q3H Lab 12/18/17 06:30 Ordered TROPONIN Q3H Lab 12/18/17 09:30 Ordered Transfer Order Routine Transfer 12/17/17 Ordered Medication Summary Generic Name Dose Route Start Last Admin Trade Name Freq PRN Reason Stop Dose Admin Furosemide 20 mg 12/18/17 23:08 12/17/17 23:17 Lasix 20 Mg/2 Ml IV 12/18/17 23:09 20 mg STAT ONE Administration Sodium Chloride 1,000 mls @ 10 mls/hr 12/17/17 21:30 12/17/17 21:49 Sodium Chloride 0.9% 1000 Ml IV 01/16/18 21:29 10 mls/hr .Q24H ABHIJIT Administration Diltiazem HCl 100 mls @ 10 mls/hr 12/17/17 21:29 12/17/17 21:42 Cardizem Drip 100 Mg/100 Ml D5w IV 01/16/18 21:28 10 mg/hr .Q10H PRN 10 mls/hr HEART RATE/ A-FIB Administration Protocol 10 MG/HR Discontinued Medications Generic Name Dose Route Start Last Admin Trade Name Freq PRN Reason Stop Dose Admin Diltiazem HCl 5 mg 12/17/17 21:28 12/17/17 21:41 Cardizem Iv 50 Mg/10 Ml IV 12/17/17 21:29 5 mg STAT ONE Administration Diltiazem HCl Confirm 12/17/17 21:33 Cardizem Iv 50 Mg/10 Ml Administered 12/17/17 21:34 Dose 50 mg IV .STK-MED ONE Furosemide Confirm 12/17/17 23:11 Lasix 40 Mg/4 Ml Administered 12/17/17 23:12 Dose 40 mg .ROUTE .STK-MED ONE Diltiazem HCl Confirm 12/17/17 21:27 Cardizem Drip 100 Mg/100 Ml D5w Administered 12/17/17 21:28 Dose 100 mls @ ud IV .STK-MED ONE Ceftriaxone Sodium/Dextrose 1 g in 50 mls @ 100 mls/hr 12/17/17 22:37 22:56 Rocephin 1 Gm-D5w 50 Ml Bag IV 12/17/17 23:06 100 mls/hr STAT STA Administration Ceftriaxone Sodium/Dextrose Confirm 12/17/17 22:42 Rocephin 1 Gm-D5w 50 Ml Bag Administered 12/17/17 22:43 Dose 1 g in 50 mls @ ud IV .STK-MED ONE Lab/Rad Data: Laboratory Result Diagrams 12/17/17 21:34 12/17/17 21:34 Laboratory Results 12/17/17 12/17/17 12/17/17 Range/Units 21:34 21:34 21:34 WBC (4.0-10.5) K/mm3 RBC (4.1-5.4) M/mm3 Hgb (12.0-16.0) gm/dl Hct (35-47) % MCV (78-100) fl MCH (26-32) pg MCHC (32-36) g/dl RDW (11.5-14.0) % Plt Count (150-450) K/mm3 MPV (6-9.5) fl Gran % (36.0-66.0) % Eos # (Auto) (0-0.5) Absolute Lymphs (auto) (1.0-4.6) Absolute Monos (auto) (0.0-1.3) Lymphocytes % (24.0-44.0) % Monocytes % (0.0-12.0) % Eosinophils % (0.00-5.0) % Basophils % (0.0-0.4) % Absolute Granulocytes (1.4-6.9) Basophils # (0-0.4) INR 2.01 (0.8-3.0) Sodium 139 (137-145) mmol/L Potassium 4.6 (3.5-5.1) mmol/L Chloride 102 (98-107) mmol/L Carbon Dioxide 27 (22-30) mmol/L Anion Gap 15.1 H (5-15) MEQ/L BUN 43 H (7-17) mg/dL Creatinine 1.51 H (0.52-1.04) mg/dL Estimated GFR 35 ML/MIN Glucose 141 H (74-106) mg/dL Calcium 9.2 (8.4-10.2) mg/dL Magnesium 1.7 (1.6-2.3) mg/dL Total Bilirubin 1.30 (0.2-1.3) mg/dL AST 190 H (14-36) U/L ALT 143 H (0-35) U/L Alkaline Phosphatase 157 H (38-126) U/L Troponin I 0.041 H* (0.000-0.034) ng/mL NT-Pro-B Natriuret Pep 28849 H (0-1800) pg/mL Serum Total Protein 6.3 (6.3-8.2) g/dL Albumin 3.6 (3.5-5.0) g/dL 12/17/17 Range/Units 21:34 WBC 6.1 (4.0-10.5) K/mm3 RBC 3.47 L (4.1-5.4) M/mm3 Hgb 10.6 L (12.0-16.0) gm/dl Hct 32.7 L (35-47) % MCV 94.2 (78-100) fl MCH 30.5 (26-32) pg MCHC 32.4 (32-36) g/dl RDW 18.8 H (11.5-14.0) % Plt Count 128 L (150-450) K/mm3 MPV 10.6 H (6-9.5) fl Gran % 55.6 (36.0-66.0) % Eos # (Auto) 0.14 (0-0.5) Absolute Lymphs (auto) 1.95 (1.0-4.6) Absolute Monos (auto) 0.58 (0.0-1.3) Lymphocytes % 32.2 (24.0-44.0) % Monocytes % 9.6 (0.0-12.0) % Eosinophils % 2.3 (0.00-5.0) % Basophils % 0.3 (0.0-0.4) % Absolute Granulocytes 3.36 (1.4-6.9) Basophils # 0.02 (0-0.4) INR (0.8-3.0) Sodium (137-145) mmol/L Potassium (3.5-5.1) mmol/L Chloride (98-107) mmol/L Carbon Dioxide (22-30) mmol/L Anion Gap (5-15) MEQ/L BUN (7-17) mg/dL Creatinine (0.52-1.04) mg/dL Estimated GFR ML/MIN Glucose (74-106) mg/dL Calcium (8.4-10.2) mg/dL Magnesium (1.6-2.3) mg/dL Total Bilirubin (0.2-1.3) mg/dL AST (14-36) U/L ALT (0-35) U/L Alkaline Phosphatase (38-126) U/L Troponin I (0.000-0.034) ng/mL NT-Pro-B Natriuret Pep (0-1800) pg/mL Serum Total Protein (6.3-8.2) g/dL Albumin (3.5-5.0) g/dL - Progress Progress: re-examined, unchanged Progress Note: 12/17/17 23:11 PLACED ON CARDIZEM IV BOLUS 5MG FOLLOWED BY INFUSION 10MG/HR, AFTER 2 SETS OF BLOOD CULTURES, ROCEPHIN 1GM IVPB. Blood Culture(s) Obtained: Yes Antibiotics given: Yes Discussed with Dr.: Infante (DISCUSSED WITH DR INFANTE AT 2245 FOR ADMISSION) - Departure Time of Disposition: 23:15 Departure Disposition: In-patient Admission Clinical Impression: ATRIAL FIBRILLATION RVR, PNEUMONIA Condition: Stable Critical Care Time: No Referrals: SAUNDRA MARRERO [Primary Care Provider] -
[2017-12-17] MEDS ORDERED: ROCEPHIN 1 Gm-D5w 50 ml Bag** 1 G/50 ML IVPB IV STA (22:37)
[2017-12-17] MEDS ORDERED: ROCEPHIN 1 Gm-D5w 50 ml Bag** 1 G/50 ML IVPB IV ONE (22:42)
[2017-12-17] MEDS ORDERED: Lasix 40 MG/4 ML ONE (23:11)
[2017-12-18] MEDS ORDERED: Zofran 4 MG/2 ML VIAL IV PRN (00:18)
[2017-12-18] MEDS ORDERED: Sodium Chloride 0.9% 500 ML 500 ML IV SCH (00:18)
[2017-12-18] MEDS ORDERED: Xopenex 1.25 MG/0.5 ML UD NEBULE IH PRN (00:18)
[2017-12-18] MEDS ORDERED: Nitrostat 0.4 MG Tablet SL PRN (00:18)
[2017-12-18] MEDS ORDERED: TYLENOL 325 MG PO PRN (00:18)
[2017-12-18] MEDS ORDERED: CARDIZEM DRIP 100 MG/100 ML D5W 100 ML IV PRN (00:18)
--- NOTE | 2017-12-18 07:35 | PCM.HP ---
History of Present Illness - Chief Complaint Chief Complaint: atrial fibrillation RVR, pneumonia Date: 12/18/17 History of Present Illness: is a 82 year old female. who lives at [facility] suddenly began feeling ill Monday and was short of breath and requested be sent to ED when the nurse came to check on her. She had vital signs checked and HR was 140 and she was sent to ED. She doesn't recall events from yesterday. - Review of Systems Constitutional: Other (unable to obtain secondary to mental status) Medications & Allergies Home Medications: Home Medication List Apixaban [Eliquis] 2.5 mg PO BID 03/30/17 [History Confirmed 12/18/17] Aspirin 81 mg PO DAILY 03/30/17 [History Confirmed 12/18/17] Atorvastatin Calcium [Lipitor 20MG Tablet] 20 mg PO HS 03/30/17 [History Confirmed 12/18/17] Carvedilol 12.5 mg [Coreg 12.5 mg] 25 mg PO BID 03/30/17 [History Confirmed 12/18/17] Levothyroxine Sodium 125 mcg PO DAILY 03/30/17 [History Confirmed 12/18/17] Nitroglycerin 0.4 mg Tablet [Nitrostat 0.4 MG Tablet] 0.4 mg SL Q5MIN PRN MR X 3 PRN 03/30/17 [History Confirmed 12/18/17] Tramadol HCl 50 mg [Ultram 50 mg] 50 mg PO Q8HPRN PRN 03/30/17 [History Confirmed 12/18/17] Escitalopram Oxalate [Lexapro] 15 mg PO DAILY 06/08/17 [History Confirmed ] Furosemide 20 mg [Lasix 20 mg] 20 mg PO LUNCH 06/08/17 [History Confirmed 12/18/17] Furosemide 40 mg [Lasix 40 MG] 40 mg PO QAM 06/08/17 [History Confirmed ] Potassium Chloride 10 Meq Tab* [Klor Con 10 MEQ] 10 meq PO DAILY 06/08/17 [ History Confirmed 12/18/17] Albuterol/Ipratropium 3ml Neb* [DUONEB 0.5-3 MG/3 ml Neb] 0.5 - 2.5 mg IH Q4H PRN PRN 10/28/17 [History Confirmed 12/18/17] Acetaminophen [Tylenol] 650 mg PO Q4HPRN PRN 11/02/17 [History Confirmed ] Alprazolam 0.5 mg PO Q6H PRN PRN 12/18/17 [History Confirmed 12/18/17] PANTOPRAZOLE 40 mg Tablet [Protonix 40MG Tablet] 40 mg PO DAILY 12/18/17 [ History Confirmed 12/18/17] Allergies/Adverse Reactions: Allergies Allergy/AdvReac Type Severity Reaction Status Date / Time OLIVIA Inhibitors Allergy Intermediate Verified 10/28/17 02:03 - Past Medical History Past Medical History: Yes Neurological History: No Pertinent History ENT History: Cataracts Cardiac History: Arrhythmia, Congestive Heart Failure, Hypertension, Myocardial Infarction ([place]) Respiratory History: CHF, COPD Endocrine Medical History: No Pertinent History Musculoskelatal History: Arthritis GI Medical History: No Pertinent History History: No Pertinent History Pyscho-Social History: Anxiety, Depression Reproductive Disorders: No Pertinent History Comment: A fib - Female History Are you now?: No - Past Surgical History Past Surgical History: Yes Neuro Surgical History: No Pertinent History Cardiac History: CABG, Internal Defibrillator, Pacemaker Respiratory Surgery: No Pertinent History GI Surgical History: No Pertinent History Genitourinary Surgical Hx: No Pertinent History Musculskeletal Surgical Hx: No Pertinent History Female Surgical History: No Pertinent History Other Surgical History: Defibrillator removed. Right popliteal artery stenting. - Social History Smoking Status: Former smoker How long have you smoked: 40 years Exposure to second hand smoke: No Alcohol: None Drug Use: none Significant Family History: no pertinent family hx - Physical Exam Vital Signs: Vital Signs - 24 hr Temp Pulse Resp BP BP Pulse Ox 12/18/17 06:55 87 17 96 12/18/17 06:44 82 18 95 12/18/17 06:00 85 22 141/60 97 12/18/17 05:00 70 21 144/72 94 L 12/18/17 03:50 74 21 97 12/18/17 03:00 97.8 F 72 19 130/63 97 12/18/17 02:00 72 15 128/57 95 12/18/17 01:30 72 19 123/65 12/18/17 01:00 80 18 139/66 95 12/18/17 00:41 98.2 F 77 20 114/62 93 L 12/18/17 00:18 70 20 95 12/17/17 23:38 98.3 F 90 125/59 90 L 12/17/17 23:37 98.3 F 90 125/59 90 L 12/17/17 23:36 90 L 12/17/17 22:59 98.3 F 90 18 125/59 95 12/17/17 21:19 98.3 F 127 H 29 H 122/84 90 L Oxygen-Last 24 hours O2 Percentage 5 Liters = 40% O2 Percentage 5 Liters = 40% O2 Percentage 5 Liters = 40% O2 Percentage 5 Liters = 40% O2 Percentage 5 Liters = 40% O2 Percentage 5 Liters = 40% O2 Percentage 5 Liters = 40% O2 Percentage 40% O2 Percentage 4 Liters = 36% O2 Percentage 2 Liters = 28% Oxygen Flowrate (L/min)-RT 8 General Appearance: no apparent distress, alert Neurologic Exam: alert, cooperative, normal mood/affect, nml station & gait, sensation nml, No motor deficits Eye Exam: PERRL/EOMI, eyes nml inspection, No scleral icterus Ears, Nose, Throat Exam: normal ENT inspection, pharynx normal, moist mucous membranes Neck Exam: normal inspection, non-tender, supple, full range of motion Respiratory Exam: crackles/rales, wheezing, No respiratory distress Cardiovascular Exam: normal heart sounds, normal peripheral pulses, irregular Gastrointestinal/Abdomen Exam: soft, normal bowel sounds, No tenderness, No mass Back Exam: normal inspection, normal range of motion, No CVA tenderness, No vertebral tenderness Extremity Exam: normal inspection, normal range of motion, pelvis stable Skin Exam: normal color, warm, dry, No rash Lymphatic Exam: No adenopathy Results - Labs Lab/Micro Results: Lab Results-Last 24 Hours 12/18/17 12/18/17 Range/Units 00:41 03:57 Troponin I 0.044 H* 0.048 H* (0.000-0.034) ng/mL - Other Procedures and Tests Respiratory Therapy 12/18/17 06:00 EKG ROUTINE 12/19/17 05:00 EKG ROUTINE 12/20/17 05:00 EKG ROUTINE 12/21/17 05:00 EKG ROUTINE Assessment/Plan (1) Atrial fibrillation with RVR Current Visit: Yes Status: Acute Assessment & Plan: improved on cardizem gtt change back to coreg 25 mg po bid likely exacerbated by her pneumonia treat with azithromycin and ceftriaxone mild troponin elevation is secondary to her chronic systolic congestive heart failure and her ckd monitor i/o closely ok to transfer to [facility] - [place] on telemetry Code(s): I48.91 - UNSPECIFIED ATRIAL FIBRILLATION (2) Pneumonia Current Visit: Yes Status: Acute Code(s): J18.9 - PNEUMONIA, UNSPECIFIED ORGANISM (3) COPD (chronic obstructive pulmonary disease) Current Visit: Yes Status: Acute (4) Chronic hypoxemic respiratory failure Current Visit: Yes Status: Chronic (5) Chronic kidney disease Current Visit: Yes Status: Chronic Qualifiers: Chronic kidney disease stage: stage 3 (moderate) Qualified Code(s): N18.3 - Chronic kidney disease, stage 3 (moderate) Code(s): N18.9 - CHRONIC KIDNEY DISEASE, UNSPECIFIED (6) CHF (congestive heart failure) Current Visit: Yes Status: Chronic Qualifiers: Qualified Code(s): I50.22 - Chronic systolic (congestive) heart failure Code(s): I50.9 - HEART FAILURE, UNSPECIFIED
[2017-12-18] MEDS ORDERED: MAG-OX 400 PO ONE (08:00)
[2017-12-18 08:08] LABS: INFLUENZA A NEGATIVE (NEGATIVE); INFLUENZA B NEGATIVE (NEGATIVE)
[2017-12-18 08:09] LABS: RESPIRATORY SYNCTIAL VIRUS NEGATIVE (Negative)
[2017-12-18] MEDS ORDERED: ULTRAM 50 MG PO PRN (08:47)
[2017-12-18] MEDS ORDERED: xanAX 0.5 MG PO PRN (08:47)
--- NOTE | 2017-12-18 08:57 | XRAY ---
Indication: Dyspnea. Comparison: November 02, 2017. Portable chest again demonstrates bibasilar infiltrates/atelectasis/effusions, CABG surgery, and left-sided AICD. Heart remains borderline enlarged. No new cardiopulmonary abnormalities.
[2017-12-18] MEDS: Lasix 40 MG PO SCH ×3 (09:45→16:31)
[2017-12-18] MEDS: Klor Con 10 MEQ PO SCH (09:45)
[2017-12-18] MEDS: Zithromax 500 MG/ 250 ML NaCl Premix 500 MG/250 ML IVPB IV SCH (09:46)
[2017-12-18] MEDS: Protonix 40MG Tablet PO SCH (09:46)
[2017-12-18] MEDS: ELIQUIS 5 MG TABLET PO SCH ×2 (09:46→20:18)
[2017-12-18] MEDS: COREG 12.5 MG PO SCH ×2 (09:46→20:20)
[2017-12-18] MEDS: SYNTHROID 125 MCG PO SCH (09:46)
[2017-12-18] MEDS: ECOTRIN 81 MG PO SCH (09:46)
[2017-12-18] MEDS: Lexapro 10 MG PO SCH (09:47)
[2017-12-18] MEDS ORDERED: Lasix 40 MG PO SCH (10:00)
[2017-12-18] MEDS ORDERED: Lexapro 10 MG PO SCH (10:00)
[2017-12-18] MEDS ORDERED: Cardizem CD 240 MG PO SCH (10:00)
[2017-12-18] MEDS ORDERED: COREG 12.5 MG PO SCH (10:00)
[2017-12-18] MEDS: ZOCOR 20MG PO SCH (20:20)
[2017-12-18] MEDS: ROCEPHIN 1 Gm-D5w 50 ml Bag** 1 G/50 ML IVPB IV SCH (21:05)
[2017-12-18] MEDS ORDERED: NON-FORMULARY ITEM (Atorvastatin Calcium 20 MG) PO SCH (22:00)
[2017-12-18] MEDS ORDERED: Lasix 20 MG/2 ML IV ONE (23:08)
[2017-12-19 05:53] LABS: BASOPHIL % 0.4 % (0.0-0.4); Basophil (Absolute #) 0.03 (0-0.4); Eosinophil % 0.5 % (0.00-5.0); Eosinophil (Absolute #) 0.04 (0-0.5); Granulocytes % 61.3 % (36.0-66.0); Hematocrit 34.3 % (35-47); Hemoglobin 10.9 gm/dl (12.0-16.0); Lymphocyte (Absolute #) 2.08 (1.0-4.6); Lymphocytes % 28.3 % (24.0-44.0); Mean Cell Volume 95.3 fl (78-100); Mean Corpuscular Hgb Concent. 31.8 g/dl (32-36); Mean Platelet Volume 10.5 fl (6-9.5); Monocytes % 9.5 % (0.0-12.0); Platelet Count 145 K/mm3 (150-450); Red Cell Distribution Width 19.3 % (11.5-14.0); White Blood Count 7.4 K/mm3 (4.0-10.5)
[2017-12-19 05:55] LABS: Mean Corpuscular Hemoglobin 30.2 pg (26-32)
[2017-12-19 06:07] LABS: ALBUMIN 3.4 g/dL (3.5-5.0); ANION GAP 14.4 MEQ/L (5-15); BILIRUBIN,TOTAL 0.8 mg/dL (0.2-1.3); Calcium 9.2 mg/dL (8.4-10.2); Creatinine 1 1.54 mg/dL (0.52-1.04); Potassium 3.7 mmol/L (3.5-5.1); Total Protein 6.2 g/dL (6.3-8.2)
[2017-12-19] MEDS: ECOTRIN 81 MG PO SCH (07:39)
[2017-12-19] MEDS: COREG 12.5 MG PO SCH ×2 (07:39→23:20)
[2017-12-19] MEDS: Lasix 40 MG PO SCH ×3 (07:40→16:59)
[2017-12-19] MEDS: SYNTHROID 125 MCG PO SCH (07:40)
[2017-12-19] MEDS: Lexapro 10 MG PO SCH (07:40)
[2017-12-19] MEDS: Protonix 40MG Tablet PO SCH (07:40)
[2017-12-19] MEDS: Klor Con 10 MEQ PO SCH (07:40)
[2017-12-19] MEDS: ELIQUIS 5 MG TABLET PO SCH ×2 (07:41→23:20)
[2017-12-19] MEDS ORDERED: Lanoxin 0.5 MG/2 ML INJECTION IV ONE ×2 (08:06→14:00)
--- NOTE | 2017-12-19 08:11 | PCM.NOTE ---
Date and Time: 12/19/17806 Subjective Assessment: she is still feeling short of breath her rvr is controlled after the carvedilol but becomes rapid a few hours before the next dose is due last night and tonight and currently her HR is in the 130' s. She can't remember how she felt last night but states she feels short of breath currently. Denies chest pain nausea or abdominal pain no swelling. she has had increased cough with some sputum production Objective Exam General Appearance: alert, anxiety Neurologic Exam: cooperative Skin Exam: dry Ears, Nose, Throat Exam: dry mucous membranes Neck Exam: non-tender, supple Respiratory Exam: prolonged expirations, other (minmal fine rales at bases otherwise clear) Cardiovascular Exam: tachycardia, irregular, No edema Gastrointestinal/Abdomen Exam: soft, normal bowel sounds, No tenderness, No distention Extremity Exam: normal inspection, No calf tenderness, No pedal edema OBJECTIVE DATA Vital Signs: Vital Signs - 24 hr Temp Pulse Resp BP Pulse Ox 12/19/17 03:37 98 F 79 24 106/81 99 12/19/17 00:00 98.2 F 91 H 21 110/63 97 12/18/17 19:27 97.8 F 124 H 23 124/92 97 12/18/17 16:00 98.5 F 82 23 126/62 100 12/18/17 12:00 79 12/18/17 11:53 99.5 F 79 17 100/46 97 12/18/17 10:00 90 19 119/63 97 12/18/17 09:00 90 22 144/72 95 Oxygen-Last 24 hours O2 Percentage 5 Liters = 40% O2 Percentage 5 Liters = 40% O2 Percentage 5 Liters = 40% O2 Percentage 5 Liters = 40% O2 Percentage 5 Liters = 40% O2 Percentage 4 Liters = 36% O2 Percentage 5 Liters = 40% Pain Assessment - Last Documented Pain Intensity 0 Pain Scale Used 0-10 Pain Scale Intake and Output: Intake & Output 12/16/17 12/17/17 12/18/17 12/19/17 11:59 11:59 11:59 11:59 Intake Total 201 830 Balance 201 830 Weight 50.2 kg 48.1 kg Lab Results: Lab Results-Last 24 Hours 12/18/17 12/18/17 12/18/17 Range/Units 07:09 07:28 09:30 WBC (4.0-10.5) K/mm3 RBC (4.1-5.4) M/mm3 Hgb (12.0-16.0) gm/dl Hct (35-47) % MCV (78-100) fl MCH (26-32) pg MCHC (32-36) g/dl RDW (11.5-14.0) % Plt Count (150-450) K/mm3 MPV (6-9.5) fl Gran % (36.0-66.0) % Eos # (Auto) (0-0.5) Absolute Lymphs (auto) (1.0-4.6) Absolute Monos (auto) (0.0-1.3) Lymphocytes % (24.0-44.0) % Monocytes % (0.0-12.0) % Eosinophils % (0.00-5.0) % Basophils % (0.0-0.4) % Absolute Granulocytes (1.4-6.9) Basophils # (0-0.4) Sodium (137-145) mmol/L Potassium (3.5-5.1) mmol/L Chloride (98-107) mmol/L Carbon Dioxide (22-30) mmol/L Anion Gap (5-15) MEQ/L BUN (7-17) mg/dL Creatinine (0.52-1.04) mg/dL Estimated GFR ML/MIN Glucose (74-106) mg/dL Calcium (8.4-10.2) mg/dL Magnesium (1.6-2.3) mg/dL Total Bilirubin (0.2-1.3) mg/dL AST (14-36) U/L ALT (0-35) U/L Alkaline Phosphatase (38-126) U/L Troponin I 0.050 H* (0.000-0.034) ng/mL NT-Pro-B Natriuret Pep (0-1800) pg/mL Serum Total Protein (6.3-8.2) g/dL Albumin (3.5-5.0) g/dL TSH 3rd Generation 1.710 (0.47-4.68) mIU/L Influenza Type A Ag NEGATIVE (NEGATIVE) Influenza Type B Ag NEGATIVE (NEGATIVE) RSV (PCR) NEGATIVE (Negative) 12/19/17 12/19/17 Range/Units 05:40 05:40 WBC 7.4 (4.0-10.5) K/mm3 RBC 3.60 L (4.1-5.4) M/mm3 Hgb 10.9 L (12.0-16.0) gm/dl Hct 34.3 L (35-47) % MCV 95.3 (78-100) fl MCH 30.2 (26-32) pg MCHC 31.8 L (32-36) g/dl RDW 19.3 H (11.5-14.0) % Plt Count 145 L (150-450) K/mm3 MPV 10.5 H (6-9.5) fl Gran % 61.3 (36.0-66.0) % Eos # (Auto) 0.04 (0-0.5) Absolute Lymphs (auto) 2.08 (1.0-4.6) Absolute Monos (auto) 0.70 (0.0-1.3) Lymphocytes % 28.3 (24.0-44.0) % Monocytes % 9.5 (0.0-12.0) % Eosinophils % 0.5 (0.00-5.0) % Basophils % 0.4 (0.0-0.4) % Absolute Granulocytes 4.50 (1.4-6.9) Basophils # 0.03 (0-0.4) Sodium 141 (137-145) mmol/L Potassium 3.7 (3.5-5.1) mmol/L Chloride 100 (98-107) mmol/L Carbon Dioxide 30 (22-30) mmol/L Anion Gap 14.4 (5-15) MEQ/L BUN 43 H (7-17) mg/dL Creatinine 1.54 H (0.52-1.04) mg/dL Estimated GFR 34 ML/MIN Glucose 133 H (74-106) mg/dL Calcium 9.2 (8.4-10.2) mg/dL Magnesium 1.9 (1.6-2.3) mg/dL Total Bilirubin 0.80 (0.2-1.3) mg/dL AST 62 H (14-36) U/L ALT 87 H (0-35) U/L Alkaline Phosphatase 119 (38-126) U/L Troponin I (0.000-0.034) ng/mL NT-Pro-B Natriuret Pep 12351 H (0-1800) pg/mL Serum Total Protein 6.2 L (6.3-8.2) g/dL Albumin 3.4 L (3.5-5.0) g/dL TSH 3rd Generation (0.47-4.68) mIU/L Influenza Type A Ag (NEGATIVE) Influenza Type B Ag (NEGATIVE) RSV (PCR) (Negative) Multi-Disciplinary Progress Notes: Multi-Disciplinary Progress Notes 12/18/17 09:57 Case Management Note by Eva Garza Talked with CHAYITO GOMEZ regarding needs at time of discharge. Patient reports residing at [facility]. Patient reports plans on returning to [facility] upon discharge. Discharge questionaire reviewed with patient. Important message from Medicare signed. Patient verbalized understanding. Forms placed on chart. Patient meets Acute Adult Inpatient Criteria. Will continue to follow for all Discharge needs. Initialized on 12/18/17 09:57 - END OF NOTE Assessment/Plan (1) Atrial fibrillation with RVR Current Visit: Yes Status: Acute Assessment & Plan: continue coreg but now back with rvr after initial improvement will do dig loading dose today iv monitor closely with her impaired renal function continue pneumonia treatment with azithromycin and ceftriaxone. her weight is down and does not appear to have fluid overload at this time Code(s): I48.91 - UNSPECIFIED ATRIAL FIBRILLATION (2) Pneumonia Current Visit: Yes Status: Acute Code(s): J18.9 - PNEUMONIA, UNSPECIFIED ORGANISM (3) COPD (chronic obstructive pulmonary disease) Current Visit: Yes Status: Acute (4) Chronic hypoxemic respiratory failure Current Visit: Yes Status: Chronic (5) Chronic kidney disease Current Visit: Yes Status: Chronic Qualifiers: Chronic kidney disease stage: stage 3 (moderate) Qualified Code(s): N18.3 - Chronic kidney disease, stage 3 (moderate) Code(s): N18.9 - CHRONIC KIDNEY DISEASE, UNSPECIFIED (6) CHF (congestive heart failure) Current Visit: Yes Status: Chronic Qualifiers: Qualified Code(s): I50.22 - Chronic systolic (congestive) heart failure Code(s): I50.9 - HEART FAILURE, UNSPECIFIED
[2017-12-19] MEDS: Zithromax 500 MG/ 250 ML NaCl Premix 500 MG/250 ML IVPB IV SCH (09:35)
[2017-12-19] MEDS ORDERED: Lanoxin 0.5 MG/2 ML INJECTION IV SCH (14:00)
[2017-12-19] MEDS: ROCEPHIN 1 Gm-D5w 50 ml Bag** 1 G/50 ML IVPB IV SCH (23:19)
[2017-12-19] MEDS: ZOCOR 20MG PO SCH (23:20)
[2017-12-20] MEDS: DUONEB 0.5-3 MG/3 ml Neb IH PRN ×3 (00:45→22:12)
[2017-12-20 06:03] LABS: BASOPHIL % 0.1 % (0.0-0.4); Basophil (Absolute #) 0.01 (0-0.4); Eosinophil % 1.1 % (0.00-5.0); Eosinophil (Absolute #) 0.08 (0-0.5); Granulocytes % 73.8 % (36.0-66.0); Hematocrit 31.3 % (35-47); Lymphocyte (Absolute #) 1.34 (1.0-4.6); Mean Cell Volume 95.4 fl (78-100); Mean Corpuscular Hgb Concent. 31.9 g/dl (32-36); Mean Platelet Volume 10.6 fl (6-9.5); Monocyte (Absolute #) 0.52 (0.0-1.3); Platelet Count 151 K/mm3 (150-450); Red Blood Count 3.28 M/mm3 (4.1-5.4); Red Cell Distribution Width 18.9 % (11.5-14.0); White Blood Count 7.5 K/mm3 (4.0-10.5)
[2017-12-20 06:11] LABS: Mean Corpuscular Hemoglobin 30.4 pg (26-32)
[2017-12-20 06:21] LABS: BILIRUBIN,TOTAL 0.6 mg/dL (0.2-1.3); Calcium 8.9 mg/dL (8.4-10.2); Creatinine 1 1.46 mg/dL (0.52-1.04); Total Protein 5.5 g/dL (6.3-8.2)
[2017-12-20 06:37] LABS: Potassium 2.7 mmol/L (3.5-5.1)
--- NOTE | 2017-12-20 07:56 | PCM.NOTE ---
Date and Time: 12/20/17 0753 Subjective Assessment: hr improved after the dig loading feeling a little better she thinks history limited by dementia she says breathin gis not "not bad but not good" started having diarrhea this am no abdominal pain or vomiting Objective Exam General Appearance: no apparent distress, thin Neurologic Exam: oriented x 3, cooperative Skin Exam: warm, dry Ears, Nose, Throat Exam: dry mucous membranes Neck Exam: non-tender, supple Respiratory Exam: prolonged expirations, crackles/rales, rhonchi, wheezing Cardiovascular Exam: murmur, irregular Gastrointestinal/Abdomen Exam: soft, normal bowel sounds, No tenderness, No distention, No mass, No guarding Extremity Exam: normal inspection, No calf tenderness, No pedal edema OBJECTIVE DATA Vital Signs: Vital Signs - 24 hr Temp Pulse Resp BP Pulse Ox 12/20/17 07:47 98.4 F 73 21 141/64 95 12/20/17 04:00 97.9 F 81 20 148/58 93 L 12/20/17 00:50 86 24 95 12/20/17 00:00 98.3 F 85 20 138/78 93 L 12/19/17 21:10 61 17 99 12/19/17 20:00 98.1 F 61 17 179/76 99 12/19/17 16:00 97.9 F 66 20 144/59 99 12/19/17 11:20 97.2 F 72 23 123/66 95 12/19/17 08:00 98.3 F 114 H 23 103/61 95 Oxygen-Last 24 hours O2 Percentage 3 Liters = 32% O2 Percentage 3 Liters = 32% O2 Percentage 5 Liters = 40% O2 Percentage 5 Liters = 40% O2 Percentage 5 Liters = 40% O2 Percentage 5 Liters = 40% O2 Percentage 5 Liters = 40% Pain Assessment - Last Documented Pain Intensity 0 Pain Scale Used 0-10 Pain Scale Intake and Output: Intake & Output 12/17/17 12/18/17 12/19/17 12/20/17 11:59 11:59 11:59 11:59 Intake Total 201 1280 240 Balance 201 1280 240 Weight 50.2 kg 48.1 kg 50.9 kg Lab Results: Lab Results-Last 24 Hours 12/20/17 12/20/17 Range/Units 05:55 05:55 WBC 7.5 (4.0-10.5) K/mm3 RBC 3.28 L (4.1-5.4) M/mm3 Hgb 10.0 L (12.0-16.0) gm/dl Hct 31.3 L (35-47) % MCV 95.4 (78-100) fl MCH 30.4 (26-32) pg MCHC 31.9 L (32-36) g/dl RDW 18.9 H (11.5-14.0) % Plt Count 151 (150-450) K/mm3 MPV 10.6 H (6-9.5) fl Gran % 73.8 H (36.0-66.0) % Eos # (Auto) 0.08 (0-0.5) Absolute Lymphs (auto) 1.34 (1.0-4.6) Absolute Monos (auto) 0.52 (0.0-1.3) Lymphocytes % 18.0 L (24.0-44.0) % Monocytes % 7.0 (0.0-12.0) % Eosinophils % 1.1 (0.00-5.0) % Basophils % 0.1 (0.0-0.4) % Absolute Granulocytes 5.50 (1.4-6.9) Basophils # 0.01 (0-0.4) Sodium 139 (137-145) mmol/L Potassium 2.7 L* (3.5-5.1) mmol/L Chloride 100 (98-107) mmol/L Carbon Dioxide 30 (22-30) mmol/L Anion Gap 11.0 (5-15) MEQ/L BUN 41 H (7-17) mg/dL Creatinine 1.46 H (0.52-1.04) mg/dL Estimated GFR 36 ML/MIN Glucose 119 H (74-106) mg/dL Calcium 8.9 (8.4-10.2) mg/dL Total Bilirubin 0.60 (0.2-1.3) mg/dL AST 37 H (14-36) U/L ALT 62 H (0-35) U/L Alkaline Phosphatase 97 (38-126) U/L Serum Total Protein 5.5 L (6.3-8.2) g/dL Albumin 3.0 L (3.5-5.0) g/dL Assessment/Plan (1) Atrial fibrillation with RVR Current Visit: Yes Status: Acute Assessment & Plan: improved on coreg and dig continue dig at low dose with renal function, age, and weight and check level next week continue azithromycin, rocephin and nebs check stool for c. diff replace K iv with the low this am if doing well hopeful for back to [facility] tomorrow Code(s): I48.91 - UNSPECIFIED ATRIAL FIBRILLATION (2) Pneumonia Current Visit: Yes Status: Acute Code(s): J18.9 - PNEUMONIA, UNSPECIFIED ORGANISM (3) COPD (chronic obstructive pulmonary disease) Current Visit: Yes Status: Acute (4) Chronic hypoxemic respiratory failure Current Visit: Yes Status: Chronic (5) Chronic kidney disease Current Visit: Yes Status: Chronic Qualifiers: Chronic kidney disease stage: stage 3 (moderate) Qualified Code(s): N18.3 - Chronic kidney disease, stage 3 (moderate) Code(s): N18.9 - CHRONIC KIDNEY DISEASE, UNSPECIFIED (6) CHF (congestive heart failure) Current Visit: Yes Status: Chronic Qualifiers: Qualified Code(s): I50.22 - Chronic systolic (congestive) heart failure Code(s): I50.9 - HEART FAILURE, UNSPECIFIED (7) Diarrhea Current Visit: Yes Status: Acute Code(s): R19.7 - DIARRHEA, UNSPECIFIED (8) Hypokalemia Current Visit: Yes Status: Acute Code(s): E87.6 - HYPOKALEMIA
[2017-12-20] MEDS ORDERED: Sodium Chloride 0.9% 500 ML 500 ML IV SCH (08:30)
[2017-12-20] MEDS: POTASSIUM CHLORIDE 20 mEq IN WATER 100ML 20 MEQ/100 ML BAG IV SCH ×2 (08:39→10:49)
[2017-12-20] MEDS: COREG 12.5 MG PO SCH ×2 (10:17→21:49)
[2017-12-20] MEDS: Lanoxin 0.125MG TABLET PO SCH (10:18)
[2017-12-20] MEDS: Klor Con 10 MEQ PO SCH (10:18)
[2017-12-20] MEDS: ECOTRIN 81 MG PO SCH (10:18)
[2017-12-20] MEDS: ELIQUIS 5 MG TABLET PO SCH ×2 (10:18→21:49)
[2017-12-20] MEDS: Protonix 40MG Tablet PO SCH (10:18)
[2017-12-20] MEDS: Lasix 40 MG PO SCH ×3 (10:18→17:17)
[2017-12-20] MEDS: SYNTHROID 125 MCG PO SCH (10:18)
[2017-12-20] MEDS: Lexapro 10 MG PO SCH (10:19)
[2017-12-20 11:34] LABS: TOXIGENIC C. DIFF ORG POSITIVE (NEGATIVE)
[2017-12-20 11:35] LABS: 027 TOX PROD POSITIVE (NEGATIVE)
[2017-12-20] MEDS: FLAGYL 500 MG IVPB 500 MG/100 ML BAG IV SCH ×3 (13:20→22:30)
[2017-12-20] MEDS: VANCOMYCIN 25MG/ML COMPOUND KIT PO SCH ×2 (13:23→17:17)
[2017-12-20] MEDS: ZOCOR 20MG PO SCH (21:49)
[2017-12-21] MEDS: VANCOMYCIN 25MG/ML COMPOUND KIT PO SCH ×4 (00:12→17:31)
[2017-12-21] MEDS: FLAGYL 500 MG IVPB 500 MG/100 ML BAG IV SCH ×3 (05:49→21:40)
--- NOTE | 2017-12-21 08:58 | PCM.NOTE ---
Date and Time: 12/21/17 0856 Subjective Assessment: "I just hurt all over" she doesn't feel like eating breakfast the diarrhea she states has slowed but is having some increased difficulty breathing now as well very weak Objective Exam General Appearance: no apparent distress, thin Neurologic Exam: alert, cooperative Skin Exam: warm, dry Ears, Nose, Throat Exam: moist mucous membranes Neck Exam: non-tender, supple Respiratory Exam: crackles/rales (bibasilar) Cardiovascular Exam: normal peripheral pulses, murmur, No edema Gastrointestinal/Abdomen Exam: soft, normal bowel sounds, No tenderness, No distention Extremity Exam: normal inspection OBJECTIVE DATA Vital Signs: Vital Signs - 24 hr Temp Pulse Resp BP Pulse Ox 12/21/17 07:06 98.3 F 68 22 145/63 99 12/21/17 04:00 98.9 F 66 19 162/76 97 12/21/17 00:00 97.9 F 83 25 H 139/71 100 12/20/17 22:12 76 20 96 12/20/17 20:00 98.0 F 76 15 123/62 98 12/20/17 16:00 98.4 F 62 16 129/56 97 12/20/17 12:00 85 20 130/61 97 Oxygen-Last 24 hours O2 Percentage 5 Liters = 40% O2 Percentage 5 Liters = 40% O2 Percentage 5 Liters = 40% O2 Percentage 5 Liters = 40% O2 Percentage 5 Liters = 40% O2 Percentage 3 Liters = 32% Pain Assessment - Last Documented Pain Intensity 0 Pain Scale Used 0-10 Pain Scale Intake and Output: Intake & Output 12/18/17 12/19/17 12/20/17 12/21/17 11:59 11:59 11:59 11:59 Intake Total 201 1280 240 740 Balance 201 1280 240 740 Weight 50.2 kg 48.1 kg 50.9 kg 51.6 kg Lab Results: Lab Results-Last 24 Hours 12/20/17 12/20/17 12/20/17 Range/Units 05:00 06:00 14:35 Potassium 3.7 (3.5-5.1) mmol/L Magnesium 1.8 (1.6-2.3) mg/dL Stl C. diff Tox B Gene POSITIVE (NEGATIVE) C.difficile [id number] POSITIVE (NEGATIVE) Assessment/Plan (1) C. difficile colitis Current Visit: Yes Status: Acute Assessment & Plan: on iv flagyl and po vanc (2) Atrial fibrillation with RVR Current Visit: Yes Status: Acute Onset Date: 12/18/17 Assessment & Plan: controlled on the carvedilol and dig Code(s): I48.91 - UNSPECIFIED ATRIAL FIBRILLATION (3) Pneumonia Current Visit: Yes Status: Acute Onset Date: 12/18/17 Assessment & Plan: she had normal wbc and cxr was not impressive has chronic lung findings and was afebrile she received 3 doses of azithromycin and rocephin holding now with the c. diff monitor for worsening Code(s): J18.9 - PNEUMONIA, UNSPECIFIED ORGANISM (4) COPD (chronic obstructive pulmonary disease) Current Visit: Yes Status: Chronic Onset Date: Unknown (5) Chronic hypoxemic respiratory failure Current Visit: Yes Status: Chronic Onset Date: Unknown (6) Chronic kidney disease Current Visit: Yes Status: Chronic Onset Date: Unknown Qualifiers: Chronic kidney disease stage: stage 3 (moderate) Qualified Code(s): N18.3 - Chronic kidney disease, stage 3 (moderate) Code(s): N18.9 - CHRONIC KIDNEY DISEASE, UNSPECIFIED (7) CHF (congestive heart failure) Current Visit: Yes Status: Chronic Onset Date: 12/18/17 Code(s): I50.9 - HEART FAILURE, UNSPECIFIED (8) Diarrhea Current Visit: Yes Status: Acute Onset Date: 12/18/17 Code(s): R19.7 - DIARRHEA, UNSPECIFIED (9) Hypokalemia Current Visit: Yes Status: Acute Onset Date: 12/18/17 Code(s): E87.6 - HYPOKALEMIA
[2017-12-21] MEDS: Lexapro 10 MG PO SCH (11:51)
[2017-12-21] MEDS: Protonix 40MG Tablet PO SCH (11:52)
[2017-12-21] MEDS: COREG 12.5 MG PO SCH ×2 (11:52→21:41)
[2017-12-21] MEDS: Lasix 40 MG PO SCH ×3 (11:54→17:31)
[2017-12-21] MEDS: SYNTHROID 125 MCG PO SCH ×2 (11:54→11:55)
[2017-12-21] MEDS: ELIQUIS 5 MG TABLET PO SCH ×2 (11:54→21:40)
[2017-12-21] MEDS: Lanoxin 0.125MG TABLET PO SCH (11:56)
[2017-12-21] MEDS: ECOTRIN 81 MG PO SCH (11:59)
[2017-12-21] MEDS: Klor Con 10 MEQ PO SCH (12:07)
[2017-12-21] MEDS: ZOCOR 20MG PO SCH (21:41)
[2017-12-22] MEDS: VANCOMYCIN 25MG/ML COMPOUND KIT PO SCH ×4 (00:29→17:35)
[2017-12-22] MEDS: FLAGYL 500 MG IVPB 500 MG/100 ML BAG IV SCH ×2 (05:16→13:52)
[2017-12-22 05:35] LABS: BASOPHIL % 0.2 % (0.0-0.4); Basophil (Absolute #) 0.01 (0-0.4); Eosinophil % 2.2 % (0.00-5.0); Eosinophil (Absolute #) 0.12 (0-0.5); Granulocyte Absolute (ANC) 3.58 (1.4-6.9); Granulocytes % 65.4 % (36.0-66.0); Hematocrit 33.4 % (35-47); Hemoglobin 10.7 gm/dl (12.0-16.0); Lymphocyte (Absolute #) 1.23 (1.0-4.6); Lymphocytes % 22.5 % (24.0-44.0); Mean Cell Volume 94.6 fl (78-100); Mean Corpuscular Hemoglobin 30.3 pg (26-32); Mean Platelet Volume 10.1 fl (6-9.5); Monocyte (Absolute #) 0.53 (0.0-1.3); Monocytes % 9.7 % (0.0-12.0); Platelet Count 157 K/mm3 (150-450); Red Blood Count 3.53 M/mm3 (4.1-5.4); Red Cell Distribution Width 18.3 % (11.5-14.0); White Blood Count 5.5 K/mm3 (4.0-10.5)
[2017-12-22 05:47] LABS: ALBUMIN 2.8 g/dL (3.5-5.0); ANION GAP 10.8 MEQ/L (5-15); BILIRUBIN,TOTAL 0.6 mg/dL (0.2-1.3); Calcium 8.7 mg/dL (8.4-10.2); Creatinine 1 1.46 mg/dL (0.52-1.04); Total Protein 5.4 g/dL (6.3-8.2)
[2017-12-22 05:55] LABS: Potassium 2.9 mmol/L (3.5-5.1)
[2017-12-22] MEDS: POTASSIUM CHLORIDE 20 mEq IN WATER 100ML 20 MEQ/100 ML BAG IV SCH ×2 (08:00→09:45)
--- NOTE | 2017-12-22 08:07 | PCM.DS ---
Discharge Summary Date of Admission: 12/18/17 00:00 Date of Discharge: 12/22/17 Admitting Physician: MAURY WEST Primary Care Provider: SAUNDRA MARRERO Allergies Allergies OLIVIA Inhibitors Allergy (Intermediate, Verified 10/28/17 02:03) Hospital Summary - Hospital Course Hospital Course: Ms. Ignacio lives at [facility] and has severe copd and chronic systolic heart failure with atrial fibrillation and was having some cough and congestion and suddnely became very short of breath and difficulty getting oxygen saturation out of the 80% range and she was sent to the ED. She was found to have afib with rvr and this was initially treated with cardizem gtt it was improved and she was placed on her coreg at 25 bid however she was having difficulty with increased rate again into the 120 to 130's a few hours prior to next dosing being due and thus she was given a loading dose of digoxin iv with 250 mcg followed by 125 mcg 6 hours later an this resolved the rvr and she was placed on a maintenance dose of 0.0625 mg daily of the digoxin and did well for the rate control for the remainder. Due to the preceeding respiratory symptoms and her chronic cxr showing evidence of possible pneumonia she was covered for pneumonia with three days of rocephin and azithromycin, however she developed diarrhea on day 3 found to be c.diff and with her lack of wbc elevation or fevers the antibiotics were discontinued and she was started on iv flagyl and po vancomycin due to her frail status and her strain being + for the Nap 1 gene. She showed improvement in her stools and was going less frequently tolerating po and had a nontender abdomen and was afebrile and thus transitioned back to [facility] to complete coarse of therapy with po vancomycin for the c. diff infection and to continue on the coreg and dig for the afib with rvr. - Vitals & Intake/Output Vital Signs: Vital Signs Temperature 98.4 F 12/22/17 07:13 Pulse Rate 65 12/22/17 07:13 Respiratory Rate 22 12/22/17 07:13 Blood Pressure 136/60 12/22/17 07:13 O2 Sat by Pulse Oximetry 100 12/22/17 07:13 Oxygen-Last Documented O2 Percentage 5 Liters = 40% Intake & Output: Intake & Output 12/19/17 12/20/17 12/21/17 12/22/17 11:59 11:59 11:59 11:59 Intake Total 1280 240 740 360 Balance 1280 240 740 360 Weight 48.1 kg 50.9 kg 51.6 kg 49.3 kg - Lab Result Diagrams: 12/22/17 05:10 12/22/17 14:05 Lab Results-Last 24 Hrs: Lab Results-Last 24 Hours 12/22/17 12/22/17 Range/Units 05:10 05:10 WBC 5.5 (4.0-10.5) K/mm3 RBC 3.53 L (4.1-5.4) M/mm3 Hgb 10.7 L (12.0-16.0) gm/dl Hct 33.4 L (35-47) % MCV 94.6 (78-100) fl MCH 30.3 (26-32) pg MCHC 32.0 (32-36) g/dl RDW 18.3 H (11.5-14.0) % Plt Count 157 (150-450) K/mm3 MPV 10.1 H (6-9.5) fl Gran % 65.4 (36.0-66.0) % Eos # (Auto) 0.12 (0-0.5) Absolute Lymphs (auto) 1.23 (1.0-4.6) Absolute Monos (auto) 0.53 (0.0-1.3) Lymphocytes % 22.5 L (24.0-44.0) % Monocytes % 9.7 (0.0-12.0) % Eosinophils % 2.2 (0.00-5.0) % Basophils % 0.2 (0.0-0.4) % Absolute Granulocytes 3.58 (1.4-6.9) Basophils # 0.01 (0-0.4) Sodium 138 (137-145) mmol/L Potassium 2.9 L* (3.5-5.1) mmol/L Chloride 99 (98-107) mmol/L Carbon Dioxide 32 H (22-30) mmol/L Anion Gap 10.8 (5-15) MEQ/L BUN 38 H (7-17) mg/dL Creatinine 1.46 H (0.52-1.04) mg/dL Estimated GFR 36 ML/MIN Glucose 81 (74-106) mg/dL Calcium 8.7 (8.4-10.2) mg/dL Total Bilirubin 0.60 (0.2-1.3) mg/dL AST 27 (14-36) U/L ALT 38 H (0-35) U/L Alkaline Phosphatase 81 (38-126) U/L Serum Total Protein 5.4 L (6.3-8.2) g/dL Albumin 2.8 L (3.5-5.0) g/dL - Procedures and Test Procedures and Tests throughout Hospitalization: Therapy Orders & Screens 12/18/17 00:18 Respiratory Therapy Consult ROUTINE Comment: Reason For Exam: Schedule Outpatient Cardiolite Stress Test Diagnosis: Chest Pain TEMO 12/19/17 05:00 EKG ROUTINE Comment: Diagnosis: atrial fibrillation RVR, pneumonia 12/19/17 21:09 Oxygen NASAL CANNULA 4 lpm Comment: Diagnosis: atrial fibrillation RVR, pneumonia neb [Respiratory Nebulizer] UD Comment: XOP PRN Diagnosis: atrial fibrillation RVR, pneumonia 12/20/17 05:00 EKG ROUTINE Comment: Diagnosis: atrial fibrillation RVR, pneumonia 12/21/17 05:00 EKG ROUTINE Comment: Diagnosis: atrial fibrillation RVR, pneumonia Discharge Exam General Appearance: no apparent distress, alert, thin Neurologic Exam: alert, cooperative, normal mood/affect, nml cerebellar function , sensation nml, other (she does not recall recent events well and is not oriented to day but is to place and situation), No motor deficits Skin Exam: normal color, warm, dry Eye Exam: PERRL, EOMI, eyes nml inspection Ears, Nose, Throat Exam: normal ENT inspection, pharynx normal, moist mucous membranes Neck Exam: normal inspection, non-tender, supple, full range of motion Respiratory Exam: normal breath sounds, lungs clear, crackles/rales (bibasilar worse on the right), No respiratory distress Cardiovascular Exam: murmur, irregular Gastrointestinal/Abdomen Exam: soft, No tenderness, No mass Extremity Exam: normal inspection, No calf tenderness Pelvic Exam: deferred Rectal Exam: deferred Final Diagnosis/Problem List - Final Discharge Diagnosis/Problem (1) C. difficile colitis Status: Acute (2) Atrial fibrillation with RVR Status: Acute Onset Date: 12/18/17 (3) Pneumonia Status: Acute Onset Date: 12/18/17 (4) COPD (chronic obstructive pulmonary disease) Status: Chronic Onset Date: Unknown (5) Chronic hypoxemic respiratory failure Status: Chronic Onset Date: Unknown (6) Chronic kidney disease Status: Chronic Onset Date: Unknown (7) CHF (congestive heart failure) Status: Chronic Onset Date: 12/18/17 (8) Diarrhea Status: Acute Onset Date: 12/18/17 (9) Hypokalemia Status: Acute Onset Date: 12/18/17 - Discharge Discharge Date: 12/22/17 Disposition: [place] TO [facility] Condition: Stable Prescriptions: New Carvedilol 25 mg PO BID #60 tablet Digoxin 0.125 mg Tablet [Lanoxin 0.125MG TABLET] 0.0625 mg PO DAILY # 30 tablet Vancomycin HCl [Vancomycin 25Mg/ml Compound Kit] 250 mg PO Q6HT 10 Days # 15066 mg Continue Apixaban [Eliquis 5 mg Tablet] 2.5 mg PO BID Levothyroxine Sodium 125 mcg PO DAILY Atorvastatin Calcium [Lipitor 20MG Tablet] 20 mg PO HS Aspirin 81 mg PO DAILY Nitroglycerin 0.4 mg Tablet [Nitrostat 0.4 MG Tablet] 0.4 mg SL Q5MIN PRN MR X 3 PRN PRN Reason: Chest Pain Tramadol HCl 50 mg [Ultram 50 mg] 50 mg PO Q8HPRN PRN PRN Reason: Pain Furosemide 40 mg [Lasix 40 MG] 40 mg PO QAM Potassium Chloride 10 Meq Tab* [Klor Con 10 MEQ] 10 meq PO DAILY Escitalopram Oxalate [Lexapro] 15 mg PO DAILY Furosemide 20 mg [Lasix 20 mg] 20 mg PO LUNCH Albuterol/Ipratropium 3ml Neb* [DUONEB 0.5-3 MG/3 ml Neb] 0.5 - 2.5 mg IH Q4H PRN PRN PRN Reason: Shortness Of Breath Acetaminophen [Tylenol] 650 mg PO Q4HPRN PRN PRN Reason: discomfort Alprazolam 0.5 mg PO Q6H PRN PRN PRN Reason: Anxiety PANTOPRAZOLE 40 mg Tablet [Protonix 40MG Tablet] 40 mg PO DAILY Discontinued Carvedilol 12.5 mg [Coreg 12.5 mg] 25 mg PO BID Additional Instructions: the patient is to continue the carvedilol 25 mg po bid and start digoxin 0.0625 mg po daily start vancomycin 250 mg po four times a day for 10 days for c. diff infection check bmp and dig level in 1 week Follow up with: SAUNDRA MARRERO [Primary Care Provider] - 1 Week Forms: Ambulance Transport Record, Transfer Record Intermediate
[2017-12-22] MEDS: SYNTHROID 125 MCG PO SCH (09:46)
[2017-12-22] MEDS: Lexapro 10 MG PO SCH (09:46)
[2017-12-22] MEDS: ECOTRIN 81 MG PO SCH (09:47)
[2017-12-22] MEDS: Klor Con 10 MEQ PO SCH (09:47)
[2017-12-22] MEDS: ELIQUIS 5 MG TABLET PO SCH (09:48)
[2017-12-22] MEDS: Protonix 40MG Tablet PO SCH (09:48)
[2017-12-22] MEDS: Lanoxin 0.125MG TABLET PO SCH (09:48)
[2017-12-22] MEDS: COREG 12.5 MG PO SCH (09:49)
[2017-12-22] MEDS: Lasix 40 MG PO SCH ×3 (09:49→17:35)
[2017-12-22 15:23] VITALS: BP 124/64; PULSE 68; O2SAT 95
== END 2017-12-22 17:40 | DRG 371 ==
LOC: ED 21:18 → ICU 12-18 → MED SURG 12-19 18:33
PROVIDERS: ADMIT Family Medicine; ATTEND Family Medicine
DX: A04.72 Enterocolitis due to Clostridium difficile, not specified as recurrent (principal); J18.9 Pneumonia, unspecified organism; I50.9 Heart failure, unspecified; I10 Essential (primary) hypertension; J96.11 Chronic respiratory failure with hypoxia; R00.2 Palpitations; I50.22 Chronic systolic (congestive) heart failure; I50.84 End stage heart failure; Z95.1 Presence of aortocoronary bypass graft; Z95.0 Presence of cardiac pacemaker; I48.91 Unspecified atrial fibrillation; J44.9 Chronic obstructive pulmonary disease, unspecified; Z79.01 Long term (current) use of anticoagulants; I12.9 Hypertensive chronic kidney disease with stage 1 through stage 4 chronic kidney disease, or unspecified chronic kidney disease; N18.3 Chronic kidney disease, stage 3 (moderate); M19.90 Unspecified osteoarthritis, unspecified site; F41.8 Other specified anxiety disorders; Z79.899 Other long term (current) drug therapy; I25.2 Old myocardial infarction; Z95.810 Presence of automatic (implantable) cardiac defibrillator; Z98.61 Coronary angioplasty status; Z87.891 Personal history of nicotine dependence; E87.6 Hypokalemia
CPT/HCPCS: 36000; 36415; 51702; 71045; 80053; 83735; 83880; 84132; 84443; 84484; 85025; 85610; 87040; 87493; 87631; 93005; 93041; 94640; 94760; 96360; 96361; 96374; 99285; J0456; J0696; J1160; J1940; J3480; A9270-GY

== ENCOUNTER 2018-01-11 23:07 | Observation (INO) | payer MEDICARE ==
[2018-01-11] MEDS ORDERED: Sodium Chloride 0.9% 1000 ML 1,000 ML IV SCH (23:45)
[2018-01-11] MEDS ORDERED: Levofloxacin 500MG/100ML D5W 500 MG/100 ML BAG IV STA (23:51)
[2018-01-12] MEDS ORDERED: Levofloxacin 500MG/100ML D5W 500 MG/100 ML BAG IV ONE
--- NOTE | 2018-01-12 00:36 | ERPHSYRPT ---
- History of Present Illness Time Seen by Provider: 01/11/18 23:25 Source: patient, EMS, [facility] records Exam Limitations: clinical condition Patient Subjective Stated Complaint: SOB tonight. poor historian. cough with snot looking stuff Triage Nursing Assessment: alert but confused. denies CP but has had SOB recently. states that her memory is bad. Lungs clear bilateral. O2 at 2L NC per EMS. no edema noted. denies any other pains. Physician History: PATIENT WITH A HISTORY OF CONGESTIVE HEART FAILURE, COPD, CHRONIC ATRIAL FIBRILLATION, COMPLAINS OF DIFFICULTY BREATHING AND SHORTNESS OF BREATH AND OCCASIONAL COUGH. PATIENT ADMINISTERED DUO NEB AEROSOL TREATMENT VIA EMS ALONG WITH INTRAVENOUS SOLUMEDROL 125MG. DETENTION STAFF DENIES FEVER, OR CHEST PAIN. Timing/Duration: today Activities at Onset: activity Severity of Dyspnea-Max: moderate Severity of Dyspnea-Current: moderate Possible Cause: occasional episodes Modifying Factors: Improves With: albuterol nebulizer, coughing Associated Symptoms: cough International travel in last 2 weeks: No Allergies/Adverse Reactions: OLIVIA Inhibitors Allergy (Intermediate, Verified 01/12/18 01:24) Home Medications: Apixaban [Eliquis 5 mg Tablet] 2.5 mg PO BID 03/30/17 [History] Aspirin 81 mg PO DAILY 03/30/17 [History] Atorvastatin Calcium [Lipitor 20MG Tablet] 20 mg PO HS 03/30/17 [History] Levothyroxine Sodium 125 mcg PO DAILY 03/30/17 [History] Nitroglycerin 0.4 mg Tablet [Nitrostat 0.4 MG Tablet] 0.4 mg SL Q5MIN PRN MR X 3 PRN 03/30/17 [History] Tramadol HCl 50 mg [Ultram 50 mg] 50 mg PO Q8HPRN PRN 03/30/17 [History] Escitalopram Oxalate [Lexapro] 15 mg PO DAILY 06/08/17 [History] Furosemide 20 mg [Lasix 20 mg] 20 mg PO LUNCH 06/08/17 [History] Furosemide 40 mg [Lasix 40 MG] 40 mg PO QAM 06/08/17 [History] Potassium Chloride 10 Meq Tab* [Klor Con 10 MEQ] 10 meq PO DAILY 06/08/17 [ History] Albuterol/Ipratropium 3ml Neb* [DUONEB 0.5-3 MG/3 ml Neb] 0.5 - 2.5 mg IH Q4H PRN PRN 10/28/17 [History] Acetaminophen [Tylenol] 650 mg PO Q4HPRN PRN 11/02/17 [History] Alprazolam 0.5 mg PO Q6H PRN PRN 12/18/17 [History] PANTOPRAZOLE 40 mg Tablet [Protonix 40MG Tablet] 40 mg PO DAILY 12/18/17 [ History] Hx Tetanus, Diphtheria Vaccination/Date Given: Yes Hx Influenza Vaccination/Date Given: No Hx Pneumococcal Vaccination/Date Given: No Immunizations Up to Date: (unknown) - Review of Systems Constitutional: No Fever, No Chills Eyes: No Symptoms Ears, Nose, & Throat: No Symptoms Respiratory: Cough, Dyspnea, Dyspnea on Exertion (DERAS) Cardiac: No Symptoms, No Chest Pain, No Edema, No Syncope Abdominal/Gastrointestinal: No Symptoms, No Abdominal Pain, No Nausea, No Vomiting, No Diarrhea Genitourinary Symptoms: No Symptoms, No Dysuria Musculoskeletal: No Back Pain, No Neck Pain Skin: No Rash Neurological: No Dizziness, No Focal Weakness, No Sensory Changes Psychological: No Symptoms Endocrine: No Symptoms All Other Systems: Reviewed and Negative - Past Medical History Pertinent Past Medical History: Yes Neurological History: No Pertinent History ENT History: Cataracts Cardiac History: Arrhythmia, Congestive Heart Failure, Hypertension, Myocardial Infarction ([place]) Respiratory History: CHF, COPD Endocrine Medical History: No Pertinent History Musculoskeletal History: Arthritis GI Medical History: No Pertinent History History: No Pertinent History Psycho-Social History: Anxiety, Depression Female Reproductive Disorders: No Pertinent History Other Medical History: A fib - Past Surgical History Past Surgical History: Yes Neuro Surgical History: No Pertinent History Cardiac: CABG, Internal Defibrillator, Pacemaker Respiratory: No Pertinent History Gastrointestinal: No Pertinent History Genitourinary: No Pertinent History Musculoskeletal: No Pertinent History Female Surgical History: No Pertinent History Other Surgical History: Defibrillator removed. Right popliteal artery stenting. - Social History Smoking Status: Never smoker How long have you smoked: 40 years Exposure to second hand smoke: No Alcohol Use: None Drug Use: none Patient Lives Alone: No Significant Family History: no pertinent family hx - Female History Hx Now: No - Nursing Vital Signs Nursing Vital Signs: Initial Vital Signs Pulse Rate 94 H 01/11/18 23:14 Respiratory Rate 18 01/11/18 23:14 Blood Pressure 157/106 01/11/18 23:14 O2 Sat by Pulse Oximetry 100 01/11/18 23:14 Pain Scale Pain Intensity 0 - Physical Exam General Appearance: mild distress Eye Exam: PERRL/EOMI Neck Exam: normal inspection, supple Respiratory Exam: diminished breath sounds (AT BASES, NO WHEEZES) Cardiovascular/Chest Exam: normal heart sounds, other (IRREGULAR IRREGULAR PULSE ) Abdominal/Gastrointestinal Exam: soft, No tenderness, No distention, No mass Extremity Exam: non-tender, normal range of motion, normal inspection, no calf tenderness, no pedal edema Peripheral Pulses Exam: carotid (R): 2+, carotid (L): 2+, femoral (R): 2+, femoral (L): 2+, dorsalis-pedis (R): 2+, dorsalis-pedis (L): 2+ Neurologic Exam: alert (TO PERSON ONLY), 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, 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[employer] II-XII nml as tested, sensation nml, No motor deficits Skin Exam: normal color, warm, No dry SpO2 Interpretation: normal SpO2: 97 Oxygen Delivery: Nasal Cannula - Course EKG Interpreted by Me: A-fib, NORMAL AXIS - Radiology Exams Chest X-ray Interpretation: Interpreted by me (COPD, RIGHT LOWER LOBE INFILTRATE WITH SMALL PLEURAL EFFUSION) Ordered Tests: Active Orders 24 hr Category Date Time Status Up With Assistance ROUTINE Activity 01/12/18 01:18 Ordered Program Scheduler STAT Care 01/11/18 23:35 Active Code Status Order ROUTINE Care 01/12/18 01:18 Ordered EKG-ER Only STAT Care 01/11/18 23:34 Active IV Care Q6H Care 01/12/18 01:18 Ordered Oxygen-ED Only NASAL CANNULA 2 lpm Care 01/11/18 23:[address] in Observation ROUTINE Care 01/12/18 01:18 Ordered Raciel Hose, Apply ROUTINE Care 01/12/18 01:18 Ordered Telemetry ROUTINE Care 01/12/18 01:18 Ordered Vital Signs Q4H Care 01/12/18 01:18 Ordered Weight,Daily 0600 Care 01/12/18 01:18 Ordered Regular Diet Diet 01/12/18 Breakfast Ordered CHEST 1 VIEW (PORTABLE) Stat Exams 01/11/18 23:35 Taken CBC W DIFF Stat Lab 01/11/18 23:45 Completed CMP Stat Lab 01/11/18 23:45 Completed Manual Differential NC Stat Lab 01/11/18 23:45 Completed NT PRO BNP Stat Lab 01/11/18 23:45 Completed PROTIME WITH INR Stat Lab 01/11/18 23:45 Received TROPONIN Q3H Lab 01/11/18 23:45 Received TROPONIN Q3H Lab 01/12/18 02:45 Ordered TROPONIN Q3H Lab 01/12/18 05:45 Ordered TROPONIN Q3H Lab 01/12/18 08:45 Ordered TROPONIN Q3H Lab 01/12/18 11:45 Ordered UA W/RFX UR CULTURE Stat Lab 01/11/18 23:37 Ordered Oxygen NASAL CANNULA 2 lpm RT 01/12/18 01:18 Ordered Pulse Oximetry CONTINUOUS RT 01/12/18 01:21 Ordered Respiratory Nebulizer STAT RT 01/12/18 00:39 Completed Transfer Order Routine Transfer 01/12/18 Ordered Medication Summary Generic Name Dose Route Start Last Admin Trade Name Freq PRN Reason Stop Dose Admin Sodium Chloride 1,000 mls @ 50 mls/hr 01/11/18 23:45 01/11/18 23:43 Sodium Chloride 0.9% 1000 Ml IV 02/10/18 23:44 50 mls/hr .Q20H ABHIJIT Administration Discontinued Medications Generic Name Dose Route Start Last Admin Trade Name Freq PRN Reason Stop Dose Admin Albuterol/Ipratropium 3 ml 01/12/18 00:38 01/12/18 00:49 Duoneb 0.5-3 Mg/3 Ml Neb IH 01/12/18 00:39 3 ml STAT ONE Administration Albuterol/Ipratropium Confirm 01/12/18 00:48 Duoneb 0.5-3 Mg/3 Ml Neb Administered 01/12/18 00:49 Dose 3 ml IH .STK-MED ONE Levofloxacin/Dextrose 500 mg in 100 mls @ 100 mls/hr 01/11/18 23:51 01/12/18 00:24 Levofloxacin 500mg/100ml D5w IV 01/12/18 00:50 100 mls/hr STAT STA Administration Levofloxacin/Dextrose Confirm 01/12/18 00:00 Levofloxacin 500mg/100ml D5w Administered 01/12/18 00:01 Dose 500 mg in 100 mls @ ud IV .STK-MED ONE Lab/Rad Data: Laboratory Result Diagrams 01/11/18 23:45 01/11/18 23:45 Laboratory Results 01/11/18 01/11/18 01/11/18 Range/Units 23:45 23:45 23:45 WBC (4.0-10.5) K/mm3 RBC (4.1-5.4) M/mm3 Hgb (12.0-16.0) gm/dl Hct (35-47) % MCV (78-100) fl MCH (26-32) pg MCHC (32-36) g/dl RDW (11.5-14.0) % Plt Count (150-450) K/mm3 MPV (6-9.5) fl Segmented Neutrophils (36.0-66.0) % Lymphocytes (Manual) (24-44) % Monocytes (Manual) (0.0-12.0) % Eosinophils (Manual) (0.00-3.0) % Basophils (Manual) (0.0-1.0) % Platelet Estimate (NORMAL) RBC Morphology Anisocytosis Microcytosis PT 19.1 H (9.95-12.35) SECONDS INR 1.71 (0.8-3.0) Sodium (137-145) mmol/L Potassium (3.5-5.1) mmol/L Chloride (98-107) mmol/L Carbon Dioxide (22-30) mmol/L Anion Gap (5-15) MEQ/L BUN (7-17) mg/dL Creatinine (0.52-1.04) mg/dL Estimated GFR ML/MIN Glucose (74-106) mg/dL Calcium (8.4-10.2) mg/dL Total Bilirubin (0.2-1.3) mg/dL AST (14-36) U/L ALT (0-35) U/L Alkaline Phosphatase (38-126) U/L Troponin I 0.076 H* (0.000-0.034) ng/mL NT-Pro-B Natriuret Pep (0-1800) pg/mL Serum Total Protein (6.3-8.2) g/dL Albumin (3.5-5.0) g/dL Digoxin 0.9 (0.8-1.9) ng/mL 01/11/18 01/11/18 Range/Units 23:45 23:45 WBC 12.2 H (4.0-10.5) K/mm3 RBC 3.97 L (4.1-5.4) M/mm3 Hgb 12.2 (12.0-16.0) gm/dl Hct 39.0 (35-47) % MCV 98.2 (78-100) fl MCH 30.7 (26-32) pg MCHC 31.3 L (32-36) g/dl RDW 17.9 H (11.5-14.0) % Plt Count 216 (150-450) K/mm3 MPV 11.5 H (6-9.5) fl Segmented Neutrophils 25 L (36.0-66.0) % Lymphocytes (Manual) 69 H (24-44) % Monocytes (Manual) 4 (0.0-12.0) % Eosinophils (Manual) 1 (0.00-3.0) % Basophils (Manual) 1 (0.0-1.0) % Platelet Estimate NORMAL (NORMAL) RBC Morphology ABNORMAL Anisocytosis 1+ Microcytosis 1+ PT (9.95-12.35) SECONDS INR (0.8-3.0) Sodium 142 (137-145) mmol/L Potassium 4.1 (3.5-5.1) mmol/L Chloride 102 (98-107) mmol/L Carbon Dioxide 24 (22-30) mmol/L Anion Gap 19.2 H (5-15) MEQ/L BUN 31 H (7-17) mg/dL Creatinine 1.95 H (0.52-1.04) mg/dL Estimated GFR 25.9 ML/MIN Glucose 229 H (74-106) mg/dL Calcium 9.1 (8.4-10.2) mg/dL Total Bilirubin 0.70 (0.2-1.3) mg/dL AST 51 H (14-36) U/L ALT 35 (0-35) U/L Alkaline Phosphatase 95 (38-126) U/L Troponin I (0.000-0.034) ng/mL NT-Pro-B Natriuret Pep 61850 H (0-1800) pg/mL Serum Total Protein 6.8 (6.3-8.2) g/dL Albumin 3.6 (3.5-5.0) g/dL Digoxin (0.8-1.9) ng/mL - Progress Progress Note: 01/12/18 00:37 ADMINISTERED IV NORMAL SALINE 50ML/HR, LEVAQUIN 500MG IVPB AND DUONEB AEROSOL TX Discussed with Dr.: Felicia (DISCUSSED WITH DR WEST AT 0115 FOR OBSERVATION) - Departure Time of Disposition: 01:30 Departure Disposition: Observation Clinical Impression: PNEUMONIA, EXACERBATION COPD Condition: Stable Critical Care Time: No Referrals: SAUNDRA MARRERO [Primary Care Provider] -
[2018-01-12 00:38] LABS: Hemoglobin 12.2 gm/dl (12.0-16.0); Mean Cell Volume 98.2 fl (78-100); Mean Corpuscular Hemoglobin 30.7 pg (26-32); Mean Corpuscular Hgb Concent. 31.3 g/dl (32-36); Mean Platelet Volume 11.5 fl (6-9.5); Platelet Count 216 K/mm3 (150-450); Red Blood Count 3.97 M/mm3 (4.1-5.4); Red Cell Distribution Width 17.9 % (11.5-14.0); White Blood Count 12.2 K/mm3 (4.0-10.5)
[2018-01-12] MEDS ORDERED: DUONEB 0.5-3 MG/3 ml Neb IH ONE ×2 (00:38→00:48)
[2018-01-12 00:51] LABS: ALBUMIN 3.6 g/dL (3.5-5.0); ANION GAP 19.2 MEQ/L (5-15); BILIRUBIN,TOTAL 0.7 mg/dL (0.2-1.3); Calcium 9.1 mg/dL (8.4-10.2); Creatinine 1 1.95 mg/dL (0.52-1.04); Potassium 4.1 mmol/L (3.5-5.1); Total Protein 6.8 g/dL (6.3-8.2)
[2018-01-12 01:02] LABS: ANISOCYTOSIS 1+; Basophil 1 % (0.0-1.0); Eosinophil 1 % (0.00-3.0); Lymphocytes 69 % (24-44); Microcytosis 1+; Monocyte 4 % (0.0-12.0); Neutrophils 25 % (36.0-66.0); Platelet Estimate NORMAL (NORMAL); Total Cells Counted 100
[2018-01-12 01:08] LABS: INR 1.71 (0.8-3.0)
[2018-01-12] MEDS ORDERED: TYLENOL 325 MG PO PRN (01:22)
[2018-01-12] MEDS ORDERED: Nitrostat 0.4 MG Tablet SL PRN (01:24)
[2018-01-12] MEDS ORDERED: Sodium Chloride 0.9% 1000 ML 1,000 ML IV SCH (01:30)
[2018-01-12] MEDS: VANCOMYCIN 25MG/ML COMPOUND KIT PO SCH ×4 (02:19→17:46)
[2018-01-12] MEDS ORDERED: DUONEB 0.5-3 MG/3 ml Neb IH SCH (03:00)
[2018-01-12] MEDS ORDERED: DUONEB 0.5-3 MG/3 ml Neb IH PRN (03:15)
[2018-01-12] MEDS: solu-MEDROL 125 MG IV SCH ×3 (06:45→17:45)
--- NOTE | 2018-01-12 08:21 | PCM.HP ---
History of Present Illness - Chief Complaint Chief Complaint: shortness of breath Date: 01/12/18 History of Present Illness: is a 83 year old female. with severe heart failure and copd with chronic hypoxemic respiratory failure who lives at [facility]. She developed a c. diff infection last week and that was starting to improve on the vanc and she was doing well yesterday until late last night she awoke very short of breath and panicked she demanded the nurse send her to the ED. she was afebrile and her blood pressure was ok as was her pulse ox on her regular O2 at [facility] but her pulse was up to 130. This am she is feeling much better eating well diarrhea controlled no chest pain or sob but bp is elevated. She is tolerating 2L of nc O2 which is much lower then she had in the past. - Review of Systems Constitutional: No Fever, No Chills Eyes: No Symptoms Ears, Nose, & Throat: No Symptoms Respiratory: Short Of Breath, No Cough Cardiac: No Chest Pain, No Edema, No Syncope Abdominal/Gastrointestinal: No Abdominal Pain, No Nausea, No Vomiting, No Diarrhea Genitourinary Symptoms: No Dysuria Musculoskeletal: No Back Pain, No Neck Pain Skin: No Rash Neurological: No Dizziness, No Focal Weakness, No Sensory Changes Psychological: No Symptoms Endocrine: No Symptoms Hematologic/Lymphatic: No Symptoms Immunological/Allergic: No Symptoms Medications & Allergies Home Medications: Home Medication List Apixaban [Eliquis 5 mg Tablet] 2.5 mg PO BID 03/30/17 [History Confirmed 01/12/18] Aspirin 81 mg PO DAILY 03/30/17 [History Confirmed 01/12/18] Atorvastatin Calcium [Lipitor 20MG Tablet] 20 mg PO HS 03/30/17 [History Confirmed 01/12/18] Levothyroxine Sodium 125 mcg PO DAILY 03/30/17 [History Confirmed 01/12/18] Nitroglycerin 0.4 mg Tablet [Nitrostat 0.4 MG Tablet] 0.4 mg SL Q5MIN PRN MR X 3 PRN 03/30/17 [History Confirmed 01/12/18] Tramadol HCl 50 mg [Ultram 50 mg] 50 mg PO Q8HPRN PRN 03/30/17 [History Confirmed 01/12/18] Escitalopram Oxalate [Lexapro] 15 mg PO DAILY 06/08/17 [History Confirmed ] Furosemide 20 mg [Lasix 20 mg] 20 mg PO LUNCH 06/08/17 [History Confirmed 01/12/18] Furosemide 40 mg [Lasix 40 MG] 40 mg PO QAM 06/08/17 [History Confirmed ] Potassium Chloride 10 Meq Tab* [Klor Con 10 MEQ] 10 meq PO DAILY 06/08/17 [ History Confirmed 01/12/18] Albuterol/Ipratropium 3ml Neb* [DUONEB 0.5-3 MG/3 ml Neb] 0.5 - 2.5 mg IH Q4H PRN PRN 10/28/17 [History Confirmed 01/12/18] Acetaminophen [Tylenol] 650 mg PO Q4HPRN PRN 11/02/17 [History Confirmed ] Alprazolam 0.5 mg PO Q6H PRN PRN 12/18/17 [History Confirmed 01/12/18] PANTOPRAZOLE 40 mg Tablet [Protonix 40MG Tablet] 40 mg PO DAILY 12/18/17 [ History Confirmed 01/12/18] Carvedilol 25 mg PO BID #60 tablet 12/22/17 [Rx Confirmed 01/12/18] Digoxin 0.125 mg Tablet [Lanoxin 0.125MG TABLET] 0.0625 mg PO DAILY #30 tablet 12/22/17 [Rx Confirmed 01/12/18] Vancomycin HCl [Vancomycin 25Mg/ml Compound Kit] 250 mg PO Q6HT 10 Days #92675 mg 12/22/17 [Rx Confirmed 01/12/18] Allergies/Adverse Reactions: Allergies Allergy/AdvReac Type Severity Reaction Status Date / Time OLIVIA Inhibitors Allergy Intermediate Verified 01/12/18 01:24 - Past Medical History Past Medical History: Yes Neurological History: No Pertinent History ENT History: Cataracts Cardiac History: Arrhythmia, Congestive Heart Failure, High Cholesterol, Hypertension, Myocardial Infarction ([place]) Respiratory History: CHF, COPD, Sleep Apnea Endocrine Medical History: Hypothyroidism Musculoskelatal History: Arthritis GI Medical History: GERD History: No Pertinent History Pyscho-Social History: Anxiety, Depression Reproductive Disorders: No Pertinent History Comment: A fib - Female History Are you now?: No - Past Surgical History Past Surgical History: Yes Neuro Surgical History: No Pertinent History Cardiac History: CABG, Pacemaker, Other Respiratory Surgery: No Pertinent History GI Surgical History: No Pertinent History Genitourinary Surgical Hx: No Pertinent History Musculskeletal Surgical Hx: No Pertinent History Female Surgical History: No Pertinent History Other Surgical History: Defibrillator removed. Right popliteal artery stenting. - Social History Smoking Status: Former smoker How long have you smoked: 40 years Exposure to second hand smoke: No Alcohol: None Drug Use: none Significant Family History: no pertinent family hx - Physical Exam Vital Signs: Vital Signs - 24 hr Temp Pulse Resp BP BP Pulse Ox 01/12/18 07:48 18 01/12/18 07:30 170/80 01/12/18 07:20 67 18 93 L 01/12/18 07:03 97.6 F 86 20 193/100 96 01/12/18 04:15 97.8 F 68 20 143/74 93 L 01/12/18 02:33 97.3 F 68 22 177/78 93 L 01/12/18 01:31 97 01/12/18 01:21 93 L 01/12/18 00:54 77 16 95 01/12/18 00:50 69 18 156/69 96 01/12/18 00:48 85 18 156/69 95 01/11/18 23:58 69 18 136/66 97 01/11/18 23:14 94 H 18 157/106 100 Oxygen-Last 24 hours O2 Percentage 2 Liters = 28% O2 Percentage 2 Liters = 28% O2 Percentage 2 Liters = 28% O2 Percentage 2 Liters = 28% O2 Percentage 2 Liters = 28% O2 Percentage 2 Liters = 28% O2 Percentage 2 Liters = 28% Oxygen Flowrate (L/min)-RT 2 General Appearance: no apparent distress, alert, thin Neurologic Exam: alert, oriented x 3, cooperative, normal mood/affect, nml cerebellar function, nml station & gait, sensation nml, No motor deficits Eye Exam: PERRL/EOMI, eyes nml inspection Ears, Nose, Throat Exam: normal ENT inspection, TMs normal, pharynx normal, moist mucous membranes Neck Exam: normal inspection, non-tender, supple, full range of motion Respiratory Exam: normal breath sounds, lungs clear, crackles/rales (bilateral) , No respiratory distress Cardiovascular Exam: murmur, irregular, No edema Gastrointestinal/Abdomen Exam: soft, normal bowel sounds, No tenderness, No mass Back Exam: normal inspection, normal range of motion, No CVA tenderness, No vertebral tenderness Extremity Exam: normal inspection, normal range of motion, pelvis stable Skin Exam: normal color, warm, dry, No rash Lymphatic Exam: No adenopathy Results - Labs Lab/Micro Results: Lab Results-Last 24 Hours 01/12/18 01/12/18 Range/Units 02:20 05:15 Troponin I 0.099 H* 0.116 H* (0.000-0.034) ng/mL - Other Procedures and Tests Respiratory Therapy 01/12/18 01:18 Oxygen NASAL CANNULA 2 lpm 01/12/18 07:00 neb [Respiratory Nebulizer] UD Assessment/Plan (1) Atrial fibrillation with RVR Current Visit: Yes Status: Acute Onset Date: 12/18/17 Assessment & Plan: based on her history and the rapid onset and resolution and her vital signs at the longterm with the pulse of 130 I suspect she began having afib with rvr as she is very sensitive to how this makes her feel and she typically feels panicked and short of breath when this occurs. On arrival she was much more calm after HR was back to normal and today doing much better she was given rocephin, azithromycin, and levaquin in the ED. I have stopped these 3 medications now as her chest xray appears more chronic and more consistent with her chronic lung disease and chf with the recent pneumonia not fully resolved then an acute active infection especially with the rapid onset and improvement of symptoms. Also with her active c. diff infection would like to avoid any unnecessary antibiotics will continue the po vancomycin for the c.diff and even consider continueing it a little longer now since she received the abx in the ed check dig level in am and monitor for rvr. She recently had her medications adjusted as the carvedilol was incrased dig was started and diltiazem was stopped due to side effects and her heart failure. with the hypertension and the chronic elevated troponin which is acutely worse with the acute on chronic renal failure and fatemeh acute heart failure, will give a dose of iv lasix now and continue her antihypertensives. For some reason ER has ordered a smaller dose of her carvedilol this was stopped and placed on her normal dose. plan to monitor overnight and treat the copd with iv steroids as well if she is stable in the am and no fevers, worsening shortness of breath or other evidence of ongoing infection or heart disease could d/c to [facility] with follow up with her outpatient outside [facility]. Code(s): I48.91 - UNSPECIFIED ATRIAL FIBRILLATION (2) C. difficile colitis Current Visit: Yes Status: Acute (3) COPD with acute exacerbation Current Visit: Yes Status: Acute Onset Date: 01/12/18 Code(s): J44.1 - CHRONIC OBSTRUCTIVE PULMONARY DISEASE W (ACUTE) EXACERBATION (4) Chronic hypoxemic respiratory failure Current Visit: Yes Status: Chronic Onset Date: Unknown (5) Chronic kidney disease Current Visit: Yes Status: Chronic Onset Date: Unknown Qualifiers: Code(s): N18.9 - CHRONIC KIDNEY DISEASE, UNSPECIFIED (6) CHF (congestive heart failure) Current Visit: Yes Status: Acute Onset Date: Unknown Qualifiers: Heart failure type: combined systolic and diastolic Code(s): I50.9 - HEART FAILURE, UNSPECIFIED
[2018-01-12] MEDS ORDERED: Lasix 40 MG/4 ML IV ONE (08:27)
[2018-01-12] MEDS ORDERED: ULTRAM 50 MG PO PRN (08:58)
[2018-01-12] MEDS ORDERED: xanAX 0.5 MG PO PRN (08:58)
--- NOTE | 2018-01-12 09:37 | XRAY ---
Indication: Difficulty breathing. Comparison: December 17, 2017. Portable chest unchanged again with bibasilar infiltrates/atelectasis/effusions, CABG surgery, and left-sided AICD. Heart is not enlarged for AP portable technique. No new cardiopulmonary abnormalities.
[2018-01-12] MEDS ORDERED: NON-FORMULARY ITEM (Carvedilol [Carvedilol] 25 MG) PO SCH (10:00)
[2018-01-12] MEDS ORDERED: Coreg 6.25 MG PO SCH (10:00)
[2018-01-12] MEDS ORDERED: ROCEPHIN 1 Gm-D5w 50 ml Bag** 1 G/50 ML IVPB IV SCH (10:00)
[2018-01-12] MEDS ORDERED: Zithromax 500 MG/ 250 ML NaCl Premix 500 MG/250 ML IVPB IV SCH (10:00)
[2018-01-12] MEDS ORDERED: LASIX 20 MG PO SCH (10:00)
[2018-01-12] MEDS ORDERED: ELIQUIS 5 MG TABLET PO SCH ×2 (10:00)
[2018-01-12] MEDS ORDERED: NON-FORMULARY ITEM (Aspirin [Aspirin] 81 MG) PO SCH (10:00)
[2018-01-12] MEDS ORDERED: ESCITALOPRAM OXALATE 15 MG PO SCH (10:00)
[2018-01-12] MEDS: Lexapro 10 MG PO SCH (10:08)
[2018-01-12] MEDS: Klor Con 10 MEQ PO SCH (10:08)
[2018-01-12] MEDS: Protonix 40MG Tablet PO SCH (10:08)
[2018-01-12] MEDS: SYNTHROID 125 MCG PO SCH (10:08)
[2018-01-12] MEDS: ECOTRIN 81 MG PO SCH (10:08)
[2018-01-12] MEDS: Lanoxin 0.125MG TABLET PO SCH (10:08)
[2018-01-12] MEDS: COREG 12.5 MG PO SCH ×2 (10:08→21:48)
[2018-01-12] MEDS: ELIQUIS 2.5 MG TABLET PO SCH ×2 (10:08→21:48)
[2018-01-12] MEDS: LASIX 20 MG PO SCH (11:51)
[2018-01-12 16:10] LABS: Appearance CLEAR (CLEAR); Bilirubin NEGATIVE (NEGATIVE); Glucose 250 mg/dL (NEGATIVE); Ketones NEGATIVE (NEGATIVE); Leukocyte Esterase MODERATE (NEGATIVE); Nitrite NEGATIVE (NEGATIVE); Protein,Urine Dip NEGATIVE (Negative); Specific Gravity 1.015 (1.005-1.025); Urobilinogen NORMAL mg/dL (0-1)
[2018-01-12 16:11] LABS: Amourphous Crystal FEW /HPF (NEGATIVE); Bacteria MODERATE /HPF (NEGATIVE); Blood SMALL Ery/ul (0-5); Epithelial Cells FEW /HPF (FEW)
[2018-01-12] MEDS ORDERED: ZOCOR 20MG PO SCH (22:00)
[2018-01-12] MEDS ORDERED: NON-FORMULARY ITEM (Atorvastatin Calcium 20 MG) PO SCH (22:00)
[2018-01-13] MEDS: solu-MEDROL 125 MG IV SCH ×2 (00:58→06:31)
[2018-01-13] MEDS: VANCOMYCIN 25MG/ML COMPOUND KIT PO SCH ×3 (00:58→12:34)
[2018-01-13 05:55] LABS: Basophil (Absolute #) 0 (0-0.4); Eosinophil (Absolute #) 0 (0-0.5); Granulocyte Absolute (ANC) 7.24 (1.4-6.9); Granulocytes % 85.7 % (36.0-66.0); Hematocrit 31.8 % (35-47); Hemoglobin 10.3 gm/dl (12.0-16.0); Lymphocyte (Absolute #) 0.98 (1.0-4.6); Lymphocytes % 11.6 % (24.0-44.0); Mean Cell Volume 94.1 fl (78-100); Mean Corpuscular Hgb Concent. 32.4 g/dl (32-36); Mean Platelet Volume 10.5 fl (6-9.5); Monocyte (Absolute #) 0.23 (0.0-1.3); Monocytes % 2.7 % (0.0-12.0); Platelet Count 168 K/mm3 (150-450); Red Blood Count 3.38 M/mm3 (4.1-5.4); Red Cell Distribution Width 17.5 % (11.5-14.0); White Blood Count 8.5 K/mm3 (4.0-10.5)
[2018-01-13 05:59] LABS: Mean Corpuscular Hemoglobin 30.4 pg (26-32)
[2018-01-13 06:22] LABS: ALBUMIN 3.1 g/dL (3.5-5.0); ANION GAP 13.5 MEQ/L (5-15); BILIRUBIN,TOTAL 0.4 mg/dL (0.2-1.3); Calcium 8.9 mg/dL (8.4-10.2); Creatinine 1 2.06 mg/dL (0.52-1.04); Potassium 4.3 mmol/L (3.5-5.1); Total Protein 5.8 g/dL (6.3-8.2)
[2018-01-13 06:50] LABS: TSH, 3RD Generation 1.03 mIU/L (0.47-4.68)
[2018-01-13] MEDS ORDERED: Lasix 40 MG PO SCH (10:00)
[2018-01-13] MEDS: Klor Con 10 MEQ PO SCH (10:47)
[2018-01-13] MEDS: COREG 12.5 MG PO SCH (10:47)
[2018-01-13] MEDS: Lexapro 10 MG PO SCH (10:48)
[2018-01-13] MEDS: ELIQUIS 2.5 MG TABLET PO SCH (10:48)
[2018-01-13] MEDS: SYNTHROID 125 MCG PO SCH (10:48)
[2018-01-13] MEDS: Protonix 40MG Tablet PO SCH (10:49)
[2018-01-13] MEDS: ECOTRIN 81 MG PO SCH (10:49)
[2018-01-13] MEDS: Lanoxin 0.125MG TABLET PO SCH (11:01)
[2018-01-13 11:56] VITALS: PULSE 66; O2SAT 94
[2018-01-13] MEDS ORDERED: solu-MEDROL 125 MG IV SCH (12:00)
[2018-01-13] MEDS: LASIX 20 MG PO SCH (12:33)
[2018-01-13 15:55] VITALS: BP 171/68
--- NOTE | 2018-01-13 16:43 | PCM.DS ---
Discharge Summary Date of Admission: 01/12/18 01:51 Admitting Physician: MAURY WEST Primary Care Provider: SAUNDRA MARRERO Allergies Allergies OLIVIA Inhibitors Allergy (Intermediate, Verified 01/12/18 01:24) Hospital Summary - Hospital Course Hospital Course: Pt admitted in some distress with HR in 130s; was treated for pneumonia/COPD exacerbation, but due to her rapid onset of symptoms it was ultimately felt that she was having afib with RVR. Doing well here; no complaints about breathing. She had some troponin increase, but this was felt to be related to her age, renal function, and recent afib. Her digoxin level is 1.1 this morning. She is being treated for C. diff infection with po vancomycin. She is not having any increased stools. Tolerating po well. She was treated with antibiotics in the ER but Dr. West discontinued them. His plan is to extend the po vancomycin a few days in response to this exposure. Pt has had some elevated BP here, but also had BP in the 110s at one point so no changes being made in her antihypertensive regimen currently. She will return to the [facility] today in stable condition on po steroids and po vancomycin. - Vitals & Intake/Output Vital Signs: Vital Signs Temperature 98.3 F 01/13/18 15:54 Pulse Rate 66 01/13/18 15:54 Respiratory Rate 18 01/13/18 15:54 Blood Pressure 171/68 01/13/18 15:54 O2 Sat by Pulse Oximetry 94 L 01/13/18 15:54 Oxygen-Last Documented O2 Percentage 2 Liters = 28% Intake & Output: Intake & Output 01/11/18 01/12/18 01/13/18 01/14/18 11:59 11:59 11:59 11:59 Intake Total 743 1080 280 Output Total 200 Balance 743 880 280 Weight 49.5 kg 53.4 kg - Lab Result Diagrams: 01/13/18 05:00 01/13/18 05:15 Lab Results-Last 24 Hrs: Lab Results-Last 24 Hours 01/13/18 01/13/18 01/13/18 Range/Units 05:00 05:15 05:15 WBC 8.5 (4.0-10.5) K/mm3 RBC 3.38 L (4.1-5.4) M/mm3 Hgb 10.3 L (12.0-16.0) gm/dl Hct 31.8 L (35-47) % MCV 94.1 (78-100) fl MCH 30.4 (26-32) pg MCHC 32.4 (32-36) g/dl RDW 17.5 H (11.5-14.0) % Plt Count 168 (150-450) K/mm3 MPV 10.5 H (6-9.5) fl Gran % 85.7 H (36.0-66.0) % Eos # (Auto) 0 (0-0.5) Absolute Lymphs (auto) 0.98 L (1.0-4.6) Absolute Monos (auto) 0.23 (0.0-1.3) Lymphocytes % 11.6 L (24.0-44.0) % Monocytes % 2.7 (0.0-12.0) % Eosinophils % 0.0 (0.00-5.0) % Basophils % 0.0 (0.0-0.4) % Absolute Granulocytes 7.24 H (1.4-6.9) Basophils # 0 (0-0.4) Sodium 135 L (137-145) mmol/L Potassium 4.3 (3.5-5.1) mmol/L Chloride 100 (98-107) mmol/L Carbon Dioxide 25 (22-30) mmol/L Anion Gap 13.5 (5-15) MEQ/L BUN 44 H (7-17) mg/dL Creatinine 2.06 H (0.52-1.04) mg/dL Estimated GFR 24.3 ML/MIN Glucose 234 H (74-106) mg/dL Calcium 8.9 (8.4-10.2) mg/dL Magnesium 1.9 (1.6-2.3) mg/dL Total Bilirubin 0.40 (0.2-1.3) mg/dL AST 22 (14-36) U/L ALT 24 (0-35) U/L Alkaline Phosphatase 68 (38-126) U/L Serum Total Protein 5.8 L (6.3-8.2) g/dL Albumin 3.1 L (3.5-5.0) g/dL TSH 3rd Generation 1.030 (0.47-4.68) mIU/L Digoxin 1.1 (0.8-1.9) ng/mL Micro Results-Entire Visit: Microbiology 01/12/18 15:46 Urine Culture - Preliminary Urine, Void <10K NORMAL SKIN HUNG PROBABLE SKIN CONTAMINANT - Procedures and Test Procedures and Tests throughout Hospitalization: Therapy Orders & Screens 01/12/18 01:18 Oxygen NASAL CANNULA 2 lpm Comment: Diagnosis: Shortness of Breath 01/12/18 07:00 neb [Respiratory Nebulizer] UD Comment: DUO Q4PRN Diagnosis: pneumonia Discharge Exam General Appearance: no apparent distress, alert Neurologic Exam: cooperative, other (appears oriented) Skin Exam: normal color, warm, dry, No rash Ears, Nose, Throat Exam: moist mucous membranes Neck Exam: normal inspection Respiratory Exam: lungs clear, diminished breath sounds, No crackles/rales, No rhonchi, No wheezing Cardiovascular Exam: regular rate/rhythm, normal heart sounds, No murmur Gastrointestinal/Abdomen Exam: soft, normal bowel sounds, No tenderness, No distention Extremity Exam: normal inspection, No pedal edema, No swelling Back Exam: normal inspection, No rash Final Diagnosis/Problem List - Final Discharge Diagnosis/Problem (1) Respiratory distress Current Visit: Yes Status: Resolved Assessment & Plan: Thought in retrospect to be more related to afib with RVR than a respiratory infection; however she does have COPD and is being treated with steroids for possible COPD exacerbation. Pt also with CHF so if she was in afib this could be part of a multifactorial cause of her distress. She looks great today and will discharge back to her [facility]. (2) Atrial fibrillation with RVR Current Visit: Yes Status: Chronic Onset Date: 12/18/17 Assessment & Plan: chronic intermittent. (3) C. difficile colitis Current Visit: Yes Status: Acute Assessment & Plan: stay on po vancomycin (4) CHF (congestive heart failure) Current Visit: Yes Status: Chronic Onset Date: Unknown (5) COPD with acute exacerbation Current Visit: Yes Status: Acute Onset Date: 01/12/18 Assessment & Plan: home on po steroids. (6) Chronic hypoxemic respiratory failure Current Visit: Yes Status: Chronic Onset Date: Unknown (7) Chronic kidney disease Current Visit: Yes Status: Chronic Onset Date: Unknown - Discharge Disposition: [facility] TO [facility] Condition: Stable Prescriptions: New Prednisone 20 mg [Deltasone 20 mg] 20 mg PO DAILY #17 tablet Continue Apixaban [Eliquis 5 mg Tablet] 2.5 mg PO BID Levothyroxine Sodium 125 mcg PO DAILY Atorvastatin Calcium [Lipitor 20MG Tablet] 20 mg PO HS Aspirin 81 mg PO DAILY Nitroglycerin 0.4 mg Tablet [Nitrostat 0.4 MG Tablet] 0.4 mg SL Q5MIN PRN MR X 3 PRN PRN Reason: Chest Pain Tramadol HCl 50 mg [Ultram 50 mg] 50 mg PO Q8HPRN PRN PRN Reason: Pain Furosemide 40 mg [Lasix 40 MG] 40 mg PO QAM Potassium Chloride 10 Meq Tab* [Klor Con 10 MEQ] 10 meq PO DAILY Escitalopram Oxalate [Lexapro] 15 mg PO DAILY Furosemide 20 mg [Lasix 20 mg] 20 mg PO LUNCH Albuterol/Ipratropium 3ml Neb* [DUONEB 0.5-3 MG/3 ml Neb] 0.5 - 2.5 mg IH Q4H PRN PRN PRN Reason: Shortness Of Breath Acetaminophen [Tylenol] 650 mg PO Q4HPRN PRN PRN Reason: discomfort Alprazolam 0.5 mg PO Q6H PRN PRN PRN Reason: Anxiety PANTOPRAZOLE 40 mg Tablet [Protonix 40MG Tablet] 40 mg PO DAILY Carvedilol 25 mg PO BID #60 tablet Digoxin 0.125 mg Tablet [Lanoxin 0.125MG TABLET] 0.0625 mg PO DAILY # 30 tablet Vancomycin HCl [Vancomycin 25Mg/ml Compound Kit] 250 mg PO Q6HT 10 Days # 45551 mg Follow up with: SAUNDRA MARRERO [Primary Care Provider] - 1 Week
== END 2018-01-13 18:15 ==
LOC: ED 23:07 → MED SURG 01-12 01:51
PROVIDERS: ADMIT Family Medicine; ATTEND Family Medicine
DX: R06.03 Acute respiratory distress (principal); I48.91 Unspecified atrial fibrillation; A04.72 Enterocolitis due to Clostridium difficile, not specified as recurrent; I50.9 Heart failure, unspecified; J44.1 Chronic obstructive pulmonary disease with (acute) exacerbation; J96.11 Chronic respiratory failure with hypoxia; N18.9 Chronic kidney disease, unspecified; Z79.01 Long term (current) use of anticoagulants; Z79.899 Other long term (current) drug therapy
CPT/HCPCS: 36415; 71045; 80053; 80162; 81000; 83735; 83880; 84443; 84484; 85025; 85610; 87040; 87086; 93005; 93041; 93268; 94640; 94760; 96360; 96365; 96374; 99284; 99285; J1940; J1956; J2930; A9270-GY; G0378

== ENCOUNTER 2018-02-21 13:19 | Emergency (ER) | payer MEDICARE ==
[2018-02-21 13:41] VITALS: BP 155/81; PULSE 68; O2SAT 99
--- NOTE | 2018-02-21 13:41 | ERPHSYRPT ---
- History of Present Illness Time Seen by Provider: 02/21/18 13:35 Source: patient Exam Limitations: no limitations Physician History: This is a 83-year-old white female resident of a [facility] brought by medics with complaint of pain in her left leg after falling at the [facility] out of wheelchair. detention personnel apparently thought that the patient had shortening of her left lower extremity. Patient is complaining of pain in her left lower leg pain in her left foot she currently does not have pain in her left hip. She denies hitting her head she has no loss of consciousness. Patient does have a rash on her right forehead that she apparently has a known history of shingles which is undergoing treatment. She denies any neck pain. Past medical history includes arrhythmia, congestive heart failure, high blood pressure, myocardial infarction, COPD, arthritis, anxiety, depression, atrial fibrillation. Past surgical history includes CABG, pacer defibrillator, defibrillator removed , right Poplliteal artery stenting Occurred: this morning (10:30 this morning) Injuries/Pain Location: lower extremity Loss of Consciousness: no loss of consciousness Quality: aching Severity of Pain-Max: mild Severity of Pain-Current: mild Modifying Factors: Improves With: nothing Associated Symptoms (Fall): denies symptoms Allergies/Adverse Reactions: OLIVIA Inhibitors Allergy (Intermediate, Verified 01/12/18 01:24) Home Medications: Apixaban [Eliquis 5 mg Tablet] 2.5 mg PO BID 03/30/17 [History] Aspirin 81 mg PO DAILY 03/30/17 [History] Atorvastatin Calcium [Lipitor 20MG Tablet] 20 mg PO HS 03/30/17 [History] Levothyroxine Sodium 125 mcg PO DAILY 03/30/17 [History] Nitroglycerin 0.4 mg Tablet [Nitrostat 0.4 MG Tablet] 0.4 mg SL Q5MIN PRN MR X 3 PRN 03/30/17 [History] Tramadol HCl 50 mg [Ultram 50 mg] 50 mg PO Q8HPRN PRN 03/30/17 [History] Escitalopram Oxalate [Lexapro] 15 mg PO DAILY 06/08/17 [History] Furosemide 20 mg [Lasix 20 mg] 20 mg PO LUNCH 06/08/17 [History] Furosemide 40 mg [Lasix 40 MG] 40 mg PO QAM 06/08/17 [History] Potassium Chloride 10 Meq Tab* [Klor Con 10 MEQ] 10 meq PO DAILY 06/08/17 [ History] Albuterol/Ipratropium 3ml Neb* [DUONEB 0.5-3 MG/3 ml Neb] 0.5 - 2.5 mg IH Q4H PRN PRN 10/28/17 [History] Acetaminophen [Tylenol] 650 mg PO Q4HPRN PRN 11/02/17 [History] Alprazolam 0.5 mg PO Q6H PRN PRN 12/18/17 [History] PANTOPRAZOLE 40 mg Tablet [Protonix 40MG Tablet] 40 mg PO DAILY 12/18/17 [ History] Acyclovir 800 mg [Zovirax 800 mg] 800 mg PO 5XD 02/21/18 [History] Hx Tetanus, Diphtheria Vaccination/Date Given: Yes Hx Influenza Vaccination/Date Given: No Hx Pneumococcal Vaccination/Date Given: No - Review of Systems Constitutional: No Fever, No Chills Eyes: No Symptoms Ears, Nose, & Throat: No Symptoms Respiratory: No Cough, No Dyspnea Cardiac: No Chest Pain, No Edema, No Syncope Abdominal/Gastrointestinal: No Abdominal Pain, No Nausea, No Vomiting, No Diarrhea Genitourinary Symptoms: No Dysuria Musculoskeletal: Other (left leg pain), No Back Pain, No Neck Pain Skin: No Rash Neurological: Other (left leg pain) Psychological: No Symptoms Endocrine: No Symptoms All Other Systems: Reviewed and Negative - Past Medical History Pertinent Past Medical History: Yes Neurological History: No Pertinent History ENT History: Cataracts Cardiac History: Arrhythmia, Congestive Heart Failure, High Cholesterol, Hypertension, Myocardial Infarction ([place]) Respiratory History: CHF, COPD, Sleep Apnea Endocrine Medical History: Hypothyroidism Musculoskeletal History: Arthritis GI Medical History: GERD History: No Pertinent History Psycho-Social History: Anxiety, Depression Female Reproductive Disorders: No Pertinent History Other Medical History: A fib - Past Surgical History Past Surgical History: Yes Neuro Surgical History: No Pertinent History Cardiac: CABG, Pacemaker, Other Respiratory: No Pertinent History Gastrointestinal: No Pertinent History Genitourinary: No Pertinent History Musculoskeletal: No Pertinent History Female Surgical History: No Pertinent History Other Surgical History: Defibrillator removed. Right popliteal artery stenting. - Social History Smoking Status: Former smoker How long have you smoked: 40 years Exposure to second hand smoke: No Alcohol Use: None Drug Use: none Patient Lives Alone: No Significant Family History: no pertinent family hx - Nursing Vital Signs Nursing Vital Signs: Initial Vital Signs Temperature 97.3 F 02/21/18 13:20 Pulse Rate 68 02/21/18 13:20 Respiratory Rate 18 02/21/18 13:20 Blood Pressure 155/81 02/21/18 13:20 O2 Sat by Pulse Oximetry 99 02/21/18 13:20 Pain Scale Pain Intensity 0 - Ray Coma Score Best Eye Response (Buck): (4) open spontaneously Best Verbal Response (Ray): (5) oriented Best Motor Response (Buck): (6) obeys commands Buck Total: 15 - Physical Exam General Appearance: no apparent distress, alert Head Injury: no evidence of injury Eye Exam: PERRL/EOMI ENT Exam: airway nml Neck Exam: normal inspection, No tenderness Respiratory/Chest Exam: normal breath sounds, No chest tenderness, No respiratory distress Cardiovascular Exam: normal heart sounds, regular rate/rhythm Gastrointestinal Exam: soft, No tenderness, No distention, No guarding, No ecchymosis Back Exam: normal inspection, No vertebral tenderness Extremity Exam: other (mild pain with palpation left leg left foot) Neurologic Exam: alert, oriented x 3, cooperative, sensation nml, No motor deficits Skin Exam: other (healing shingles left forehead) SpO2 Interpretation: normal - Course Nursing assessment & vital signs reviewed: Yes - Radiology Exams Pelvis X-ray Interpretation: Discussed w/ radiologist (x-ray of the pelvis: Impression : 1. No acute fracture or dislocation of the pelvis or eeither hip is seen 2. Bilateral arterial stents are seen within the pelvis longer on the left than right) Left Lower Leg X-ray Interpretation: Discussed w/ radiologist (x-ray left lower leg: Impression : 1. No acute fracture or other significant focal bone lesion of the lefttibia or fibula. 2. Surgical clips are noted along the medial aspect of the left lower leg from prior vascular surgery 3. Mild atherosclerotic vascular calcification is seen within the calf arteries) Left Foot X-ray Interpretation: Discussed w/ radiologist (x-ray left foot: Impression: 1. No acute fracture or dislocation of the left foot is seen 2. Mild hallux valgus and bunion deformity overlying the left first MTP joint. Minimal lateral subluxation of the base of the left great toe a osteophyte formation overlying the medial margin of the distal left first metatarsal head are again seen. 3. Mild atherosclerotic vascular calcification is again seen) Ordered Tests: Active Orders 24 hr Category Date Time Status Splint STAT Care 02/21/18 14:38 Active FOOT (MINIMUM 3 VIEWS) Stat Exams 02/21/18 13:35 Completed LOWER LEG Stat Exams 02/21/18 13:35 Completed PELVIS (1 OR 2 VIEWS) Stat Exams 02/21/18 13:35 Completed - Progress Progress: improved Progress Note: 02/21/18 14:34 83-year-old white female brought by medics from the [facility] after a fall today out of her wheelchair. Patient initially was thought to have shortening of her left lower extremity by [facility] staff. Patient states that she is having pain in the lower leg anteriorly. She has some bruising on the left dorsal foot and some pain on her great toe. X-rays of the patient's AP pelvis shows intact pelvis no fracture in either hip patient's x-ray of her lower leg no fractures or dislocations, x-ray of the left foot no fractures or dislocation she has minimal lateral subluxation of the base of left great toe and some osteophyte formation overlying the medial margin of the distal left first metatarsal head which is chronic Patient was offered Tylenol for pain she really didn't want anything for pain she is in no acute distress she has no other injuries. Will go ahead and have the nurses give patient a postop shoe patient return to the [facility] resume previous medications and treatment. Tylenol every 4 hours as needed for pain. Follow-up with family doctor. - Departure Time of Disposition: 14:36 Departure Disposition: Home Clinical Impression: Pain in left leg Accidental fall Qualifiers: Encounter type: initial encounter Qualified Code(s): W19.XXXA - Unspecified fall, initial encounter Contusion of left foot Qualifiers: Encounter type: initial encounter Qualified Code(s): S90.32XA - Contusion of left foot, initial encounter Condition: Fair Critical Care Time: No Referrals: SAUNDRA MARRERO [Primary Care Provider] - Instructions: Contusion (DC) Additional Instructions: Return home. Tylenol every 4 hours as needed for pain. Resume previous medications and treatments. Cold packs left foot 24-48 hours. Follow-up with your family doctor. Return for acute distress or for severe symptoms.
--- NOTE | 2018-02-21 14:18 | XRAY ---
Exam: AP view of the pelvis from 02/21/2018. Comparison: None available. Indication: 83-year-old female with fall, complains of pain. Findings: I see no acute fracture or dislocation of the pelvis. The sacroiliac joints and hip joint spaces appear unremarkable. Moderate atherosclerotic vascular calcification is seen within the distal abdominal aorta, iliac arteries, and visualized proximal femoral arteries. There is a stent on the right side extending from the distal right common iliac artery into the right external iliac artery. A much longer stent is seen on the left extending from the origin of the left common iliac artery down to the distal left external iliac artery near the level of the left hip joint space. Some calcified phleboliths are seen overlying the pelvis. The visualized bowel gas pattern appears unremarkable. Some chondrocalcinosis is seen within the symphysis pubis. Minor spurring is seen at the margins of the greater trochanter of each hip. No other focal bone lesion is seen. Impression: 1. No acute fracture or dislocation of the pelvis or either hip is seen. 2. Bilateral arterial stents are seen within the pelvis, longer on the left than right.
--- NOTE | 2018-02-21 14:20 | XRAY ---
Exam: Two-view left lower leg films from 02/21/2018. Comparison: None available. Indication: 83-year-old female with fall, complains of pain. Findings: AP and lateral medial crosstable lateral image of the left lower leg were obtained. I see no acute fracture of the left tibia or fibula. Surgical clips are noted along the medial aspect of the proximal left lower leg as well as a couple clips along the medial aspect of the distal left lower leg. These are believed to be due to prior vascular surgery. Some mild atherosclerotic mass or calcification is seen. The left knee joint space and ankle mortise appear unremarkable. There is mild bone demineralization. No other focal bone lesion is seen. Impression: 1. I see no acute fracture or other significant focal bone lesion of the left tibia or fibula. 2. Surgical clips are noted along the medial aspect of the left lower leg from prior vascular surgery. 3. Mild atherosclerotic vascular calcification is seen within the calf arteries.
--- NOTE | 2018-02-21 14:29 | XRAY ---
Exam: 3 views of the left foot from 02/21/2018. Comparison: 3 views of the left foot from 08/03/2012. Indication: 83-year-old female with fall, complains of pain. Findings: AP, oblique, and lateral radiographs of the left foot were obtained. I see no acute fracture or dislocation of the left foot. Bone demineralization and some mild atherosclerotic vascular calcification is seen. A couple small surgical clips are seen adjacent to the medial malleolus. There appears to be a mild hallux valgus and bunion formation at the left first MTP joint representing no change. Mild degenerative change of the left first MTP joint is again seen. I also note minimal lateral subluxation of the base of the left great toe with respect to the distal left first metatarsal representing no change. I again see an osteophyte at the distal medial aspect of the left first metatarsal head. The tarsal-metatarsal joints align correctly. There is a normal plantar arch. No radiopaque soft tissue foreign body is seen. Impression: 1. No acute fracture or dislocation of the left foot is seen. 2. Mild hallux valgus and bunion formation overlying the left first MTP joint. Minimal lateral subluxation of the base of the left great toe and some osteophyte formation overlying the medial margin of the distal left first metatarsal head are again seen. 3. Mild atherosclerotic vascular calcification is again seen.
== END 2018-02-21 17:46 ==
LOC: ED 13:19
DX: W19.XXXA Unspecified fall, initial encounter (principal); S90.32XA Contusion of left foot, initial encounter; Z79.899 Other long term (current) drug therapy
CPT/HCPCS: 72170; 73590; 73630; 99283